=== PATIENT | female | born 1995 | race Caucasian/White ===

== ENCOUNTER 2018-09-16 14:06 | Outpatient (REF) | payer MEDICAID, SELFPAY ==
[2018-09-16 16:33] LABS: HCG Qual (Urine) Negative
== END 2018-09-16 14:26 ==
LOC: LBN 14:06
PROVIDERS: PCP Nurse Practitioner Family; Visit Provider Nurse Practitioner Family
DX: N91.2 Amenorrhea, unspecified (principal)
CPT/HCPCS: 81025

== ENCOUNTER 2018-09-19 01:00 | Outpatient (CLI) | payer MEDICAID, SELFPAY ==
--- NOTE | 2018-09-19 15:29 | DI.CT_ITS ---
SYMPTOM/DIAGNOSIS: ? STONE RT FLANK PAIN, R10.9, ABD PAIN RENAL COLIC CT: Routine examination was performed. There are no priors for comparison. There is no evidence of nephrolithiasis on the right. There is a 2 mm. non obstructing stone in the upper pole of the left kidney. No ureterolithiasis or obstructive uropathy is identified. The urinary bladder is intact. The reproductive organs are unremarkable. Lack of IV contrast does limit evaluation of the abdominal organs. The unenhanced visualized portions of the liver, spleen, pancreas, gallbladder and adrenal glands are unremarkable. The aorta is of normal caliber. The bowel shows no evidence of obstruction or inflammation. There is a normal appendix visualized. No significant abdominal or pelvic adenopathy, ascites or pneumoperitoneum is present. The lumbar spine is unremarkable. No evidence of significant foraminal or central spinal canal stenosis is present. IMPRESSION: Left nephrolithiasis. No evidence of ureterolithiasis or obstructive uropathy. Negative spine. No central spinal canal or neural foraminal stenosis is appreciated.
== END 2018-09-19 01:20 ==
PROVIDERS: PCP Nurse Practitioner Family; Visit Provider Nurse Practitioner Family
DX: R10.31 Right lower quadrant pain (principal); N20.0 Calculus of kidney
CPT/HCPCS: 74176

== ENCOUNTER 2018-09-27 16:00 | Outpatient (CLI) | payer MEDICAID, SELFPAY ==
[2018-09-27 16:54] LABS: Abs Immature Grans 0.01 k/cumm (0.0-0.09); Absolute Basophil Count 0.03 k/cumm (0.0-0.2); Absolute Eosinophil Count 0.17 k/cumm (0.0-0.7); Absolute Lymphocyte Count 1.38 k/cumm (1.2-3.4); Absolute Monocyte Count 0.31 k/cumm (0.11-0.7); Absolute Neutrophil Count 4.86 k/cumm (1.2-6.7); Basophils % 0.4; Eosinophils % 2.5; HCT 42.2 % (36.0-46.0); HGB 14.4 g/dL (12.0-15.5); Immature Grans % 0.1; Lymphocytes % 20.4; Mean Corp. HGB Concentration 34.1 g/dL (32.0-36.0); Mean Corpuscular Hemoglobin 30.4 pg (27.0-33.0); Mean Corpuscular Volume 89.2 fL (80-95); Mean Platelet Volume 11.5 fL (8.0-11.0); Monocytes % 4.6; Platelet Count 238 x1000/uL (130-400); RBC 4.73 m/cumm (4.00-5.20); RBC Distribution Width 13.6 % (11.7-14.6); White Blood Cell Count 6.76 k/cumm (4.4-10.8)
[2018-09-27 18:23] LABS: *AMPHETAMINES SCREEN URINE Negative (Negative); *BARBITURATES SCREEN URINE Negative (Negative); *BENZODIAZEPINES SCREEN URINE Negative (Negative); Cannabinoids THC POSITIVE (Negative); Cocaine Screen,Urine Negative (Negative); METHADONE URINE SCREEN Negative (Negative); OPIATES URINE SCREEN Negative (Negative)
[2018-09-27 18:30] LABS: Tricyclic Antidepressants POSITIVE (Negative)
[2018-09-27 18:33] LABS: ALT 19 U/L (12-78); AST 19 U/L (15-37); Albumin 4.1 g/dL (3.4-5.0); Alkaline Phosphatase 79 U/L (46-116); Anion Gap 12.4 mmol/L (3-11); BUN 8 mg/dL (7-18); Bilirubin, Total 0.4 mg/dL (0.2-1.0); CO2 25.6 mmol/L (21.0-32.0); CREATININE 0.88 mg/dL (0.55-1.02); Chloride 100 mmol/L (98-107); Glucose 85 mg/dL (70-100); Potassium 3.7 mmol/L (3.5-5.1); Sodium 138 mmol/L (136-145); TSH (W/Ref FT4) 1.04 uIU/mL (0.358-3.74); Total Protein 7.5 g/dL (6.4-8.2)
[2018-09-27 18:52] LABS: Vitamin B12 485 pg/mL (193-986)
[2018-09-27 19:11] LABS: Hemoglobin A1C 5.2 % (4.5-6.2)
[2018-09-27 19:28] LABS: HCG Qual (Serum) Negative
== END 2018-09-27 16:20 ==
PROVIDERS: PCP Nurse Practitioner Family; Visit Provider Nurse Practitioner Psychiatric/Mental Health
DX: F50.00 Anorexia nervosa, unspecified (principal); E63.9 Nutritional deficiency, unspecified; F33.1 Major depressive disorder, recurrent, moderate
CPT/HCPCS: 36415; 80053; 80307; 81025; 82607; 83036; 84443; 84703; 85025

== ENCOUNTER 2018-10-07 10:00 | Outpatient (CLI) | payer MEDICAID, SELFPAY ==
[2018-10-07 10:45] LABS: INR 1.1 (0.9-1.1); Prothrombin Time 10.8 sec (9.3-11.0)
[2018-10-07 11:34] LABS: Lithium 0.95 mmol/L (0.60-1.20)
== END 2018-10-07 10:20 ==
PROVIDERS: PCP Nurse Practitioner Family; Visit Provider Nurse Practitioner Psychiatric/Mental Health
DX: F33.1 Major depressive disorder, recurrent, moderate (principal); Z51.81 Encounter for therapeutic drug level monitoring; Z79.899 Other long term (current) drug therapy; R23.8 Other skin changes
CPT/HCPCS: 36415; 80178; 85610

== ENCOUNTER 2018-11-18 09:42 | Outpatient (CLI) | payer MEDICAID, SELFPAY ==
[2018-11-18 10:38] LABS: Abs Immature Grans 0.01 k/cumm (0.0-0.09); Absolute Basophil Count 0.03 k/cumm (0.0-0.2); Absolute Eosinophil Count 0.15 k/cumm (0.0-0.7); Absolute Lymphocyte Count 0.63 k/cumm (1.2-3.4); Absolute Monocyte Count 0.45 k/cumm (0.11-0.7); Basophils % 0.5; Eosinophils % 2.4; HCT 40.5 % (36.0-46.0); HGB 13.2 g/dL (12.0-15.5); Immature Grans % 0.2; Mean Corp. HGB Concentration 32.6 g/dL (32.0-36.0); Mean Corpuscular Hemoglobin 30.1 pg (27.0-33.0); Mean Corpuscular Volume 92.3 fL (80-95); Mean Platelet Volume 11.4 fL (8.0-11.0); Monocytes % 7.2; Neutrophils % 79.7; Platelet Count 249 x1000/uL (130-400); RBC 4.39 m/cumm (4.00-5.20); White Blood Cell Count 6.27 k/cumm (4.4-10.8)
[2018-11-18 12:00] LABS: Lithium 0.84 mmol/L (0.60-1.20)
[2018-11-18 12:22] LABS: ALT 23 U/L (12-78); AST 28 U/L (15-37); Albumin 3.8 g/dL (3.4-5.0); Alkaline Phosphatase 77 U/L (46-116); Anion Gap 7.5 mmol/L (3-11); BUN 11 mg/dL (7-18); Bilirubin, Total 0.4 mg/dL (0.2-1.0); CO2 30.5 mmol/L (21.0-32.0); CREATININE 0.79 mg/dL (0.55-1.02); Calcium 9.5 mg/dL (8.5-10.1); Chloride 99 mmol/L (98-107); Glucose 79 mg/dL (70-100); Sodium 137 mmol/L (136-145); Total Protein 6.9 g/dL (6.4-8.2)
== END 2018-11-18 10:02 ==
PROVIDERS: PCP Nurse Practitioner Family; Visit Provider Nurse Practitioner Psychiatric/Mental Health
DX: F31.2 Bipolar disorder, current episode manic severe with psychotic features (principal); Z51.81 Encounter for therapeutic drug level monitoring; Z79.899 Other long term (current) drug therapy
CPT/HCPCS: 36415; 80053; 80178; 85025

== ENCOUNTER 2018-11-18 14:58 | Outpatient (REF) | payer MEDICAID, SELFPAY ==
--- NOTE | 2018-11-18 14:00 | PAPFT_PTH ---
PATIENT: Edna Melgar LOC: [facility] U#:[id number] AGE/SX: 23/F ROOM: RE11/18/[address]: Mercedez Young NP : 1995 BED: DIS: 11/18/2018 SPEC #: [id number] RECD: 11/18/18 17:51 STATUS: LELIA ALBERTO #: [id number] DEBBIE: 11/18/18 14:[address]: Mercedez Young NP DEPT: [facility] Cytology RECD BY: Anu Joel ENTERED: 11/18/18 17:51 SP TYPE: PAPFT DON DR: Marlee Alvarez, SCHOOL SPEECH THERAPIST Tissues: 1 - CX/ENDOCX FOR PAP SMEARS Procedures: PAP THIN PREP/UVM Screening Comments: [id number] (CHLAMYDIA/GC)
[2018-11-21 14:41] LABS: GC Result Negative; Specimen Description SEE COMMENTS
[2018-11-21 15:32] LABS: Chlamydia Result Positive
== END 2018-11-18 15:18 ==
LOC: LBN 14:58
PROVIDERS: PCP Nurse Practitioner Family; Visit Provider Nurse Practitioner Women's Health
DX: Z12.4 Encounter for screening for malignant neoplasm of cervix (principal); Z11.3 Encounter for screening for infections with a predominantly sexual mode of transmission; Z11.51 Encounter for screening for human papillomavirus (HPV)
CPT/HCPCS: 87491; 87591; 88142

== ENCOUNTER 2018-11-25 01:38 | Outpatient (CLI) | payer MEDICAID, SELFPAY ==
--- NOTE | 2018-11-25 10:32 | PFT_ITS ---
PULMONARY FUNCTION TEST REPORT DATE OF SERVICE: November 25, 2018 REQUESTING PROVIDER: Marlee Alvarez N.P. Spirometry shows no evidence of obstructive airways disease, no bronchodilator response. Lung volumes show no evidence of restriction. Diffusion capacity normal. Airways resistance normal. IMPRESSION: Normal pulmonary function study. Clinical correlation recommended. If cold-induced asthma diagnosis is in question, proceeding with methacholine challenge testing may prove to be useful. ABIGAIL/claudine D/
[2018-11-25] MEDS: Albuterol HFA 18 GM 200 PUFF INH IH (13:59)
[2018-11-25] MEDS: Inhaler, Assist Device 1 EACH MC (13:59)
--- NOTE | 2018-11-25 14:35 | DI.RAD_ITS ---
SYMPTOMS/DIAGNOSIS: CHRONIC INTERMITTENT SOB, R06.02 PA AND LATERAL CHEST: Comparison is made with 1Feb16. The cardiac and mediastinal contours have a normal appearance. The lungs are well inflated and clear. No infiltrate, effusion or pneumothorax is seen. No bony abnormalities are identified. IMPRESSION: Negative chest x-ray.
== END 2018-11-25 01:58 ==
PROVIDERS: PCP Nurse Practitioner Family; Visit Provider Nurse Practitioner Family
DX: R06.02 Shortness of breath (principal)
CPT/HCPCS: 94060; 94150; 94726; 94729; 71046

== ENCOUNTER 2018-12-08 08:49 | Outpatient (CLI) | payer MEDICAID, SELFPAY ==
[2018-12-08 10:19] LABS: TSH (W/Ref FT4) 2.27 uIU/mL (0.358-3.74)
[2018-12-09 09:18] LABS: HIV-1/2 Ag & Ab Screen Negative (NEGAT); Hepatitis B Surface Ag Negative (NEGAT)
[2018-12-09 09:49] LABS: Hepatitis C Ab w Rflx HCV PCR Negative (NEGAT)
[2018-12-09 13:05] LABS: Syphilis Serology (RPR) Negative (Negative)
== END 2018-12-08 09:09 ==
PROVIDERS: PCP Nurse Practitioner Family; Referring Provider Nurse Practitioner Psychiatric/Mental Health; Visit Provider Nurse Practitioner Women's Health
DX: E03.9 Hypothyroidism, unspecified (principal); Z11.3 Encounter for screening for infections with a predominantly sexual mode of transmission; Z11.4 Encounter for screening for human immunodeficiency virus [HIV]; Z11.59 Encounter for screening for other viral diseases; F31.2 Bipolar disorder, current episode manic severe with psychotic features; Z51.81 Encounter for therapeutic drug level monitoring
CPT/HCPCS: 36415; 86803; 87340; 87389; 80178; 84443; 86592

== ENCOUNTER 2018-12-20 09:36 | Outpatient (CLI) | payer MEDICAID, SELFPAY ==
[2018-12-21 20:24] LABS: Alternaria Tenuis IgE <0.35 kU/L; Aspergillus Fumigatus IgE <0.35 kU/L; Bermuda Grass IgE <0.35 kU/L; Cat Epithelium IgE <0.35 kU/L; Cladosporium IgE <0.35 kU/L; Cocklebur IgE <0.35 kU/L; Cockroach IgE <0.35 kU/L; D Farinae IgE <0.35 kU/L; D Pteronyssinus IgE <0.35 kU/L; Dog Dander IgE <0.35 kU/L; Eastern Sycamore IgE <0.35 kU/L; Elm IgE <0.35 kU/L; Epicoccum purpurascens IgE <0.35 kU/L; Giant Ragweed IgE <0.35 kU/L; Lamb's Quarter IgE <0.35 kU/L; Oak IgE <0.35 kU/L; Penicillium chrysogenum IgE <0.35 kU/L; Rough Pigweed IgE <0.35 kU/L; Short Ragweed IgE <0.35 kU/L; Silver Birch IgE <0.35 kU/L; Stemphyllium IgE <0.35 kU/L; Timothy Grass IgE <0.35 kU/L; Walnut Tree IgE <0.35 kU/L
[2018-12-21 20:56] LABS: Wormwood IgE <0.35 kU/L
[2018-12-21 22:39] LABS: Cottonwood IgE <0.35 kU/L; Red Sorrel IgE <0.35 kU/L
[2018-12-23 17:42] LABS: CLASS 0; Cedar Red IgE <0.10 kU/L (<0.35); Fusarium oxysporum/vasinfectum <0.35 kU/L (<0.35); Rhodotorula IgE <0.35 kU/L (<0.35)
== END 2018-12-20 09:56 ==
PROVIDERS: PCP Nurse Practitioner Family; Visit Provider Otolaryngology Otolaryngology/Facial Plastic Surgery
DX: Z91.09 Other allergy status, other than to drugs and biological substances (principal)
CPT/HCPCS: 36415; 86003

== ENCOUNTER 2019-01-13 09:46 | Outpatient (CLI) | payer MEDICAID, SELFPAY ==
[2019-01-13 11:01] LABS: Lithium 1.42 mmol/L (0.60-1.20)
[2019-01-13 11:14] LABS: ALT 18 U/L (12-78); AST 19 U/L (15-37); Albumin 3.4 g/dL (3.4-5.0); Alkaline Phosphatase 72 U/L (46-116); Anion Gap 7.2 mmol/L (3-11); BUN 7 mg/dL (7-18); Bilirubin, Total 0.2 mg/dL (0.2-1.0); CO2 29.8 mmol/L (21.0-32.0); CREATININE 0.96 mg/dL (0.55-1.02); Chloride 104 mmol/L (98-107); Glucose 64 mg/dL (70-100); Potassium 3.6 mmol/L (3.5-5.1); Sodium 141 mmol/L (136-145); TSH (W/Ref FT4) 2.45 uIU/mL (0.358-3.74); Total Protein 6.7 g/dL (6.4-8.2)
[2019-01-13 11:19] LABS: Calcium 9.8 mg/dL (8.5-10.1)
== END 2019-01-13 10:06 ==
PROVIDERS: PCP Nurse Practitioner Family; Visit Provider Nurse Practitioner Family
DX: F31.2 Bipolar disorder, current episode manic severe with psychotic features (principal); Z51.81 Encounter for therapeutic drug level monitoring; Z79.899 Other long term (current) drug therapy; Z11.3 Encounter for screening for infections with a predominantly sexual mode of transmission
CPT/HCPCS: 36415; 80053; 87491; 87591; 80178; 84443

== ENCOUNTER 2019-01-13 12:19 | Outpatient (REF) | payer MEDICAID, SELFPAY ==
[2019-01-16 13:45] LABS: Chlamydia Result Negative; GC Result Negative; Specimen Description CERVIX
== END 2019-01-13 12:39 ==
LOC: LBN 12:19
PROVIDERS: PCP Nurse Practitioner Family; Visit Provider Nurse Practitioner Women's Health
DX: Z11.3 Encounter for screening for infections with a predominantly sexual mode of transmission (principal)
CPT/HCPCS: 87491; 87591

== ENCOUNTER 2019-01-25 09:25 | Outpatient (CLI) | payer MEDICAID, SELFPAY ==
[2019-01-25 11:18] LABS: BUN 8 mg/dL (7-18); CREATININE 0.85 mg/dL (0.55-1.02)
== END 2019-01-25 09:45 ==
PROVIDERS: PCP Nurse Practitioner Family; Visit Provider Nurse Practitioner Family
DX: F31.2 Bipolar disorder, current episode manic severe with psychotic features (principal); Z79.899 Other long term (current) drug therapy; Z51.81 Encounter for therapeutic drug level monitoring
CPT/HCPCS: 36415; 84520; 80178; 82565

== ENCOUNTER 2019-02-10 07:09 | Outpatient (CLI) | payer MEDICAID, SELFPAY ==
[2019-02-10 08:18] LABS: Lithium 1.08 mmol/L (0.60-1.20)
[2019-02-10 08:29] LABS: ALT 17 U/L (12-78); AST 18 U/L (15-37); Albumin 3.8 g/dL (3.4-5.0); Alkaline Phosphatase 74 U/L (46-116); Anion Gap 10.1 mmol/L (3-11); BUN 6 mg/dL (7-18); Bilirubin, Total 0.4 mg/dL (0.2-1.0); CO2 28.9 mmol/L (21.0-32.0); CREATININE 0.93 mg/dL (0.55-1.02); Calcium 9.6 mg/dL (8.5-10.1); Chloride 102 mmol/L (98-107); Glucose 108 mg/dL (70-100); Potassium 3.8 mmol/L (3.5-5.1); Sodium 141 mmol/L (136-145); TSH (W/Ref FT4) 2.77 uIU/mL (0.358-3.74); Total Protein 7.4 g/dL (6.4-8.2)
== END 2019-02-10 07:29 ==
PROVIDERS: PCP Nurse Practitioner Family; Visit Provider Nurse Practitioner Family
DX: F31.2 Bipolar disorder, current episode manic severe with psychotic features (principal); Z79.899 Other long term (current) drug therapy; Z51.81 Encounter for therapeutic drug level monitoring
CPT/HCPCS: 36415; 80053; 80178; 84443

== ENCOUNTER 2019-02-17 11:07 | Outpatient (REF) | payer MEDICAID, SELFPAY ==
[2019-02-20 13:55] LABS: Chlamydia Result Negative; GC Result Negative; Specimen Description URINE
== END 2019-02-17 11:27 ==
LOC: LBN 11:07
PROVIDERS: PCP Nurse Practitioner Family; Visit Provider Nurse Practitioner Women's Health
DX: Z11.3 Encounter for screening for infections with a predominantly sexual mode of transmission (principal)
CPT/HCPCS: 87491; 87591

== ENCOUNTER 2019-02-20 08:30 | Emergency (ER) | payer MEDICAID, SELFPAY ==
[2019-02-20 08:35] VITALS: BP 119/70; PULSE 100; RESP 18; TEMP 37
[2019-02-20 08:43] VITALS: RESP 18
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
--- NOTE | 2019-02-20 08:54 | NUR.NOTE ---
Nursing Note: Small bruise/hematoma noted to the right side of forehead. Pt denied dizziness, changes in vision, feeling light headed, nausea/vomiting, and loss of consciousness.
== END 2019-02-20 08:58 | disposition home or self-care (01) ==
PROVIDERS: Emergency Provider Student in an Organized Health Care Education/Training Program; PCP Nurse Practitioner Family
DX: S06.0X0A Concussion without loss of consciousness, initial encounter (principal); W22.8XXA Striking against or struck by other objects, initial encounter
CPT/HCPCS: 99283

== ENCOUNTER 2019-02-21 13:27 | Emergency (ER) | payer OTHER, SELFPAY ==
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
--- NOTE | 2019-02-21 13:46 | NUR.NOTE ---
Nursing Note: pt presents roberth working at [employer] pt got bleach in her eye. pt placed into a room immediately for flushing
[2019-02-21] MEDS: Erythromycin Ophth Oint 3.5 GM TUBE OD (14:02)
[2019-02-21 14:18] VITALS: PULSE 71; RESP 18; TEMP 37
--- NOTE | 2019-02-21 15:10 | NUR.NOTE ---
Nursing Note: Provider note faxed to [facility] for follow up this week. Abbi Belle.
== END 2019-02-21 14:18 | disposition home or self-care (01) ==
PROVIDERS: Emergency Provider Physician Assistant; PCP Nurse Practitioner Family
DX: T26.81XA Corrosions of other specified parts of right eye and adnexa, initial encounter (principal); T55.1X1A Toxic effect of detergents, accidental (unintentional), initial encounter
CPT/HCPCS: 99283

== ENCOUNTER 2019-03-15 12:44 | Emergency (ER) | payer MEDICAID, SELFPAY ==
[2019-03-15 12:52] VITALS: BP 109/70; PULSE 104; RESP 17; TEMP 37.2; O2SAT 98
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
== END 2019-03-15 13:15 | disposition home or self-care (01) ==
PROVIDERS: Emergency Provider Emergency Medicine; PCP Nurse Practitioner Family
DX: H10.32 Unspecified acute conjunctivitis, left eye (principal)
CPT/HCPCS: 99283

== ENCOUNTER 2019-04-17 08:34 | Outpatient (CLI) | payer MEDICAID, SELFPAY ==
[2019-04-17 09:51] LABS: Lithium 1.18 mmol/L (0.60-1.20)
[2019-04-17 10:03] LABS: ALT 17 U/L (12-78); AST 15 U/L (15-37); Albumin 3.3 g/dL (3.4-5.0); Alkaline Phosphatase 69 U/L (46-116); Anion Gap 7.2 mmol/L (3-11); BUN 6 mg/dL (7-18); Bilirubin, Total 0.4 mg/dL (0.2-1.0); CO2 29.8 mmol/L (21.0-32.0); CREATININE 0.85 mg/dL (0.55-1.02); Calcium 9.1 mg/dL (8.5-10.1); Chloride 106 mmol/L (98-107); Glucose 107 mg/dL (70-100); Potassium 3.7 mmol/L (3.5-5.1); Sodium 143 mmol/L (136-145); TSH (W/Ref FT4) 16.46 uIU/mL (0.36-3.74); Total Protein 6.5 g/dL (6.4-8.2)
[2019-04-17 10:23] LABS: FREE T4 0.75 ng/dL (0.76-1.46)
== END 2019-04-17 08:54 ==
PROVIDERS: PCP Nurse Practitioner Family; Visit Provider Nurse Practitioner Family
DX: F31.2 Bipolar disorder, current episode manic severe with psychotic features (principal); Z51.81 Encounter for therapeutic drug level monitoring; Z79.899 Other long term (current) drug therapy
CPT/HCPCS: 36415; 80053; 80178; 84439; 84443

== ENCOUNTER 2019-04-21 13:27 | Outpatient (CLI) | payer MEDICAID, SELFPAY ==
[2019-04-21 15:37] LABS: TSH (W/Ref FT4) 2.14 uIU/mL (0.36-3.74)
[2019-04-22 10:19] LABS: HIV-1/2 Ag & Ab Screen Negative (NEGAT)
[2019-04-22 16:47] LABS: Syphilis Total Ab w/Reflex Nonreactive (Nonreactive)
[2019-04-24 11:01] LABS: Hepatitis C Ab w Rflx HCV PCR Negative (NEGAT)
[2019-04-24 11:06] LABS: Hepatitis B Surface Ag Negative (NEGAT)
[2019-04-24 14:19] LABS: Chlamydia Result Negative; GC Result Negative
== END 2019-04-21 13:47 ==
PROVIDERS: PCP Nurse Practitioner Family; Visit Provider Nurse Practitioner Women's Health
DX: Z11.3 Encounter for screening for infections with a predominantly sexual mode of transmission (principal); E03.9 Hypothyroidism, unspecified; R30.0 Dysuria
CPT/HCPCS: 36415; 86803; 87077; 87340; 87389; 87491; 87591; 84443; 86780; 87086; 87186

== ENCOUNTER 2019-05-16 10:16 | Emergency (ER) | payer MEDICAID, SELFPAY ==
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
[2019-05-16 10:24] VITALS: BP 119/70; PULSE 101; RESP 16; TEMP 36.7; O2SAT 100
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
[2019-05-16 10:38] VITALS: BP 119/70; PULSE 101; RESP 16; TEMP 36.7; O2SAT 100
== END 2019-05-16 10:30 | disposition home or self-care (01) ==
PROVIDERS: Emergency Provider Student in an Organized Health Care Education/Training Program; PCP Nurse Practitioner Family
DX: H93.8X1 Other specified disorders of right ear (principal); L25.9 Unspecified contact dermatitis, unspecified cause
CPT/HCPCS: 99283

== ENCOUNTER 2019-05-16 14:35 | Outpatient (REF) | payer MEDICAID, SELFPAY ==
[2019-05-17 14:10] LABS: Chlamydia Result Negative; GC Result Negative; Specimen Description URINE
== END 2019-05-16 14:55 ==
LOC: LBN 14:35
PROVIDERS: PCP Nurse Practitioner Family; Visit Provider Nurse Practitioner Family
DX: Z11.3 Encounter for screening for infections with a predominantly sexual mode of transmission (principal); R30.0 Dysuria
CPT/HCPCS: 36415; 87491; 87591; 87086

== ENCOUNTER 2019-08-01 15:59 | Outpatient (REF) | payer MEDICAID, SELFPAY | END 2019-08-01 16:19 | LOC: LBN 15:59 | PROVIDERS: PCP Nurse Practitioner Family; Visit Provider Nurse Practitioner Women's Health | DX: R30.0 Dysuria (principal) | CPT/HCPCS: 87086 ==

== ENCOUNTER 2019-08-13 09:03 | Outpatient (CLI) | payer MEDICAID, SELFPAY ==
[2019-08-13 09:40] LABS: Absolute Basophil Count 0.05 k/cumm (0.0-0.2); Absolute Eosinophil Count 0.14 k/cumm (0.0-0.7); Absolute Lymphocyte Count 1.66 k/cumm (1.2-3.4); Absolute Monocyte Count 0.32 k/cumm (0.11-0.7); Basophils % 1.2; Eosinophils % 3.4; HCT 38.4 % (36.0-46.0); HGB 12.4 g/dL (12.0-15.5); Lymphocytes % 39.8; Mean Corp. HGB Concentration 32.3 g/dL (32.0-36.0); Mean Corpuscular Hemoglobin 28.4 pg (27.0-33.0); Mean Corpuscular Volume 88.1 fL (80-95); Mean Platelet Volume 12.1 fL (8.0-11.0); Monocytes % 7.7; Neutrophils % 47.9; Platelet Count 236 x1000/uL (130-400); RBC 4.36 m/cumm (4.00-5.20); White Blood Cell Count 4.17 k/cumm (4.4-10.8)
[2019-08-13 09:48] LABS: VALPROIC ACID 47.6 ug/mL (50-100)
[2019-08-13 10:11] LABS: ALT 12 U/L (14-59); AST 14 U/L (15-37); Albumin 3.4 g/dL (3.4-5.0); Alkaline Phosphatase 44 U/L (46-116); Anion Gap 10.7 mmol/L (3-11); BUN 11 mg/dL (7-18); Bilirubin, Total 0.3 mg/dL (0.2-1.0); CO2 26.3 mmol/L (21.0-32.0); CREATININE 0.92 mg/dL (0.55-1.02); Calcium 8.6 mg/dL (8.5-10.1); Chloride 104 mmol/L (98-107); Glucose 104 mg/dL (74-106); Potassium 3.9 mmol/L (3.5-5.1); Sodium 141 mmol/L (136-145); Total Protein 6.8 g/dL (6.4-8.2)
== END 2019-08-13 09:23 ==
PROVIDERS: PCP Nurse Practitioner Family; Visit Provider Nurse Practitioner Family
DX: F31.2 Bipolar disorder, current episode manic severe with psychotic features (principal); Z79.899 Other long term (current) drug therapy; Z51.81 Encounter for therapeutic drug level monitoring
CPT/HCPCS: 36415; 80053; 80164; 85025

== ENCOUNTER 2019-08-23 16:48 | Outpatient (REF) | payer MEDICAID, SELFPAY ==
[2019-08-25 15:15] LABS: Chlamydia Result Negative (Negative)
[2019-08-29 09:40] LABS: GC Result Negative (Negative)
== END 2019-08-23 17:08 ==
LOC: LBN 16:48
PROVIDERS: PCP Nurse Practitioner Family; Visit Provider Nurse Practitioner Women's Health
DX: R30.0 Dysuria (principal); Z11.3 Encounter for screening for infections with a predominantly sexual mode of transmission
CPT/HCPCS: 87491; 87591; 87086

== ENCOUNTER 2019-09-08 19:37 | Emergency (ER) | payer MEDICAID, SELFPAY ==
[2019-09-08 19:40] VITALS: BP 118/77; PULSE 98; RESP 16; TEMP 36.6; O2SAT 99
--- NOTE | 2019-09-08 19:49 | NUR.NOTE ---
Nursing Note: pt unable to void. pt asked for water. attempting to hydrate at this time.
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
[2019-09-08] MEDS: Ondansetron O.D.T. 4 MG TABEF PO (20:14)
[2019-09-08 20:18] LABS: Bilirubin Negative (Negative); Blood Negative (Negative); Clarity Sl Cloudy (Clear); Glucose Negative (Negative); Ketones Trace mg/dL (Negative); Leukocyte Esterase Small (Negative); Nitrite Negative (Negative); Specific Gravity >= 1.030 (1.005-1.025); Urobilinogen 0.2 EU/dL (Up TO 0.2); pH 5.5 (5-8)
[2019-09-08 20:33] LABS: Bacteria Rare HPF (Negative); C & S Indicated? No/Sq. Contamination; Crystals Negative HPF (Negative); Epithelial Cells Many HPF (Negative); Mucus Negative (Negative); RBC Negative HPF (0-2); WBC 20-50 HPF (0-5)
== END 2019-09-08 20:45 | disposition home or self-care (01) ==
PROVIDERS: Emergency Provider Emergency Medicine; PCP Nurse Practitioner Family
DX: R11.0 Nausea (principal); K58.9 Irritable bowel syndrome, unspecified
CPT/HCPCS: 81025; 99283; 81003; 81015

== ENCOUNTER 2019-09-19 09:27 | Outpatient (CLI) | payer MEDICAID, SELFPAY ==
[2019-09-19 10:30] LABS: Abs Immature Grans 0.01 k/cumm (0.0-0.09); Absolute Basophil Count 0.03 k/cumm (0.0-0.2); Absolute Eosinophil Count 0.07 k/cumm (0.0-0.7); Absolute Lymphocyte Count 1.27 k/cumm (1.2-3.4); Absolute Neutrophil Count 2.05 k/cumm (1.2-6.7); Basophils % 0.8; Eosinophils % 1.8; HCT 40.7 % (36.0-46.0); Immature Grans % 0.3 %; Lymphocytes % 33.2; Mean Corp. HGB Concentration 31.9 g/dL (32.0-36.0); Mean Corpuscular Hemoglobin 28.4 pg (27.0-33.0); Mean Corpuscular Volume 88.9 fL (80-95); Mean Platelet Volume 12.3 fL (8.0-11.0); Monocytes % 10.4; Neutrophils % 53.5; Platelet Count 213 x1000/uL (130-400); RBC 4.58 m/cumm (4.00-5.20); White Blood Cell Count 3.83 k/cumm (4.4-10.8)
[2019-09-19 10:38] LABS: VALPROIC ACID 111.1 ug/mL (50-100)
[2019-09-19 10:50] LABS: ALT 22 U/L (14-59); AST 21 U/L (15-37)
== END 2019-09-19 09:47 ==
PROVIDERS: PCP Nurse Practitioner Family; Visit Provider Nurse Practitioner Family
DX: F31.2 Bipolar disorder, current episode manic severe with psychotic features (principal); Z79.899 Other long term (current) drug therapy; Z51.81 Encounter for therapeutic drug level monitoring
CPT/HCPCS: 36415; 80164; 84450; 84460; 85025

== ENCOUNTER 2019-10-24 16:34 | Emergency (ER) | payer MEDICAID, SELFPAY ==
[2019-10-24 16:36] VITALS: BP 106/49; PULSE 72; TEMP 36.3; O2SAT 95
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
--- NOTE | 2019-10-24 17:30 | NUR.NOTE ---
Referral faxed to [facility] [phone].Nursing Note:
== END 2019-10-24 17:44 | disposition home or self-care (01) ==
PROVIDERS: Emergency Provider Physician Assistant; PCP Nurse Practitioner Family
DX: R11.0 Nausea (principal)
CPT/HCPCS: 81025; 99283

== ENCOUNTER 2019-11-02 01:37 | Outpatient (CLI) | payer MEDICAID, SELFPAY ==
--- NOTE | 2019-11-02 15:30 | DI.US_ITS ---
EXAM: US ABDOMEN LIMITED CLINICAL HISTORY: ruq pain/nausea/family hx of gallstones TECHNIQUE: Ultrasound performed using standard protocol of the right upper quadrant.. FINDINGS: The liver is normal in size and echogenicity. No focal liver lesions or biliary dilatation is seen . The gallbladder is unremarkable, without evidence of stones or thickening. There is no right uppe r quadrant fluid. The right kidney, pancreas and aorta are unremarkable. IMPRESSION: Negative right upper quadrant ultrasound. No evidence of cholelithiasis. DATA REPOSITORY:
== END 2019-11-02 01:57 ==
PROVIDERS: PCP Nurse Practitioner Family; Visit Provider Surgery
DX: R10.11 Right upper quadrant pain (principal); R11.0 Nausea
CPT/HCPCS: 76705

== ENCOUNTER 2019-11-02 15:53 | Outpatient (CLI) | payer MEDICAID, SELFPAY ==
[2019-11-02 16:19] LABS: VALPROIC ACID 38.4 ug/mL (50-100)
[2019-11-02 16:30] LABS: ALT 21 U/L (14-59); AST 21 U/L (15-37)
== END 2019-11-02 16:13 ==
PROVIDERS: PCP Nurse Practitioner Family; Visit Provider Nurse Practitioner Family
DX: F31.2 Bipolar disorder, current episode manic severe with psychotic features (principal); Z51.81 Encounter for therapeutic drug level monitoring; Z79.899 Other long term (current) drug therapy
CPT/HCPCS: 36415; 80164; 84450; 84460

== ENCOUNTER 2019-11-14 00:33 | Emergency (ER) | payer MEDICAID, SELFPAY ==
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
[2019-11-14 00:47] VITALS: BP 117/75; PULSE 89; RESP 18; TEMP 36.8
--- NOTE | 2019-11-14 01:04 | NUR.NOTE ---
Nursing Note: Attempt IV x 1 without success.
[2019-11-14] MEDS: Metoclopramide 10 MG/2 ML VIAL IVP (01:12)
[2019-11-14] MEDS: diphenhydrAMINE 50 MG/ML VIAL 12.5 MG IVP (01:12)
[2019-11-14] MEDS: Ketorolac 15 MG/ML VIAL IVP (01:13)
[2019-11-14] MEDS: Lactated Ringers 1,000 ML 1000 ML IV (01:14)
== END 2019-11-14 02:00 | disposition home or self-care (01) ==
PROVIDERS: Emergency Provider Emergency Medicine; PCP Nurse Practitioner Family
DX: R51 Headache (principal)
CPT/HCPCS: 96361; 96374; 96375; 99284; J1200; J1885; J2765

== ENCOUNTER 2019-11-17 03:37 | Outpatient (CLI) | payer MEDICAID, SELFPAY ==
--- NOTE | 2019-11-17 09:45 | DI.RAD_ITS ---
EXAM: XR CHEST 2V PA LATERAL CLINICAL HISTORY: r.o structural cardiopulm R00.2 PALPITATIONS TECHNIQUE: 2D digital imaging was performed. COMPARISON: No exams were available for comparison FINDINGS: MEDIASTINUM: Normal. HEART: Normal. PULMONARY VASCULATURE: Normal. LUNGS: Clear. PLEURAL SPACE: No pleural effusion or pneumothorax. BONE:Normal. OTHER FINDINGS:Normal. IMPRESSION: No acute pulmonary findings. DATA REPOSITORY: RADIATION DOSE DELIVERED:
[2019-11-17 11:33] LABS: TSH (W/Ref FT4) 0.71 uIU/mL (0.36-3.74)
== END 2019-11-17 03:57 ==
PROVIDERS: PCP Nurse Practitioner Family; Visit Provider Nurse Practitioner Family
DX: R00.2 Palpitations (principal)
CPT/HCPCS: 36415; 71046; 84443

== ENCOUNTER 2019-11-22 04:18 | Outpatient (CLI) | payer MEDICAID, SELFPAY | END 2019-11-22 04:38 | PROVIDERS: PCP Nurse Practitioner Family; Visit Provider Nurse Practitioner Family | DX: R00.2 Palpitations (principal); I49.1 Atrial premature depolarization; I49.3 Ventricular premature depolarization | CPT/HCPCS: 93225 ==

== ENCOUNTER 2019-11-23 09:27 | Outpatient (REF) | payer MEDICAID, SELFPAY | END 2019-11-23 09:47 | LOC: LBN 09:27 | PROVIDERS: PCP Nurse Practitioner Family; Visit Provider Nurse Practitioner Women's Health | DX: R30.0 Dysuria (principal) | CPT/HCPCS: 87077; 87086; 87186 ==

== ENCOUNTER 2019-11-24 08:41 | Outpatient (CLI) | payer MEDICAID, SELFPAY ==
--- NOTE | 2019-11-24 10:01 | W.HOLTRPT ---
Date of service: 11/24/19 Time of Service: 10:01 Holter Monitor Report Holter Monitor Note: This is a 2-day Holter monitor ordered for indication of palpitations. ?Patient was in normal sinus rhythm for the majority of the recording. Mean heart rate was 84 bpm. ?There were 0 episodes of supraventricular tachycardia and 3 total premature atrial contractions. ?There were 0 episodes of ventricular tachycardia and one single ventricular ectopic beat. ?There were no episodes of atrial fibrillation, no pauses greater than 3 seconds and no evidence of high degree heart block. ?There were no patient triggered events.
== END 2019-11-24 09:01 ==
PROVIDERS: PCP Nurse Practitioner Family; Visit Provider Nurse Practitioner Family
DX: R00.2 Palpitations (principal); I49.1 Atrial premature depolarization; I49.3 Ventricular premature depolarization
CPT/HCPCS: 93226

== ENCOUNTER 2020-03-04 11:38 | Outpatient (CLI) | payer MEDICAID, SELFPAY ==
[2020-03-05 00:30] LABS: COVID-19 RT-PCR UVMMC Result Negative (Negative)
== END 2020-03-04 11:58 ==
PROVIDERS: PCP Nurse Practitioner Family; Visit Provider Nurse Practitioner Family
DX: Z11.59 Encounter for screening for other viral diseases (principal); R68.89 Other general symptoms and signs
CPT/HCPCS: U0003

== ENCOUNTER 2020-03-14 15:30 | Outpatient (REF) | payer MEDICAID, SELFPAY ==
[2020-03-15 14:39] LABS: Chlamydia Result Negative (Negative); GC Result Negative (Negative)
== END 2020-03-14 15:50 ==
LOC: LBN 15:30
PROVIDERS: PCP Nurse Practitioner Family; Visit Provider Nurse Practitioner Family
DX: R30.0 Dysuria (principal); Z11.3 Encounter for screening for infections with a predominantly sexual mode of transmission
CPT/HCPCS: 87491; 87591; 87086

== ENCOUNTER 2020-04-12 02:04 | Outpatient (CLI) | payer MEDICAID, SELFPAY ==
[2020-04-12 12:42] LABS: Absolute Basophil Count 0.03 10^3/uL (0.0-0.2); Absolute Eosinophil Count 0.04 10^3/uL (0.0-0.7); Absolute Lymphocyte Count 1.84 10^3/uL (1.2-3.4); Absolute Monocyte Count 0.28 10^3/uL (0.1-0.8); Absolute Neutrophil Count 2.75 10^3/uL (1.2-6.7); Basophils % 0.6; Eosinophils % 0.8; HCT 35.5 % (36.0-46.0); HGB 11.8 g/dL (11.2-15.7); Lymphocytes % 37.2; MCH 30.4 pg (27.0-33.0); MCHC 33.2 % (32.0-36.0); MCV 91.5 fL (80-95); MPV 10.7 fL (8.0-11.0); Monocytes % 5.7; Neutrophils % 55.7; Platelet Count 202 10^3/uL (130-400); RBC 3.88 10^6/uL (3.93-5.22); RDW 14.4 % (11.7-14.6); RDW-SD 47.7 fL; WBC 4.94 10^3/uL (4.4-10.8)
[2020-04-12 13:01] LABS: PTT Activated 25.2 sec (21.0-31.4); Prothrombin Time 10.1 sec (9.3-11.0)
[2020-04-12 14:48] LABS: ALT 28 U/L (14-59); AST 28 U/L (15-37); Albumin 3.3 g/dL (3.4-5.0); Alkaline Phosphatase 71 U/L (46-116); Anion Gap 11.4 mmol/L (3-11); BUN 4 mg/dL (7-18); Bilirubin, Total 0.3 mg/dL (0.2-1.0); CO2 23.6 mmol/L (21.0-32.0); CREATININE 0.78 mg/dL (0.55-1.02); Calcium 9.1 mg/dL (8.5-10.1); Chloride 103 mmol/L (98-107); Glucose 97 mg/dL (74-106); Potassium 3.9 mmol/L (3.5-5.1); Sodium 138 mmol/L (136-145); Total Protein 6.3 g/dL (6.4-8.2)
== END 2020-04-12 02:24 ==
PROVIDERS: PCP Nurse Practitioner Family; Visit Provider Nurse Practitioner Family
DX: R23.3 Spontaneous ecchymoses (principal)
CPT/HCPCS: 36415; 80053; 85025; 85610; 85730

== ENCOUNTER 2020-04-19 03:40 | Outpatient (CLI) | payer MEDICAID, SELFPAY ==
--- NOTE | 2020-04-19 07:30 | DI.NM_ITS ---
EXAM: NM HEPATOBILIARY CCK GRP CLINICAL HISTORY: RUQ POSTPRANDIAL ABD PAIN, R10.11. COMPARISON: No exams were available for comparison EXAMINATION: Hepatic biliary scan was performed according to the usual protocol with injection of 5. 0 millicuries of technetium 99 labeled MebroFenin. Following intravenous infusion of radiopharmaceut ical there was prompt homogeneous hepatic uptake and prompt uptake in the bile ducts, small intestine , and gallbladder. Following injection 1 microgram of cholecystokinin gallbladder ejection fraction was calculated at 69 percent which is in the normal range. The patient reported mild abdominal pain following injection of CCK. FINDINGS: Normal CCK HIDA scan. IMPRESSION:
[2020-04-19] MEDS: Sincalide 5 MCG VIAL 1 MCG IJ (11:17)
== END 2020-04-19 04:00 ==
PROVIDERS: PCP Nurse Practitioner Family; Visit Provider Physical Therapy Assistant
DX: R10.11 Right upper quadrant pain (principal)
CPT/HCPCS: 78227

== ENCOUNTER 2020-08-27 15:04 | Outpatient (REF) | payer MEDICAID, SELFPAY ==
--- NOTE | 2020-08-27 13:45 | PAPFT_PTH ---
PATIENT: Edna Melgar LOC: [facility] U#:[id number] AGE/SX: 25/F ROOM: RE08/27/[address]: CRIS García : 1995 BED: DIS: 08/27/2020 SPEC #: [id number] RECD: 08/27/20 18:04 STATUS: LELIA REQ #: [id number] DEBBIE: 08/27/20 13:[address]: Malathi Davis DEPT: [facility] Cytology RECD BY: Anu Joel ENTERED: 08/27/20 18:04 SP TYPE: PAPFT DON DR: Marlee Alvarez APRN Tissues: 1 - CX/ENDOCX FOR PAP SMEARS Procedures: PAP THIN PREP/[facility] Screening Comments: [id number]
[2020-08-28 13:26] LABS: Chlamydia Result Negative (Negative); GC Result Negative (Negative)
== END 2020-08-27 15:24 ==
LOC: LBN 15:04
PROVIDERS: PCP Nurse Practitioner Family; Visit Provider Nurse Practitioner Family
DX: R30.0 Dysuria (principal); Z11.3 Encounter for screening for infections with a predominantly sexual mode of transmission; Z12.4 Encounter for screening for malignant neoplasm of cervix; R87.612 Low grade squamous intraepithelial lesion on cytologic smear of cervix (LGSIL)
CPT/HCPCS: 87491; 87591; 88142; 87086

== ENCOUNTER 2020-12-27 12:22 | Outpatient (REF) | payer MEDICAID, SELFPAY ==
[2020-12-30 15:19] LABS: Chlamydia Result Negative (Negative); GC Result Negative (Negative)
== END 2020-12-27 12:23 | disposition home or self-care (01) ==
LOC: LBN 12:22
PROVIDERS: PCP Nurse Practitioner Family; Visit Provider Nurse Practitioner Family
DX: R30.0 Dysuria (principal); Z11.3 Encounter for screening for infections with a predominantly sexual mode of transmission
CPT/HCPCS: 87491; 87591; 87086

== ENCOUNTER 2021-06-24 03:44 | Outpatient (CLI) | payer MEDICAID, SELFPAY ==
[2021-06-24 15:59] LABS: HCT 37.3 % (36.0-46.0); HGB 12.6 g/dL (11.2-15.7); MCH 31.5 pg (27.0-33.0); MCHC 33.8 % (32.0-36.0); MCV 93.3 fL (80-95); MPV 11.2 fL (8.0-11.0); Platelet Count 208 10^3/uL (130-400); RDW 11.7 % (11.7-14.6); RDW-SD 40.5 fL
[2021-06-24 16:56] LABS: ALT 24 U/L (14-59); AST 20 U/L (15-37); Albumin 3.4 g/dL (3.4-5.0); Alkaline Phosphatase 51 U/L (46-116); Anion Gap 9.2 mmol/L (3-11); BUN 7 mg/dL (7-18); Bilirubin, Total 0.3 mg/dL (0.2-1.0); CO2 26.8 mmol/L (21.0-32.0); CREATININE 0.8 mg/dL (0.55-1.02); Calcium 8.7 mg/dL (8.5-10.1); Chloride 104 mmol/L (98-107); Ferritin 22 ng/mL (8-252); Glucose 89 mg/dL (74-106); Potassium 3.9 mmol/L (3.5-5.1); Sodium 140 mmol/L (136-145); TSH (W/Ref FT4) 2.37 uIU/mL (0.36-3.74); Total Protein 6.3 g/dL (6.4-8.2)
== END 2021-06-24 03:45 | disposition home or self-care (01) ==
LOC: LBO 03:44
PROVIDERS: PCP Nurse Practitioner Family; Visit Provider Nurse Practitioner
DX: R55 Syncope and collapse (principal); F41.8 Other specified anxiety disorders; E78.00 Pure hypercholesterolemia, unspecified; R79.89 Other specified abnormal findings of blood chemistry
CPT/HCPCS: 36415; 80053; 85027; 82728; 84443

== ENCOUNTER 2021-09-22 10:53 | Outpatient (REF) | payer MEDICAID, SELFPAY ==
--- NOTE | 2021-09-22 10:30 | PAPFT_PTH ---
PATIENT: Edna Melgar LOC: [facility] U#:[id number] AGE/SX: 26/F ROOM: RE09/22/[address]: CRIS García : 1995 BED: DIS: 09/22/2021 SPEC #: [id number] RECD: 09/22/21 13:01 STATUS: LELIA REAnabela #: [id number] DEBBIE: 09/22/21 10:[address]: Malathi Davis DEPT: [facility] Cytology RECD BY: Anu Joel ENTERED: 09/22/21 13:01 SP TYPE: PAPFT OTHR DR: Marlee Alvarez APRN Tissues: 1 - CX/ENDOCX FOR PAP SMEARS Procedures: PAP THIN PREP/[facility] Screening Comments: [id number]
[2021-09-23 15:04] LABS: Chlamydia Result Negative (Negative); GC Result Negative (Negative)
== END 2021-09-22 10:54 | disposition home or self-care (01) ==
LOC: LBN 10:53
PROVIDERS: PCP Nurse Practitioner Family; Visit Provider Nurse Practitioner Family
DX: Z11.3 Encounter for screening for infections with a predominantly sexual mode of transmission (principal); Z12.4 Encounter for screening for malignant neoplasm of cervix
CPT/HCPCS: 87491; 87591; 88142

== ENCOUNTER 2021-12-26 13:27 | Outpatient (REF) | payer MEDICAID, SELFPAY | END 2021-12-26 13:28 | disposition home or self-care (01) | LOC: LBN 13:27 | PROVIDERS: PCP Nurse Practitioner Family; Visit Provider Nurse Practitioner Family | DX: R35.0 Frequency of micturition (principal) | CPT/HCPCS: 87086 ==

== ENCOUNTER 2022-04-08 14:56 | Outpatient (REF) | payer MEDICAID, SELFPAY ==
[2022-04-09 14:58] LABS: GC Result Negative (Negative)
[2022-04-09 15:14] LABS: Chlamydia Result Positive (Negative)
== END 2022-04-08 14:57 | disposition home or self-care (01) ==
LOC: LBN 14:56
PROVIDERS: PCP Nurse Practitioner Family; Visit Provider Nurse Practitioner Women's Health
DX: Z11.3 Encounter for screening for infections with a predominantly sexual mode of transmission (principal)
CPT/HCPCS: 87491; 87591

== ENCOUNTER → 2022-05-20 03:41 | Outpatient (CLI) | payer MEDICAID, SELFPAY ==
--- NOTE | 2022-05-20 07:15 | DI.US_ITS ---
Exam(s) US PELVIS TRANSVAGINAL EXAM: US PELVIS TRANSVAGINAL CLINICAL HISTORY: pelvic pain and AUB, R10.2, N93.9. TECHNIQUE: Transabdominal and transvaginal pelvic ultrasound was performed using standard protocol. FINDINGS: UTERUS: Position: Retroverted. Size: 5.2 long by 2.7 AP by 3.2 transverse cm Endometrium: 0.4 cm. Normal for patient's menstrual status. There is an IUD seen in good position. Myometrium: Unremarkable. Cervix: Unremarkable. OVARIES: Right: 2.6 x 1.2 x 3.6 cm Cyst or mass: No suspicious cystic or solid masses. Left: 2.3 x 2.8 x 2.0 cm Cyst or mass: No suspicious cystic or solid masses. DOPPLER: Color: Symmetric and uniform flow to both ovaries. CUL-DE-SAC: Free fluid: Small amount of free fluid in the cul-de-sac. Other: None. IMPRESSION: 1. Normal-appearing uterus with endometrial stripe within normal limits. 2. IUD is in good position. 3. Unremarkable bilateral ovaries. DATA REPOSITORY:
== END ==
PROVIDERS: PCP Nurse Practitioner Family; Visit Provider Nurse Practitioner Women's Health
DX: R10.2 Pelvic and perineal pain (principal); N93.9 Abnormal uterine and vaginal bleeding, unspecified; Z97.5 Presence of (intrauterine) contraceptive device
CPT/HCPCS: 76830; 76856

== ENCOUNTER 2022-06-22 17:55 | Outpatient (REF) | payer MEDICAID, SELFPAY ==
[2022-06-24 16:59] LABS: Chlamydia Result Negative (Negative); GC Result Negative (Negative)
== END 2022-06-22 17:56 | disposition home or self-care (01) ==
LOC: LBN 17:55
PROVIDERS: PCP Nurse Practitioner Family; Visit Provider Nurse Practitioner Women's Health
DX: Z11.3 Encounter for screening for infections with a predominantly sexual mode of transmission (principal)
CPT/HCPCS: 87491; 87591

== ENCOUNTER 2022-09-04 15:48 | Outpatient (REF) | payer MEDICAID, SELFPAY ==
[2022-09-08 16:55] LABS: HSV 1 DNA Result Negative (Negative); HSV 2 DNA Result Negative (Negative)
== END 2022-09-04 15:49 | disposition home or self-care (01) ==
LOC: LBN 15:48
PROVIDERS: PCP Nurse Practitioner Family; Visit Provider Advanced Practice Midwife
DX: B00.1 Herpesviral vesicular dermatitis (principal); A60.09 Herpesviral infection of other urogenital tract
CPT/HCPCS: 87529

== ENCOUNTER 2022-09-22 18:31 | Emergency (ER) | payer MEDICAID, SELFPAY ==
[2022-09-22] VITALS (18 sets, daily range): BP systolic 86–110; BP diastolic 47–65; PULSE 64–92; RESP 13–19; TEMP 37.2; O2SAT 94–100
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
[2022-09-22 18:59] LABS: Abs Immature Grans 0.04 10^3/uL (0.0-0.06); Absolute Basophil Count 0.03 10^3/uL (0.0-0.2); Absolute Eosinophil Count 0.19 10^3/uL (0.0-0.7); Absolute Lymphocyte Count 2.52 10^3/uL (1.2-3.4); Absolute Monocyte Count 0.44 10^3/uL (0.1-0.8); Absolute Neutrophil Count 5.71 10^3/uL (1.2-6.7); Basophils % 0.3; Eosinophils % 2.1; HCT 38.3 % (36.0-46.0); HGB 12.6 g/dL (11.2-15.7); Immature Grans % 0.4; Lymphocytes % 28.2; MCH 31.2 pg (27.0-33.0); MCHC 32.9 % (32.0-36.0); MCV 95 fL (80-95); MPV 10.2 fL (8.0-11.0); Monocytes % 4.9; Neutrophils % 64.1; Platelet Count 309 10^3/uL (130-400); RBC 4.04 10^6/uL (3.93-5.22); RDW 13.9 % (11.7-14.6); RDW-SD 47.7 fL; WBC 8.93 10^3/uL (4.4-10.8)
[2022-09-22] MEDS: Omnipaque 350 MG/ML 100 ML BTL 68 ML IJ (19:12)
[2022-09-22] MEDS: Normal Saline Flush 10 ML SYR IVP (19:13)
[2022-09-22 19:23] LABS: ALT 20 U/L (14-59); AST 32 U/L (15-37); Albumin 3.1 g/dL (3.4-5.0); Alkaline Phosphatase 97 U/L (46-116); Anion Gap 7.3 mmol/L (3-11); BUN 6 mg/dL (7-18); Bilirubin, Total 0.3 mg/dL (0.2-1.0); CO2 26.7 mmol/L (21.0-32.0); Calcium 8.2 mg/dL (8.5-10.1); Chloride 106 mmol/L (98-107); Estimated GFR 79.68 (mL/min/1.73m2); Glucose 121 mg/dL (74-106); Potassium 3.6 mmol/L (3.5-5.1); Sodium 140 mmol/L (136-145); Total Protein 6.4 g/dL (6.4-8.2)
[2022-09-22] MEDS: ACETAMINOPHEN 1,000 MG/100 ML BTL 400 MG IVPB (19:30)
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
[2022-09-22] MEDS: Lidocaine/Epinephri/Tetracaine Topical Gel 3 ML (19:54)
== END 2022-09-22 20:47 | disposition home or self-care (01) ==
PROVIDERS: Emergency Provider Emergency Medicine; PCP Nurse Practitioner Family
DX: S01.01XA Laceration without foreign body of scalp, initial encounter (principal); S80.02XA Contusion of left knee, initial encounter; S80.01XA Contusion of right knee, initial encounter; S40.011A Contusion of right shoulder, initial encounter; S70.01XA Contusion of right hip, initial encounter; Z23 Encounter for immunization; V67.6XXA Passenger in heavy transport vehicle injured in collision with fixed or stationary object in traffic accident, initial encounter; Y92.410 Unspecified street and highway as the place of occurrence of the external cause
CPT/HCPCS: 12001; 74177; 80053; 90471; 96374; 99285; 70450; 71260; 72125; 85025; 99284; J0131; J3490

== ENCOUNTER 2022-11-16 19:55 | Outpatient (REF) | payer MEDICAID, SELFPAY ==
[2022-11-17 14:12] LABS: Chlamydia Result Negative (Negative); GC Result Negative (Negative)
== END 2022-11-16 19:56 | disposition home or self-care (01) ==
LOC: LBN 19:55
PROVIDERS: PCP Nurse Practitioner Family; Visit Provider Advanced Practice Midwife
DX: R10.2 Pelvic and perineal pain (principal); Z11.3 Encounter for screening for infections with a predominantly sexual mode of transmission
CPT/HCPCS: 87491; 87591

== ENCOUNTER 2022-12-09 14:53 | Outpatient (REF) | payer MEDICAID, SELFPAY | END 2022-12-09 14:54 | disposition home or self-care (01) | LOC: LBN 14:53 | PROVIDERS: PCP Nurse Practitioner Family; Visit Provider Nurse Practitioner Women's Health | DX: R10.2 Pelvic and perineal pain (principal) | CPT/HCPCS: 87480; 87510; 87660 ==

== ENCOUNTER 2023-03-10 07:51 | Emergency (ER) | payer MEDICAID, SELFPAY ==
[2023-03-10 07:53] VITALS: BP 119/74; PULSE 105; RESP 18; TEMP 36.8; O2SAT 98
[2023-03-10] MEDS: Tetracaine 0.5% 4 ML BTL OP (08:29)
[2023-03-10] MEDS: Fluorescein STRIPS 100/BOX 1 MG OP (08:30)
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
== END 2023-03-10 08:36 | disposition home or self-care (01) ==
PROVIDERS: Emergency Provider Physician Assistant; PCP Nurse Practitioner Family
DX: H01.002 Unspecified blepharitis right lower eyelid (principal); H10.022 Other mucopurulent conjunctivitis, left eye
CPT/HCPCS: 99283; 99284

== ENCOUNTER 2023-05-20 13:15 | Inpatient (IN) | payer MEDICAID, SELFPAY ==
[2023-05-20] VITALS (42 sets, daily range): BP systolic 100–164; BP diastolic 66–86; PULSE 72–129; RESP 0–33; TEMP 36.6; O2SAT 71–99
--- NOTE | 2023-05-20 13:30 | RT.EKG_ITS ---
APPROVED REPORT Exam: Resting ECG Reason for Exam: OD/Poison Patient Location: E HR:92 bpm ECG Measurements Heart Rate 92 AXIS NE 133 P 48 QRSd 89 QRS 13 QT 395 T 24 QTc 489 Conclusion Sinus rhythm...normal P axis, V-rate 60- 99
[2023-05-20] MEDS: Normal Saline 1,000 ML 1000 ML IV (13:55)
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
[2023-05-20 14:25] LABS: Abs Immature Grans 0.12 10^3/uL (0.0-0.06); Absolute Eosinophil Count 0.09 10^3/uL (0.0-0.7); Basophils % 0.3; Eosinophils % 0.6; HCT 37.2 % (36.0-46.0); HGB 12.4 g/dL (11.2-15.7); Immature Grans % 0.8; Lymphocytes % 11.6; MCH 33.6 pg (27.0-33.0); MCHC 33.3 % (32.0-36.0); MCV 101 fL (80-95); MPV 11.2 fL (8.0-11.0); Monocytes % 5.2; Neutrophils % 81.5; Platelet Count 247 10^3/uL (130-400); RBC 3.69 10^6/uL (3.93-5.22); RDW 12.7 % (11.7-14.6); RDW-SD 47.8 fL; WBC 15.53 10^3/uL (4.4-10.8)
[2023-05-20 14:34] LABS: Absolute Basophil Count 0.05 10^3/uL (0.0-0.2); Absolute Monocyte Count 0.81 10^3/uL (0.1-0.8); Absolute Neutrophil Count 12.66 10^3/uL (1.2-6.7)
[2023-05-20 14:41] LABS: ALT 12 U/L (14-59); AST 16 U/L (15-37); Albumin 3.3 g/dL (3.4-5.0); Alkaline Phosphatase 84 U/L (46-116); Anion Gap 10.1 mmol/L (3-11); BUN 4 mg/dL (7-18); Bilirubin, Total 0.3 mg/dL (0.2-1.0); CO2 24.9 mmol/L (21.0-32.0); Calcium 8.2 mg/dL (8.5-10.1); Chloride 103 mmol/L (98-107); Estimated GFR 79.68 (mL/min/1.73m2); Glucose 109 mg/dL (74-106); Magnesium 1.7 mg/dL (1.8-2.4); Potassium 3.5 mmol/L (3.5-5.1); Sodium 138 mmol/L (136-145); Total Protein 6.2 g/dL (6.4-8.2); Troponin I < 50 ng/L (<or=60)
[2023-05-20] MEDS: Naloxone 0.4 MG/ML VIAL (15:08)
--- NOTE | 2023-05-20 15:36 | DI.RAD_ITS ---
Exam(s) XR PORTABLE CHEST AP EXAM: XR PORTABLE CHEST AP CLINICAL HISTORY: left chest pain. TECHNIQUE: 2D digital imaging was performed. COMPARISON: CR XR CHEST 2V PA LATERAL from 11/17/2019 FINDINGS: Single AP portable view. Heart size is upper normal. The mediastinum is not widened. Lungs are clear. No infiltrates nor obvious pleural effusions. IMPRESSION: No acute pulmonary findings on this single AP portable view of the chest. DATA REPOSITORY: RADIATION DOSE DELIVERED:
[2023-05-20] MEDS: Naloxone 0.4 MG/ML VIAL IVP ×4 (15:41→18:30)
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
[2023-05-20] MEDS: Normal Saline Flush 10 ML SYR IVP (20:08)
--- NOTE | 2023-05-20 20:52 | NUR.NOTE ---
1645-Pt admitted from the ER and is alert and oriented but withdrawn but cooperative. Within 15 minutes, pt starts to say that when her mother gets out of work at 1800, she will come to the hospital and take her home and that she is leaving. Pt explained that this should not happen as she had an OD and it was a risk of respiratory depression to go home. 1715-Dr. Conrad called and notified of this. A dose of narcan given at 1720. At 1727, pt much more alert and awake. Came out of her room asking for her clothes as she stated that she needed to be downstairs as her mother would be there soon to pick her up. [place] [facility] informed us that she could go AMA but could not be allowed to do so without a responsible adult with her and that she could not have her clothes until her mother was physically in the unit. Pt became more and more agitated, become partially undressed and was wandering around ICU looking for her clothes and trying to go into kitchen and other pt rooms. Both nurses in the icu informed her that she could not do this and that she needed to go back to her room and put her farheen back on and she could have her clothes when her mother was here. Many attempts were made to get pt to stay at least for the night but she was insistent that she wanted to leave. Eventually pt called her mother on her cell phone and this nurse talked to her on the phone and she was not outside waiting for the discharge, she was still at work and did not know that her daughter had an OD and had been admitted to the hospital. She then came to the ICU and tried to talk her daughter into staying at least 1 night. Security had been called at 1742 and was here to try to get pt to go back to her room and to stop screaming. Pt started to roll her eyes again and sao2 was in the 80's and was given another dose of narcan at 1830. After attempts to get pt to calm down and stay in the hospital, Dr. Conrad came in at 1840 to talk with patient's mother and we all tried again to get her to stay but she refused. He called [facility] and asked what time they closed and if they had OTC narcan and sold sao2 probes. IID removed by pt. 1855-pt walked out with mother and nurse Sierra Aguilar RN
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
== END 2023-05-20 18:55 | disposition left against medical advice (07) | DRG 918 ==
LOC: ER 16:15 → ICU 16:41
PROVIDERS: Admitting Provider Internal Medicine; Emergency Provider Student in an Organized Health Care Education/Training Program; PCP Nurse Practitioner Family; Visit Provider Internal Medicine
DX: T40.3X1A Poisoning by methadone, accidental (unintentional), initial encounter (principal); F33.3 Major depressive disorder, recurrent, severe with psychotic symptoms; F50.2 Bulimia nervosa; R07.89 Other chest pain; R10.2 Pelvic and perineal pain; F43.10 Post-traumatic stress disorder, unspecified; K59.00 Constipation, unspecified; G43.009 Migraine without aura, not intractable, without status migrainosus; J45.909 Unspecified asthma, uncomplicated; F60.3 Borderline personality disorder; G62.9 Polyneuropathy, unspecified; K21.00 Gastro-esophageal reflux disease with esophagitis, without bleeding; E78.5 Hyperlipidemia, unspecified; F12.20 Cannabis dependence, uncomplicated; F17.290 Nicotine dependence, other tobacco product, uncomplicated; R40.0 Somnolence; R09.02 Hypoxemia; D72.829 Elevated white blood cell count, unspecified; D75.89 Other specified diseases of blood and blood-forming organs; B00.1 Herpesviral vesicular dermatitis; A60.9 Anogenital herpesviral infection, unspecified
CPT/HCPCS: 36415; 80053; 93005; 96361; 96374; 99291; 71045; 83735; 84484; 85025; 93010; J2310

== ENCOUNTER 2023-07-01 16:08 | Outpatient (REF) | payer MEDICAID, SELFPAY | END 2023-07-01 16:09 | disposition home or self-care (01) | LOC: LBN 16:08 | PROVIDERS: PCP Nurse Practitioner Family; Visit Provider Obstetrics & Gynecology | DX: R30.0 Dysuria (principal) | CPT/HCPCS: 87077; 87086; 87186 ==

== ENCOUNTER 2023-12-17 18:29 | Outpatient (REF) | payer MEDICAID, SELFPAY ==
--- NOTE | 2023-12-17 11:00 | PAPFT_PTH ---
PATIENT: Edna Melgar LOC: [facility] U#:[id number] AGE/SX: 28/F ROOM: RE12/17/[address]: Rosa M Elena : 1995 BED: DIS: 12/17/2023 SPEC #: [id number] RECD: 12/17/23 18:55 STATUS: LELIA ALBERTO #: [id number] DEBBIE: 12/17/23 11:[address]: Rosa M Elena DEPT: [facility] Cytology RECD BY: Anu Joel ENTERED: 12/17/23 18:55 SP TYPE: PAPFT OTHR DR: Marlee Alvarez APRN Tissues: 1 - CX/ENDOCX FOR PAP SMEARS Procedures: PAP THIN PREP/UVM Screening Comments: [id number] (CHLAMYDIA/GC)
[2023-12-18 09:19] LABS: Hepatitis C Ab w Rflx HCV PCR Negative (Negative)
[2023-12-18 09:36] LABS: HIV-1/2 Ag & Ab Screen Negative (Negative)
[2023-12-20 10:51] LABS: Syphilis Serology (RPR) Negative (Negative)
[2023-12-23 14:51] LABS: Chlamydia Result Negative (Negative); GC Result Negative (Negative)
== END 2023-12-17 18:30 | disposition home or self-care (01) ==
LOC: NCHCN 18:29
PROVIDERS: PCP Nurse Practitioner Family; Visit Provider Family Medicine
DX: Z12.4 Encounter for screening for malignant neoplasm of cervix (principal); Z11.59 Encounter for screening for other viral diseases; N89.8 Other specified noninflammatory disorders of vagina
CPT/HCPCS: 86803; 87389; 87491; 87591; 88142; 86592; 87480; 87510; 87660

== ENCOUNTER 2024-09-22 15:31 | Outpatient (REF) | payer MEDICAID, SELFPAY ==
--- OUTSIDE RECORDS SUMMARY | 2024-09-22 15:33 | XMS_ITS | Encounter Summary ---
Author Organization [facility] Address [address] [place] [address] Care Team Providers Care Golf Stud Riveter Name Role Phone Marlee Alvarez NP Primary Care Provider [phone] [facility] Internal Medicine, [facility] Primary Care [place] Encounter Details Date Type Department Care Team (Late st Contact Info) Description 12/17/2023 Lab Requisition [facility] Pathology & Laboratory Medicine - [facility] [address], [place] [address] Outr Resulting Lab, Provider Social History Tobacco Use Types Packs/Day Years Used Date Smoking Tobacco: Never Assessed Interpersonal Safety Answer Date Record ed Physically Hurt Never 04/14/2020 Verbally Threaten Not on file 04/14/2020 Comments Unknown Sex and Gender Information Value Date Recorded Sex Assigned at Not on file Legal Sex Female 20:05 EDT Gender Identity Not on file Sexual Orientation Not on file documented as of this encounter Plan of Treatment Not on file documented as of this encounter Procedures Procedure Name Priority Date/Time Associated Diagnosis Comments SYPHILIS SEROLOGY Routine 12/17/2023 11: 00 EDT HEPATITIS C AB W REFLEX TO HCV RNA BY PCR Routine 12/17/2023 11:00 EDT documented in this encounter Results * SYPHILIS SEROLOGY (12/17/2023 11:00 EDT) Syphilis Serology Negative Negative 12/20/2023 10:47 EDT [facility] Blood VENOUS BLOOD / Unknown 12/17/2023 11:00 EDT 12/17/2023 21:41 EDT us Provider Outr Resulting Lab IMMUNOLOGY AND SEROL OGY ORDERABLES Final Result Performing Organization Address City/[facility]/ZIP Co de Phone Number [facility] [address] [place], [place] [address] * HEPATITIS C AB W REFLEX TO HCV RNA BY PCR (12/17/2023 11:00 EDT) Hep C Antibody Negative Negative 12/18/2023 9:14 EDT [facility] Blood VENOUS BLOOD / Unknown 12/17/2023 11:00 EDT 12/17/2023 21:41 EDT us Provider Outr Resulting Lab CHEMISTRY & BLOOD GA S ORDERABLES Final Result Performing Organization Address City/[facility] Co de Phone Number [facility] [address] [place] [address] documented in this encounter Visit Diagnoses Not on filedocumented in this encounter Care Teams Golf Stud Riveter Relationship Specialty Start Date End Date Marlee Alvarez NP PCP - General 08/27/20 02/01/24 [facility] Internal Medicine, [facility] [place] [address] PCP - General 02/02/24 documented as of this encounter
--- OUTSIDE RECORDS SUMMARY | 2024-09-22 15:33 | XMS_ITS | Clinical Summary ---
Author Organization [facility] Address [address] [place] [address] Care Team Providers Care Railroad Car Painter Name Role Phone [facility] Internal Medicine, Primary Care [place] Social History Tobacco Use Types Packs/Day Years Used Date Smoking Tobacco: Never Assessed Interpersonal Safety Answer Date Record ed Physically Hurt Never 04/14/2020 Verbally Threaten Not on file 04/14/2020 Comments Unknown Sex and Gender Information Value Date Recorded Sex Assigned at Not on file Legal Sex Female 20:05 EDT Gender Identity Not on file Sexual Orientation Not on file Plan of Treatment Health Maintenance Due Date Last Done Comments Hepatitis B Vaccine (1 of 3 - 19+ 3-dose series) 06/22 COVID-19 Vaccine ( season) 2024 Hepatitis C Screen Completed 12/17/2023 Procedures Procedure Name Priority Date/Time Associated Diagnosis Comments HEPATITIS C AB W REFLEX TO HCV RNA BY PCR Routine 12/17/2023 11:00 EDT from Last 3 Months or Most Recently Relevant to Health Maintenance Results * HEPATITIS C AB W REFLEX TO HCV RNA BY PCR (12/17/2023 11:00 EDT) Hep C Antibody Negative Negative 12/18/2023 9:14 EDT [facility] Blood VENOUS BLOOD / Unknown 12/17/2023 11:00 EDT 12/17/2023 21:41 EDT us Provider Outr Resulting Lab CHEMISTRY & BLOOD GA S ORDERABLES Final Result [facility] [address] [place] [address] from Last 3 Months or Most Recently Relevant to Health Maintenance Insurance MEDICAID [place] Care Teams Railroad Car Painter Relationship Specialty Start Date End Date [facility] Internal Medicine, [place] [address] [place] [address] PCP - General 02/02/24
--- OUTSIDE RECORDS SUMMARY | 2024-09-22 15:33 | XMS_ITS | Encounter Summary ---
Author Organization [facility] Address [address] [place] [address] Care Team Providers Care Referral Coordinator Name Role Phone Marlee Alvarez NP Primary Care Provider [phone] [facility] Internal Medicine, [place] Primary Care [place] Encounter Details Date Type Department Care Team (Late st Contact Info) Description 01/28/2024 Lab Requisition [facility] Pathology & Laboratory Medicine - [address] [address] Elyse Black MD [address] [place] [phone] Encounter for other general examination Social History Tobacco Use Types Packs/Day Years [...] Procedure Name Priority Date/Time Associated Diagnosis Comments SURGICAL PATHOLOGY Today 01/28/2024 11 :40 EDT Encounter for other general examination documented in this encounter Results * SURGICAL PATHOLOGY (01/28/2024 11:40 EDT) Note to Patient The following pathology results have been interpreted by your pathologist and may be available to you before your health provider has had the opportunity to review them. Please allow time for your provider to receive these results and explore management options, if applicable. 02/02/2024 9:11 [facility] Final Diagnosis A. ENDOCERVIX, CURETTAGE: - Specimen did not survive processing. Credit issued. 02/02/2024 9:11 [facility] Attestation There was significant resident/fellow involvement in the diagnostic evaluation of this case. By the signature below, the attending physician certifies that they have personally conducted a gross and/or microscopic examination of the described specimens and rendered or confirmed the above diagnosis. 02/02/2024 9:11 [facility] at 0911 Clinical History ASC-H benign appearing colp 02/02/2024 9:11 [facility] Gross Description A. Received in formalin labelled with proper patient identification (initials W, A) and cervix ECC is a scant amount of translucent soft tissue less than 0.1 x 0.1 x 0.1 cm. The specimen is filtered and submitted entirely in A1. Note: The specimen may not survive processing. FAISAL SNOWDEN(ASCP) 01/31/2024 8:23 02/02/2024 9:11 [facility] Resident/Teddy w: Saida Fitch MD 02/02/2024 9:11 [facility] Performing Lab [facility] 02/02/2024 9:11 [facility] Scanned Images 02/02/2024 9:11 [facility] Tissue ENDOCERVICAL STRUCTURE / Unknown 01/28/2024 11:40 EDT 01/28/2024 17:37 EDT us Elyse Black MD PATHOLOGY ORDERABLES Final R esult [facility] [address] [place] [address] documented in this encounter Visit Diagnoses Diagnosis Encounter for other general examination documented in this encounter Care Teams Referral Coordinator Relationship Specialty Start Date End Date Marlee Alvarez, TURNTABLE OPERATOR PCP - General 08/27/20 02/01/24 [facility] Internal Medicine, [place] [address] [place] [address] PCP - General 02/02/24 documented as of this encounter
--- OUTSIDE RECORDS SUMMARY | 2024-09-22 15:33 | XMS_ITS | Encounter Summary ---
Author Organization [facility] Address [address] [place] [address] Care Team Providers Care Salon Designer Name Role Phone Marlee Alvarez NP Primary Care Provider [phone] [facility] Internal Medicine, [place] Primary Care [place] Encounter Details Date Type Department Care Team (Late st Contact Info) Description 12/17/2023 Lab Requisition [facility] Pathology & Laboratory Medicine - [facility] [address] [place] [address] Outr Resulting Lab, Provider Social History Tobacco [...] Procedure Name Priority Date/Time Associated Diagnosis Comments HIV 1/2 ANTIGEN AND ANTIBODY, 4TH GENERATION Routine 12/17/2023 11:00 EDT documented in this encounter Results * HIV 1/2 ANTIGEN AND ANTIBODY, 4TH GENERATION (12/17/2023 11:00 EDT) HIV 1 and 2 Antibody/p24 Antigen, 4th Generation Negative Negative 12/18/2023 9:31 EDT [facility] Comment:If acute HIV-1 infec tion is suspected in a high risk patient, submit plasma specimen for HIV-1 RNA quantitation test. Blood VENOUS BLOOD / Unknown 12/17/2023 11:00 EDT 12/17/2023 21:41 EDT Narrative [facility] - 12/18/2023 9:31 EDT Fourth Generation assay performed on the Siemens SocietyOneaur XPT. us Provider Outr Resulting Lab IMMUNOLOGY AND SEROL OGY ORDERABLES Final Result [facility] [address] [place] [address] documented in this encounter Visit Diagnoses Not on filedocumented in this encounter Care Teams Salon Designer Relationship Specialty Start Date End Date Marlee Alvarez NP PCP - General 08/27/20 02/01/24 [facility] Internal Medicine, [address] [place] [address] PCP - General 02/02/24 documented as of this encounter
--- OUTSIDE RECORDS SUMMARY | 2024-09-22 15:33 | XMS_ITS | Encounter Summary ---
Author Organization [facility] Address [address] [place] [address] Care Team Providers Care Paraeducator Name Role Phone Marlee Alvarez NP Primary Care Provider [phone] [facility] Internal Medicine, [place] Primary Care [place]vi [place] Encounter Details Date Type Department Care Team (Late st Contact Info) Description 12/22/2023 Lab Requisition [facility] Pathology & Laboratory Medicine - [facility] [address] [place], [place] [address] Outr Resulting Lab, Provider Social History Tobacco [...] Procedure Name Priority Date/Time Associated Diagnosis Comments CHLAMYDIA/N. GONORRHOEAE AMPLIFIED NUCLEIC ACID, THINPREP Today 12/17/2023 11:00 EDT documented in this encounter Results * CHLAMYDIA/N. GONORRHOEAE AMPLIFIED RNA, THINPREP (12/17/2023 11:00 EDT) Neisseria gonorrhoeae Result Negative Negative 12/23/2023 14:45 EDT [facility] Chlamydia trachomatis Result Negative Negative 12/23/2023 14:45 EDT [facility] Pap Test CERVIX UTERI STRUCTURE / Unknown 12/17/2023 11:00 EDT 12/23/2023 9:38 EDT us Provider Outr Resulting Lab MICROBIOLOGY - GENER AL ORDERABLES Final Result [facility] [address] [place], [place] [id number] documented in this encounter Visit Diagnoses Not on filedocumented in this encounter Care Teams Paraeducator Relationship Specialty Start Date End Date Marlee Alvarez, TIRE CHANGER AIRCRAFT PCP - General 08/27/20 02/01/24 [facility] Internal Medicine, [place] [address] [place] [address] PCP - General 02/02/24 documented as of this encounter
--- OUTSIDE RECORDS SUMMARY | 2024-09-22 15:33 | XMS_ITS | Encounter Summary ---
Author Organization [facility] Address [address] [place] [address] Care Team Providers Care Leader Assembler Name Role Phone Unknown, Provider Primary Care Provider Marlee Avila TRAINING AND DEVELOPMENT ASSISTANT Primary Care Provider [phone] [facility] Internal Medicine, [place] Primary Care [place] Encounter Details Date Type Department Care Team (Late st Contact Info) Description 03/14/2020 Lab Requisition [facility] Pathology & Laboratory Medicine - [facility] [address], [place] [address] Outr Resulting Lab, Provider Social History Tobacco Use Types Packs/Day Years Used Date Smoking Tobacco: Never Assessed Comments Unknown Sex and Gender Information Value Date Recorded Sex Assigned at Not on file Legal Sex Female 20:05 EDT Gender Identity Not on file Sexual Orientation Not on file documented as of this encounter Plan of Treatment Not on file documented as of this encounter Procedures Procedure Name Priority Date/Time Associated Diagnosis Comments CHLAMYDIA/N. GONORRHOEAE AMPLIFIED NUCLEIC ACID Routine 03/14/2020 15:00 EDT documented in this encounter Results * CHLAMYDIA/N. GONORRHOEAE AMPLIFIED RNA (03/14/2020 15:00 EDT) Neisseria gonorrhoeae Result Negative Negative 03/15/2020 14:[address] [facility] Chlamydia trachomatis Result Negative Negative 03/15/2020 14:[address] [facility] Swab ENTIRE ENDOCERVIX / Unknown 03/14/2020 15:00 EDT 03/14/2020 21:00 EDT us Provider Outr Resulting Lab MICROBIOLOGY - GENER AL ORDERABLES Final Result [facility] [address] [place] [address] documented in this encounter Visit Diagnoses Not on filedocumented in this encounter Care Teams Leader Assembler Relationship Specialty Start Date End Date Unknown, Provider, PCP - General 07/06/17 08/26/20 Marlee Alvarez, TRAINING AND DEVELOPMENT ASSISTANT PCP - General 08/27/20 02/01/24 [facility] Internal Medicine, [place] [address] [place] [address] PCP - General 02/02/24 documented as of this encounter
--- OUTSIDE RECORDS SUMMARY | 2024-09-22 15:33 | XMS_ITS | Encounter Summary ---
Author Organization [facility] Address [address] [place] [address] Care Team Providers Care Bacon Stringer Name Role Phone Unknown, Provider Primary Care Provider Unava ilable Encounter Details Date Type Department Care Team (Late st Contact Info) Description 11/18/2018 Results Only [facility] [phone] Andre Leija, TUMBLER OPERATOR [address] [place] [address] Social History Tobacco Use Types Packs/Day Years [...] Procedure Name Priority Date/Time Associated Diagnosis Comments PAP TEST- RESULT ONLY Routine 11/18/2018 0:00 EST documented in this encounter Results * PAP TEST- RESULT ONLY (11/18/2018 0:00 EST) Pathology Report: CYTOPATHOLOGY REPORT Reports generated via electronic interface contain original data; however they are lacking the format of the original report. Caution should be taken when reading/interpreti ng unformatted reports. Name: ? EDNA LOGAN ? Accession #: ? [id number] : ? 1995 (Age: 23) ??F ?Collect Date: ? 11/18/2018 Location: ? [facility] ? Receive Date: ? 11/21/2018 Provider: ?ANDRE LEIJA TUMBLER OPERATOR Copy to: ?EMMA BALDERRAMA PAINT POURER ? Specimen/Source: ?Pap Test, Cervix, ThinPrep Imaging System with manual evaluation Last Menstrual Period: ? 10/22/17 ? SPECIMEN ADEQUACY ? Satisfactory for Evaluation - transformation zone component present GENERAL CATEGORIZATION ? Negative for Intraepithelial Lesion or Malignancy INTERPRETATION ? Shift in bautista present suggestive of bacterial vaginosis. ? Document reviewed and electronically signed by: ? Kori Mcdowell, CT(ASCP) ? Report Date: ??11/22/2018 13:26 End of Report [facility] 11/18/2018 11/21/2018 us Andre Leija APRN PATHOLOGY ORDERABLES Candy vizcarra Result [facility] [address] [place] [address] documented in this encounter Visit Diagnoses Not on filedocumented in this encounter Care Teams Bacon Stringer Relationship Specialty Start Date End Date Unknown, Provider, PCP - General 07/06/17 08/26/20 documented as of this encounter
--- OUTSIDE RECORDS SUMMARY | 2024-09-22 15:33 | XMS_ITS | Encounter Summary ---
Author Organization [facility] Address [address] [place] [address] Care Team Providers Care Gill Net Stringer Name Role Phone Marlee Alvarez NP Primary Care Provider [phone] [facility] Internal Medicine, [place] Primary Care Provi [place] Encounter Details Date Type Department Care Team (Late st Contact Info) Description 04/08/2022 Lab Requisition [facility] Pathology & Laboratory Medicine - [facility] [address] [place], [place] [address] Outr Resulting Lab, Provider Social History Tobacco [...] Comments CHLAMYDIA/N. GONORRHOEAE AMPLIFIED NUCLEIC ACID Routine 04/08/2022 9:45 EDT documented in this encounter Results * (ABNORMAL) CHLAMYDIA/N. GONORRHOEAE AMPLIFIED RNA (04/08/2022 9:45 EDT) Neisseria gonorrhoeae Result Negative Negative 04/09/2022 14:52 EDT [facility] Chlamydia trachomatis Result Positive(A) Negative 04/09/2022 14:52 EDT [facility] Swab ENTIRE WALL OF CERVIX / Unknown 04/08/2022 9:45 EDT 04/08/2022 21:30 EDT us Provider Outr Resulting Lab MICROBIOLOGY - GENER AL ORDERABLES Final Result Performing Organization Address City/State/[facility] Co de Phone Number [facility] [address] [place] [address] documented in this encounter Visit Diagnoses Not on filedocumented in this encounter Care Teams Gill Net Stringer Relationship Specialty Start Date End Date Marlee Alvarez, FISH TECHNOLOGIST PCP - General 08/27/20 02/01/24 [facility], [place] [address] [place] [address] PCP - General 02/02/24 documented as of this encounter
--- OUTSIDE RECORDS SUMMARY | 2024-09-22 15:33 | XMS_ITS | Encounter Summary ---
Author Organization [facility] Address [address] [place] [address] Care Team Providers Care Fmd Teacher Name Role Phone Marlee Alvarez NP Primary Care Provider [phone] [facility] Internal Medicine, [place] Primary Care Provi [place] Encounter Details Date Type Department Care Team (Late st Contact Info) Description 09/05/2022 Lab Requisition [facility] Pathology & Laboratory Medicine - [address] [id number] Outr Resulting Lab, Provider Social History Tobacco [...] Procedure Name Priority Date/Time Associated Diagnosis Comments HSV (HERPES SIMPLEX VIRUS) MOLECULAR DETECTION, PCR Routine 09/04/2022 10:00 EST documented in this encounter Results * HSV (HERPES SIMPLEX VIRUS) MOLECULAR DETECTION, PCR (09/04/2022 10:00 EST) Herpes Simplex Virus Molecular Detection 1, PCR Negative Negative 09/08/2022 16:50 EST [facility] Herpes Simplex Virus Molecular Detection 2, PCR Negative Negative 09/08/2022 16:50 EST [facility] Swab SPECIMEN FROM LABIA OBTAINED BY BIOPSY / Unknown 09/04/2022 10:00 EST 09/07/2022 16:47 EST us Provider Outr Resulting Lab MICROBIOLOGY - GENER AL ORDERABLES Final Result Performing Organization Address City/State/[facility] Co de Phone Number [facility] [address] [place] [address] documented in this encounter Visit Diagnoses Not on filedocumented in this encounter Care Teams Fmd Teacher Relationship Specialty Start Date End Date Marlee Alvarez, FILM REPLACEMENT ORDERER PCP - General 08/27/20 02/01/24 [facility] Internal Medicine, [place] [address] [place] [address] PCP - General 02/02/24 documented as of this encounter
--- OUTSIDE RECORDS SUMMARY | 2024-09-22 15:33 | XMS_ITS | Encounter Summary ---
Author Organization [facility] Address [address] [place] [address] Care Team Providers Care Urban And Regional Planner Name Role Phone Marlee Alvarez NP Primary Care Provider [phone] [facility] Internal Medicine, [place] Primary Care Provi [place] Encounter Details Date Type Department Care Team (Late st Contact Info) Description 06/23/2022 Lab Requisition [facility] Pathology & Laboratory Medicine - [facility] [address] [place], [place] [address] Outr Resulting Lab, Provider Social History Tobacco [...] Comments CHLAMYDIA/N. GONORRHOEAE AMPLIFIED NUCLEIC ACID Routine 2022 16:10 EDT documented in this encounter Results * CHLAMYDIA/N. GONORRHOEAE AMPLIFIED RNA (2022 16:10 EDT) Neisseria gonorrhoeae Result Negative Negative 06/24/2022 16:55 EDT [facility] Chlamydia trachomatis Result Negative Negative 06/24/2022 16:55 EDT [facility] Swab ENTIRE WALL OF CERVIX / Unknown 2022 16:10 EDT 06/23/2022 16:50 EDT us Provider Outr Resulting Lab MICROBIOLOGY - GENER AL ORDERABLES Final Result [facility] [address] [place] [address] documented in this encounter Visit Diagnoses Not on filedocumented in this encounter Care Teams Urban And Regional Planner Relationship Specialty Start Date End Date Marlee Alvarez, ALYSSA PCP - General 08/27/20 02/01/24 [facility] Internal [facility], [place] [address] [place] [address] PCP - General 02/02/24 documented as of this encounter
--- OUTSIDE RECORDS SUMMARY | 2024-09-22 15:33 | XMS_ITS | Referral Summary ---
Author Organization [facility] Address [address] [place] [address] Care Team Providers Care Direct Mail Clerk Name Role Phone [facility] Internal Medicine, Primary Care Provi [place] [...] Orientation Not on file Plan of Treatment Not on file Procedures Procedure Name Priority Date/Time Associated Diagnosis Comments HEPATITIS C AB W REFLEX TO HCV RNA BY PCR Routine 12/17/2023 11:00 EDT from Last 3 Months or Most Recently Relevant to Health Maintenance Results * HEPATITIS C AB W REFLEX TO HCV RNA BY PCR (12/17/2023 11:00 EDT) Hep C Antibody Negative Negative 12/18/2023 9:14 EDT [facility] Blood VENOUS BLOOD / Unknown 12/17/2023 11:00 EDT 12/17/2023 21:41 EDT us Provider Outr Resulting Lab CHEMISTRY & BLOOD GA S ORDERABLES Final Result [facility] [address] [place], [place] [address] from Last 3 Months or Most Recently Relevant to Health Maintenance Insurance MEDICAID [place] Care Teams Direct Mail Clerk Relationship Specialty Start Date End Date [facility], [place] [address] [place] [address] PCP - General 02/02/24
--- OUTSIDE RECORDS SUMMARY | 2024-09-22 15:33 | XMS_ITS | Encounter Summary ---
Author Organization [facility] Address [address] [place] [address] Care Team Providers Care Mba Intern Name Role Phone Marlee Alvarez NP Primary Care Provider [facility] Internal Medicine, [place] Primary Care Provi [place] Encounter Details Date Type Department Care Team (Late st Contact Info) Description 11/16/2022 Lab Requisition [facility] Pathology & Laboratory Medicine - [facility] [address] [place], [place] [address] Outr Resulting Lab, Provider Social History Tobacco [...] Comments CHLAMYDIA/N. GONORRHOEAE AMPLIFIED NUCLEIC ACID Routine 11/16/2022 10:30 EST documented in this encounter Results * CHLAMYDIA/N. GONORRHOEAE AMPLIFIED RNA (11/16/2022 10:30 EST) Neisseria gonorrhoeae Result Negative Negative 11/17/2022 14:07 EST [facility] Chlamydia trachomatis Result Negative Negative 11/17/2022 14:07 EST [facility] Swab ENTIRE ENDOCERVIX / Unknown 11/16/2022 10:30 EST 11/16/2022 22:06 EST us Provider Outr Resulting Lab MICROBIOLOGY - GENER AL ORDERABLES Final Result [facility] [address] [place] [address] documented in this encounter Visit Diagnoses Not on filedocumented in this encounter Care Teams Mba Intern Relationship Specialty Start Date End Date Marlee Alvarez, CALCULATOR OPERATOR PCP - General 08/27/20 02/01/24 [facility] Internal Medicine, [place] [address] [place] [address] PCP - General 02/02/24 documented as of this encounter
--- OUTSIDE RECORDS SUMMARY | 2024-09-22 15:33 | XMS_ITS | Encounter Summary ---
Author Organization [facility] Address [address] [place] [address] Care Team Providers Care Regulatory Affairs Internship Name Role Phone Marlee Alvarez NP Primary Care Provider [phone] [facility] Internal Medicine, [place] Primary Care Provi [place] Encounter Details Date Type Department Care Team (Late st Contact Info) Description 09/23/2021 Lab Requisition [facility] Pathology & Laboratory Medicine - [address] [address] Malathi [place], [facility] [address] [place] [phone] Encounter for other general examination Social [...] Name Priority Date/Time Associated Diagnosis Comments PAP TEST Today 09/22/2021 10:30 EST Encounter for other general examination documented in this encounter Results * PAP TEST (09/22/2021 10:30 EST) Specimens A. Cervix and/or Endocervix , ThinPrep Imaging System with Manual Evaluation 09/30/2021 11:05 [facility] Specimen Adequacy Satisfactory for Evaluation - transformation zone component present 09/30/2021 11:05 [facility] General Categorization Negative for intraepithelial lesion or malignancy 09/30/2021 11:05 [facility] Descriptive Diagnosis Trichomonas vaginalis present. 09/30/2021 11:05 [facility] Attestation . 09/30/2021 11:05 [facility] at [address]5 Clinical History See below 09/30/19 11:05 [facility] Performing Lab [facility] 09/30/2021 11:05 [facility] Scanned Images 09/30/2021 11:05 [facility] Papanicolaou smear specimen (specimen) CERVIX UTERI STRUCTURE / Unknown 09/22/2021 10:30 EST 09/23/2021 9:16 EST us Malathi [place] DUST COLLECTOR ORE CRUSHING PATHOLOGY ORDERABLES Final R esult [facility] [address] [place] [address] documented in this encounter Visit Diagnoses Diagnosis Encounter for other general examination documented in this encounter Care Teams Regulatory Affairs Internship Relationship Specialty Start Date End Date Marlee Alvarez NP PCP - General 08/27/20 02/01/24 [facility] Internal Medicine, [place] [address] [place] [address] PCP - General 02/02/24 documented as of this encounter
--- OUTSIDE RECORDS SUMMARY | 2024-09-22 15:33 | XMS_ITS | Encounter Summary ---
Author Organization [facility] Address [address] [place] [address] Care Team Providers Care Change Management Coordinator Name Role Phone Marlee Alvarez NP Primary Care Provider [phone] [facility] Internal Medicine, [place] Primary Care Provi [place] Encounter Details Date Type Department Care Team (Late st Contact Info) Description 12/27/2020 Lab Requisition [facility] Pathology & Laboratory Medicine - [facility] [address] [place] [address] Outr Resulting Lab, Provider Social History Tobacco [...] Comments CHLAMYDIA/N. GONORRHOEAE AMPLIFIED NUCLEIC ACID Routine 12/27/2020 11:05 EDT documented in this encounter Results * CHLAMYDIA/N. GONORRHOEAE AMPLIFIED RNA (12/27/2020 11:05 EDT) Neisseria gonorrhoeae Result Negative Negative 12/30/2020 15:14 EDT [facility] Chlamydia trachomatis Result Negative Negative 12/30/2020 15:14 EDT [facility] Swab ENTIRE ENDOCERVIX / Unknown 12/27/2020 11:05 EDT 12/27/2020 21:55 EDT us Provider Outr Resulting Lab MICROBIOLOGY - GENER AL ORDERABLES Final Result [facility] [address] [place] [address] documented in this encounter Visit Diagnoses Not on filedocumented in this encounter Care Teams Change Management Coordinator Relationship Specialty Start Date End Date Marlee Alvarez, ALYSSA PCP - General 08/27/20 02/01/24 [facility] Internal Medicine, [place] [address] [place] [address] PCP - General 02/02/24 documented as of this encounter
--- OUTSIDE RECORDS SUMMARY | 2024-09-22 15:33 | XMS_ITS | Encounter Summary ---
Author Organization [facility] Address [address] [place] [address] Care Team Providers Care Grape Cutter Name Role Phone Unknown, Provider Primary Care Provider Marlee Avila NP Primary Care Provider [phone] [facility] Internal Medicine, [place] Primary Care Provi [place] Encounter Details Date Type Department Care Team (Late st Contact Info) Description 08/24/2019 Lab Requisition [facility] Pathology & Laboratory Medicine - [facility] [address] [place] [address] Unknown, Provider, Social History Tobacco Use Types Packs/Day Years [...] Comments CHLAMYDIA/N. GONORRHOEAE AMPLIFIED NUCLEIC ACID Routine 08/23/2019 14:10 EST documented in this encounter Results * CHLAMYDIA/N. GONORRHOEAE AMPLIFIED RNA (08/23/2019 14:10 EST) Neisseria gonorrhoeae Result Negative Negative 08/25/2019 15:10 EST [facility] Chlamydia trachomatis Result Negative Negative 08/25/2019 15:10 EST [facility] Swab SPECIMEN FROM UTERINE CERVIX / Unknown Swab / Unknown 08/23/2019 14:10 EST 08/24/2019 17:06 EST us Provider Unknown MICROBIOLOGY - GENERAL ORDER MARIE Final Result [facility] [address] [place] [address] documented in this encounter Visit Diagnoses Not on filedocumented in this encounter Care Teams Grape Cutter Relationship Specialty Start Date End Date Unknown, Provider, PCP - General 07/06/17 08/26/20 Marlee Alvarez, Z OS MAINFRAME SYSTEMS PROGRAMMER PCP - General 08/27/20 02/01/24 [facility] Internal Medicine, [place] [address] [place] [address] PCP - General 02/02/24 documented as of this encounter
--- OUTSIDE RECORDS SUMMARY | 2024-09-22 15:33 | XMS_ITS | Continuity of Care Document ---
Author Organization [facility] Address [address] [place] [address] Encounter LTT[facility] FIN NBR [id number] Date(s): 11/29/22 - 12/01/[address] [id number] Encounter Diagnosis Renal insufficiency(Discharge Diagnosis) - 11/29/22 Cocaine abuse(Discharge Diagnosis) - 11/29/22 Bipolar disorder(Discharge Diagnosis) - 11/29/22 Substance abuse(Discharge Diagnosis) - 11/29/22 Suicidal ideation(Discharge Diagnosis) - 11/29/22 Discharge Disposition: Transfer to Higher Level of Care Attending Physician: Alcon Jacobo MD Admitting Physician: Alcon Jacobo MD Allergies, Adverse Reactions, Alerts Substance Reaction Severity Status codeine 1 Unknown Active penicillin 2 Unknown Active sulfa drugs 3 Unknown Active Wellbutrin 4 Unknown Active Latex 5 Unknown Active 1dry heaving 2rash 3rash 4pinpoint rash 5burning rash Assessment and Plan Diagnostic Tests Pending * Sodium Level Urine 11/29/22 * Creatinine Urine 11/29/22 Functional Status 12/01/22 Personal Care Provided Shower 11/30/22 Breakfast Percent 100 1 11/29/22 Living Environment No Living Environmen t Information Available Lives In [facility] home Lives With Parent(s)/Guardian Living Situation Home independently 11/29/22 Family Member Travel History No recent t ravel Recent Travel History No recent travel Other exposure to Infectious Disease Non e 1Result Comment: mixed veggies breakfast burrito Medications cetirizine 10 mg oral tablet 10 mg = 1 tab, Oral, every morning, 0 Refill(s) Start Date: 11/29/22 Status: Ordered clonazePAM 1.5 mg =, Oral, TID, takes 1 mg and 0.5 mg tabs Start Date: 11/30/22 Status: Ordered cyproheptadine 4 mg oral tablet 8 mg = 2 tab, Oral, BID, 0 Refill(s), 12/09/22 8:59:00 EDT Start Date: 11/29/22 Stop Date: 12/09/22 Status: Ordered Flax Seed Oil oral capsule 1,200 mg, Oral, Daily, 0 Refill(s) Start Date: 11/29/22 Status: Ordered gabapentin 800 mg oral tablet 800 mg = 1 tab, Oral, TID, 0 Refill(s) Start Date: 11/29/22 Status: Ordered Latuda 200 mg =, Oral, With Evening Meal, takes 120 mg and 80 mg tabs Start Date: 11/30/22 Status: Ordered magnesium oxide 250 mg oral tablet 250 mg = 1 tab, Oral, every evening, 0 Refill(s) Start Date: 11/29/22 Status: Ordered Melatonin 3 mg oral tablet 6 mg 2 tab, Oral, every night at bedtime Start Date: 11/29/22 Status: Ordered montelukast 10 mg oral tablet 10 mg = 1 tab, Oral, every evening, 0 Refill(s) Start Date: 11/29/22 Status: Ordered multivitamin adult, oral tablet 1 tab, Oral, Daily, Alive! multivitamin Start Date: 11/30/22 Status: Ordered prazosin 1 mg oral capsule 2 mg =, Oral, every night at bedtime Start Date: 11/29/22 Status: Ordered traZODone 100 mg oral tablet 300 mg =, Oral, every night at bedtime, 0 Refill(s) Start Date: 11/29/22 Status: Ordered valACYclovir 1 g oral tablet 1 g = 1 tab, Oral, every morning, 0 Refill(s) Start Date: 11/29/22 Status: Ordered Mental Status 11/29/22 Eye Opening Response [place] Spontaneous ly Best Verbal Response [place] Oriented Best Motor Response Renny Obeys comman ds Renny Coma Score 15 Problem List No Known Problems Results Laboratory List Name Date Potassium Level 12/01/22 Automated Diff 12/01/22 Basic Metabolic Panel (BMP) 12/01/22 CBC w/ Diff 12/01/22 Lactic Acid 12/01/22 Magnesium Level 12/01/22 Phosphorus Level 12/01/22 CBC w/ Diff 11/30/22 Automated Diff 11/30/22 Basic Metabolic Panel (BMP) 11/30/22 Lactic Acid 11/30/22 Magnesium Level 11/30/22 Phosphorus Level 11/30/22 Basic Metabolic Panel (BMP) 11/29/22 Blood Gas Venous 11/29/22 Creatine Kinase 11/29/22 Creatine Kinase 11/29/22 Creatine Kinase 11/29/22 Magnesium Level 11/29/22 Phosphorus Level 11/29/22 SARS-CoV-2 (COVID-19) PCR (GeneXpert) Acetaminophen Level 11/29/22 Alcohol Lvl (ETOH Level) 11/29/22 CBC w/ Diff 11/29/22 Comprehensive Metabolic Panel (CMP) 11/29 Drug Screen Urine 11/29/22 Free T4 11/29/22 HIV Ag/Ab Combo 1/2 11/29/22 Test Urine Qual 11/29/22 Salicylate Level 11/29/22 TSH w/ Rflx to Free T4 11/29/22 Urinalysis Microscopic 11/29/22 Urinalysis with Micro if Indicated and C ulture if Indicated 11/29/22 Automated Diff 11/29/22 Most recent to oldest [Reference Range]: 1 2 3 WBC [4.8-10.8 K/mcL] 8.7 K/mcL (12/01/22 6:30 AM) 7.1 K/mcL (11/30/22 3:17 PM) 11.5 K/mcL *HI* (11/29/22 1:21 PM) RBC [4.20-5.40 Million/mcL] 3.34 Million /mcL *LOW* (12/01/22 6:30 AM) 3.26 Million/mcL *LOW* (11/30/22 3:17 PM) 3.84 Million/mcL *LOW* (11/29/22 1:21 PM) Neutro Auto [42.2-75.2 %] 68.6 % (12/01/22 6:30 AM) 66.9 % (11/30/22 3:17 PM) 80.9 % *HI* (11/29/22 1:21 PM) Lymph Auto [20.5-51.1 %] 20.4 % *LOW* (12/01/22 6:30 AM) 21.3 % (11/30/22 3:17 PM) 11.1 % *LOW* (11/29/22 1: PM) Terry Auto [1.7-9.3 %] 8.0 % (12/01/22 6:30 AM) 9.6 % *HI* (11/30/22 3:17 PM) 7.0 % (11/29/22 1:21 PM) Basophil Auto [0.0-0.8 %] 0.3 % (12/01/22 6:30 AM) 0.6 % (11/30/22 3:17 PM) 0.3 % (11/29/22 1:21 PM) BUN [8-26 mg/dL] 7 mg/dL *LOW* (12/01/22 6:30 AM) 11 mg/dL (11/30/22 2:05 PM) 16 mg/dL (11/29/22 10:33 PM) U Amph Scrn [Negative] Negative (11/29/22 1: PM) UA Color [Yellow] Yellow (11/29/22 1: PM) UA WBC [0-3] 4-6 *ABN* (11/29/22 1:21 PM) Glucose Level [74-106 mg/dL] 93 mg/dL (12/01/22 6:30 AM) 111 mg/dL *HI* (11/30/22 2:05 PM) 122 mg/dL *HI* (11/29/22 10:33 PM) Potassium Level [3.5-5.1 mmol/L] 3.3 mmol/L *LOW* (12/01/22 2:38 PM) 3.1 mmol/L *LOW* (12/01/22 6:30 AM) 3.7 mmol/L (11/30/22 2:05 PM) Baso Absolute [0.0-0.2 K/mcL] 0.0 K/mcL (12/01/22 6:30 AM) 0.0 K/mcL (11/30/22 3:17 PM) 0.0 K/mcL (11/29/22 1:21 PM) U Benzodia Scrn [Negative] Negative (11/29/22 1:21 PM) MCV [81.0-99.0 fL] 94.0 fL (12/01/22 6:30 AM) 94.2 fL (11/30/22 3:17 PM) 91.7 fL (11/29/22 1:21 PM) UA Urobilinogen [0.2] 0.2 (11/29/22 1:21 PM) T4 Free [0.61-1.12 ng/dL] 1.16 ng/dL *HI* (11/29/22 1:21 PM) UA Bili [Negative] Negative (11/29/22 1:21 PM) CO2 Total Venous [22.0-26.0 mmol/L] 25.4 mmol/L (11/29/22 10:33 PM) UA Ketones [Negative] Negative (11/29/22 1:21 PM) HCO3 Venous [22.0-29.0 mmol/L] 24.4 mmol/L (11/29/22 10:33 PM) AST [15-41 IntlUnit/L] 32 IntlUnit/L (11/29/22 1:21 PM) ALT [14-54 IntlUnit/L] 20 IntlUnit/L (11/29/22 1:21 PM) MCHC [32.0-36.0 g/dL] 35.4 g/dL (12/01/22 6:30 AM) 35.2 g/dL (11/30/22 3:17 PM) 35.5 g/dL (11/29/22 1:21 PM) Osmolality [275-295 mOsm/kg] 270 mOsm/kg *LOW* (12/01/22 6:30 AM) 276 mOsm/kg (11/30/22 2:05 PM) 261 mOsm/kg *LOW* (11/29/22 10:33 PM) Sodium Level [134-143 mmol/L] 136 mmol/L (12/01/22 6:30 AM) 138 mmol/L (11/30/22 2:05 PM) 129 mmol/L *LOW* (11/29/22 10:33 PM) UA RBC [0-3] 4-6 *ABN* (11/29/22 1:21 PM) UA Leuk Est [Negative] Trace *ABN* (11/29/22 1:21 PM) Lymph Absolute [1.2-3.4 K/mcL] 1.8 K/mcL (12/01/22 6:30 AM) 1.5 K/mcL (11/30/22 3:17 PM) 1.3 K/mcL (11/29/22 1:21 PM) UA Nitrite [Negative] Negative (11/29/22 1:21 PM) UA Glucose [Negative] Negative (11/29/22 1:21 PM) Hct [37.0-47.0 %] 31.4 % *LOW* (12/01/22 6:30 AM) 30.7 % *LOW* (11/30/22 3:17 PM) 35.2 % *LOW* (11/29/22 1:21 PM) UA Bacteria [None Seen] 1+ *ABN* (11/29/22 1:21 PM) U Cocaine Scrn [Negative] Positive *ABN* (11/29/22 1: PM) Calcium Level [8.9-10.3 mg/dL] 7.7 mg/dL *LOW* (12/01/22 6:30 AM) 8.0 mg/dL *LOW* (11/30/22 2:05 PM) 7.4 mg/dL *LOW* (11/29/22 10:33 PM) Terry Absolute [0.1-0.6 K/mcL] 0.7 K/mcL *HI* (12/01/22 6:30 AM) 0.7 K/mcL *HI* (11/30/22 3:17 PM) 0.8 K/mcL *HI* (11/29/22 1:21 PM) Phosphorus Level [2.5-4.9 mg/dL] 3.9 mg/dL (12/01/22 6:30 AM) 2.8 mg/dL (11/30/22 2:05 PM) 2.7 mg/dL (11/29/22 2:50 PM) Albumin Level [3.5-5.0 g/dL] 3.3 g/dL *LOW* (11/29/22 1:21 PM) Protein Total [6.5-8.1 g/dL] 6.8 g/dL (11/29/22 1:21 PM) UA Protein [Negative] Negative (11/29/22 1:21 PM) MCH [27.0-31.0 pg] 33.2 pg *HI* (12/01/22 6:30 AM) 33.1 pg *HI* (11/30/22 3:17 PM) 32.6 pg *HI* (11/29/22 1:21 PM) Magnesium Level [1.8-2.5 mg/dL] 1.4 mg/dL *LOW* (12/01/22 6:30 AM) 1.8 mg/dL (11/30/22 2:05 PM) 2.3 mg/dL (11/29/22 2:50 PM) Neutro Absolute [1.4-6.5 K/mcL] 6.0 K/mcL (12/01/22 6:30 AM) 4.8 K/mcL (11/30/22 3:17 PM) 9.3 K/mcL *HI* (11/29/22 1: PM) Bilirubin Total [0.2-1.2 mg/dL] 0.7 mg/dL (11/29/22 1:21 PM) Hgb [12.0-16.0 g/dL] 11.1 g/dL *LOW* (12/01/22 6:30 AM) 10.8 g/dL *LOW* (11/30/22 3:17 PM) 12.5 g/dL (11/29/22 1:21 PM) Alk Phos [38-130 IntlUnit/L] 111 IntlUni t/L (11/29/22 1:21 PM) UA Blood [Negative] Large *ABN* (11/29/22 1:21 PM) MPV [7.4-10.4 fL] 10.4 fL (12/01/22 6:30 AM) 9.9 fL (11/30/22 3:17 PM) 10.1 fL (11/29/22 1:21 PM) pCO2 [place] [42.0-53.0 mmHg] 32.0 mmHg *LOW* (11/29/22 10:33 PM) Salicylate Level [<=30.0 mg/dL] <4.0 mg/dL (11/29/22 1:21 PM) Ethanol Level [0.00-0.08 g/dL] See Comment g/dL 1 *NA* (11/29/22 1:21 PM) UA Spec Grav 1.010 *NA* (11/29/22 1: PM) Platelets [130-400 K/mcL] 298 K/mcL (12/01/22 6:30 AM) 315 K/mcL (11/30/22 3:17 PM) 360 K/mcL (11/29/22 1:21 PM) CO2 [22-32 mmol/L] 25 mmol/L (12/01/22 6:30 AM) 25 mmol/L (11/30/22 2:05 PM) 21 mmol/L *LOW* (11/29/22 10:33 PM) Eos Absolute [0.0-0.2 K/mcL] 0.2 K/mcL (12/01/22 6:30 AM) 0.1 K/mcL (11/30/22 3:17 PM) 0.0 K/mcL (11/29/22 1:21 PM) U Pau Scrn [Negative] Negative (11/29/22 1:21 PM) Lactic Acid Lvl [0.5-2.2 mmol/L] 0.7 mmol/L (12/01/22 6:30 AM) 2.2 mmol/L (11/30/22 2:05 PM) UA Squam Epithelial [0-3] 4-6 (11/29/22 1:21 PM) TSH [0.45-5.33 mIntlUnit/mL] 0.33 mIntlU nit/mL *LOW* (11/29/22 1:21 PM) UA pH 5.00 *NA* (11/29/22 1:21 PM) pH [place] [7.32-7.42 pH unit(s)] 7.49 pH unit(s) *HI* (11/29/22 10:33 PM) U Opiate Scrn [Negative] Negative (11/29/22 1:21 PM) Base Excess Venous 1.7 *NA* (11/29/22 10:33 PM) UA Appear [Clear] Slightly Cloudy *ABN* (11/29/22 1:21 PM) Acetaminophen Level [10.0-30.0 ug/mL] <10.0 ug/mL (11/29/22 1:21 PM) Chloride Level [98-111 mmol/L] 106 mmol/L (12/01/22 6:30 AM) 101 mmol/L (11/30/22 2:05 PM) 103 mmol/L (11/29/22 10:33 PM) U Oxy Scrn [Negative] Negative (11/29/22 1:21 PM) U PCP Scrn [Negative] Negative (11/29/22 1:21 PM) RDW-CV [11.5-14.5 %] 13.1 % (12/01/22 6:30 AM) 12.9 % (11/30/22 3:17 PM) 12.6 % (11/29/22 1:21 PM) A/G Ratio 0.9 *NA* (11/29/22 1:21 PM) BUN/Creat Ratio [8.0-20.0] 5.8 *LOW* (12/01/22 6:30 AM) 6.1 *LOW* (11/30/22 2:05 PM) 5.2 *LOW* (11/29/22 10:33 PM) Globulin 3.5 *NA* (11/29/22 1:21 PM) U THC Scr [Negative] Positive *ABN* (11/29/22 1:21 PM) U PPX Scr [Negative] Negative (11/29/22 1:21 PM) U Methadone Scr [Negative] Negative (11/29/22 1:21 PM) Imm Gran Absolute 0.02 *NA* (12/01/22 6:30 AM) 0.02 *NA* (11/30/22 3:17 PM) 0.04 *NA* (11/29/22 1:21 PM) Imm Gran Auto [0.0-0.5 %] 0.2 % (12/01/22 6:30 AM) 0.3 % (11/30/22 3:17 PM) 0.3 % (11/29/22 1:21 PM) UA Culture Ind?. [No] Yes (11/29/22 1:21 PM) Urine Srce Clean Catch (11/29/22 1:21 PM) U Buprenorph Scr [Negative] Negative (11/29/22 1:21 PM) U mAMP Scr [Negative] Negative (11/29/22 1:21 PM) U TCA Scr [Negative] Negative (11/29/22 1:21 PM) SARS-CoV-2 (COVID-19) PCR (GeneXpert) [Negative] Negative (11/29/22 2:07 PM) Creatinine Level [0.44-1.00 mg/dL] 1.21 mg/dL *HI* (12/01/22 6:30 AM) 1.81 mg/dL *HI* (11/30/22 2:05 PM) 3.10 mg/dL *HI* (11/29/22 10:33 PM) Employed in healthcare? No *NA* (11/29/22 2:07 PM) Symptomatic as defined by CDC? No *NA* (11/29/22 2:07 PM) Hospitalized due to COVID-19? No *NA* (11/29/22 2:07 PM) In ICU? No *NA* (11/29/22 2:07 PM) Group care resident? No *NA* (11/29/22 2:07 PM) status? Not *NA* (11/29/22 2:07 PM) Anion Gap [3.0-12.0] 5.0 (12/01/22 6:30 AM) 12.0 (11/30/22 2:05 PM) 5.0 (11/29/22 10:33 PM) HIV 1/2 Ag/Ab Combo by CMIA [Non Reactive] Non Reactive (11/29/22 1:21 PM) Eos, Auto [0.00-3.00 %] 2.50 % (12/01/22 6:30 AM) 1.30 % (11/30/22 3:17 PM) 0.40 % (11/29/22 1:21 PM) U hCG Ql [Negative] Negative (11/29/22 1:21 PM) Instr Ethanol Lvl [<=5 mg/dL] <5 mg/dL (11/29/22 1:21 PM) eGFR CKD-EPI [>=60 mL/min/1.73 m2] 63 mL/min/1.73 m2 (12/01/22 6:30 AM) 39 mL/min/1.73 m2 *LOW* (11/30/22 2:05 PM) 20 mL/min/1.73 m2 *LOW* (11/29/22 10:33 PM) CK [38-234 unit/L] 126 unit/L 2 (11/29/22 10:33 PM) 158 unit/L 3 (11/29/22 8:32 PM) 182 unit/L 4 (11/29/22 2:50 PM) 1Result Comment: Unable to calculate ratio value as result is less than the linear limit. 2Result Comment: CK run at [facility]. 3Result Comment: CK run at [facility]. 4Result Comment: CK run at [facility]. Orders for Microbiology Reports Name Date Urine Culture 11/29/22 Microbiology Reports TEST:Urine Culture STATUS:Auth (Verified) BODY SITE:Clean Catch SOURCE:Urine COLLECTED DATE/TIME:11/29/22 1:21 PM FINAL REPORT No growth of uropathogens Radiology Reports * Exam Date Time Procedure Performing Provider Status 11/29/22 2:[address] Abdomen and Pelvi s w/o Contrast Mayra Anderson; Auth (Verified) Notes: (CT Abdomen and Pelvis w/o Contrast) Reason For Exam: flank pain/STONE CT Abdomen and Pelvis w/o Contrast PROCEDURE INFORMATION: Exam: CT Abdomen And Pelvis Without Contrast Exam date and time: 11/29/2022 2:30 PM Age: 27 years old Clinical indication: Abdominal pain; Flank; Left; Additional info: Flank pain/stone TECHNIQUE: Imaging protocol: Computed tomography of the abdomen and pelvis without contrast. Radiation optimization: All CT scans at this facility use at least one of these dose optimization techniques: automated exposure control; mA and/or kV adjustment per patient size (includes targeted exams where dose is matched to clinical indication); or iterative reconstruction. REPORTING DATA: Count of CT and Cardiac NM exams in prior 12 months: This patient has received 0 known CTs and 0 known cardiac nuclear medicine studies in the 12 months prior to the current study. COMPARISON: US ABDOMINAL COMPLETE 07/01/2017 9:11 AM FINDINGS: Limitations: Evaluation for solid parenchymal lesions is suboptimal on this examination due to lack of intravenous contrast. Liver: Normal. No mass. Gallbladder and bile ducts: Normal. No calcified stones. No ductal dilation. Pancreas: Normal. No ductal dilation. Spleen: Normal. No splenomegaly. Adrenal glands: Normal. No mass. Kidneys and ureters: See Reproductive finding. Stomach and bowel: No evidence of bowel obstruction or significant bowel wall thickening. Appendix: No evidence of appendicitis. Intraperitoneal space: Unremarkable. No free air. No significant fluid collection. Vasculature: Unremarkable. No abdominal aortic aneurysm. Lymph nodes: Unremarkable. No enlarged lymph nodes. Urinary bladder: Unremarkable as visualized. No bladder calculi. Reproductive: An IUD is in place within a retroverted uterus.No stones identified within either kidney or along the course of either ureter. There is no evidence of hydronephrosis or hydroureter. Bones/joints: Unremarkable. No acute fracture. Soft tissues: Unremarkable. IMPRESSION: No acute findings. No renal/ureteral calculi or hydronephrosis. THIS DOCUMENT HAS BEEN ELECTRONICALLY SIGNED BY SAROJ WICK MD on 11/29/2022 03:50 PM Final Signed by: Saroj Wick MD Signed (Electronic Signature): 11/29/2022 3:50 pm Vital Signs Most recent to oldest [Reference Range]: 1 2 3 Temperature Axillary [35.2-38 Deg C] 37.1 Deg C (11/29/22 5:54 PM) Temperature Tympanic [36.6-37.9 Deg C] 37.1 Deg C (11/29/22 5:59 PM) Temperature Temporal Artery [36-38 Deg C] 36.4 Deg C (12/01/22 3:32 PM) 36.6 Deg C (12/01/22 9:51 AM) 36.4 Deg C 1 (12/01/22 4:52 AM) Temperature Temporal Artery (DegF) [97.3-100 Deg F] 97.88 Deg F (11/30/22 2:26 PM) 98.78 Deg F (11/30/22 4:05 AM) Peripheral Pulse Rate [60-100 bpm] 90 bpm (12/01/22 3:32 PM) 71 bpm (12/01/22 9:51 AM) 91 bpm (12/01/22 12:00 AM) Respiratory Rate [12-24 br/min] 18 br/min (12/01/22 3:32 PM) 18 br/min (12/01/22 9:51 AM) 18 br/min (12/01/22 4:52 AM) Blood Pressure [90-140/60-90 mmHg] 115/74mmHg (12/01/22 3:32 PM) 127/69mmHg (12/01/22 9:51 AM) 110/63mmHg (12/01/22 12:00 AM) Mean Arterial Pressure, Cuff [65-140 mmHg] 98 mmHg (11/29/22 5:54 PM) Blood Pressure Location Right arm (11/29/22 5:54 PM) Patient Position BP Sitting (11/29/22 5:54 PM) Weight 64.9 kg (11/30/22 12:48 PM) 64.700 kg (11/29/22 5:59 PM) 64.7 kg (11/29/22 5:59 PM) Weight Dosing 64.700 kg (11/29/22 5:59 PM) 58.97 kg (11/29/22 1:07 PM) Weight Estimated 58.97 kg (11/29/22 12:44 PM) Height 162.600 cm (11/29/22 5:59 PM) Height/Length Dosing 162.600 cm (11/29/22 5:59 PM) 163.000 cm (11/29/22 1:07 PM) Body Mass Index 24.470 kg/m2 (11/29/22 5:59 PM) Height/Length Estimated 163.000 cm (11/29/22 12:44 PM) 1Result Comment: Patient refused to take her other vital signs such as Blood Pressure, Heart Rate & SpO2. Social History Social History Type Response Tobacco Never tobacco user T obacco Use:. 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 Last used crack on . History Of Present Illness: This patient is a 27-year-old female??with a history of crack cocaine use??who presents today for evaluation of suicidal ideation??and substance abuse.?The patient states that??she has been using crack cocaine??by smoking it multiple times a day but not every day.?? Recently she has been having suicidal thoughts although did not describe having a plan.?? She states she has tried to commit suicide in the past but does not remember how.?? Patient denies any homicidal ideation. ??The patient??is currently living with her mother who is here at the bedside.?? Patient denies any hallucinations. ??She is states that as far as??physical complaints she has??some mild bilateral flank discomfort which she describes as being a muscle tightening??and denies any urinary symptoms associated with it. ??She also??has had??a sore inside of her mouth??for which she took 1 day of valacyclovir for??but it did not resolve.?? Patient last use crack cocaine on . Review of Systems: CONSTITUTIONAL:??No fevers or chills. EYES:??No change in vision. ENT:??No sore throat. ??No headache. ??No neck pain. CARDIOVASCULAR:??No chest pain, palpitations or passing out episodes. RESPIRATORY:??No cough, shortness of breath or hemoptysis. GI:??No abdominal pain. No nausea, vomiting or diarrhea. :??+change in urination. SKIN:??No rash. NEUROLOGIC:??No numbness or weakness. MUSCULOSKELETAL:??No swelling or pain. PSYCHIATRIC:??+depression. LYMPH:??No swelling. Review of systems otherwise as stated in HPI Physical Exam Vitals & Measurements T:??36.9?C ??(Temporal Artery)?? HR:??119??(Peripheral)?? RR:??18?? BP:??144/86?? SpO2:??100%?? HT:??163.000??cm?? WT:??58.97??kg??(Estimated)?? O2 Flow Rate:??0?? General: ??AAOx3. ??GCS15. ??No acute distress, answering questions appropriately.?? Or hygiene. Head: ??Atraumatic; Normocephalic Eye: ??PERRLA; EOMI; no scleral icterus / pallor ENT: moist mucous membranes; no epistaxis. No stridor.?? On the frenulum of the tongue there is a??verrucous??growth??which is white in color??and small.?? On the mucosal aspect of the lower lip there is what appears to be an aphthous ulcer.?? There is also a lesion at the gumline on the mucosal aspect of the lower lip??which is??raised but has a flat top to it it is also white with clear borders??with a flat wartlike appearance to it Neck: ??Active ROM intact; Trachea Midline. ??No JVD. ??No meningismus appreciated. Skin: Warm, dry Chest: ??Equal BS bilaterally. ??Clear to auscultation bilaterally. Heart: RRR; no murmur, rub, or gallop Abdomen: ??Soft, non-tender, non-distended, no guarding, rebound, or rigidity. No Hepatosplenomegaly Musculoskeletal: ??ROM intact of all extremities/joints without discomfort. ??Sensation grossly intact throughout. ??No obvious deformity. ??Strength Intact 5/5 throughout. ?? Neuro: Alert and oriented. Answering questions appropriately with clear speech. Motor and sensory grossly normal in all extremities.?? Psychiatric: Tearful although answering my questions appropriately and cooperative.?? Does not appear to be acutely intoxicated.?? No slurred speech.?? Does not appear to be responding to any internal stimuli. Medical Decision Making: Patient is a 27-year-old female who has a history of crack cocaine use who presents today for evaluation of suicidal ideation.?? Patient is asking for help with her substance abuse and also for depressed mood with suicidal ideation. ??She does not currently have a plan. ?? 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 ??I have added on an HIV test for the patient. ??I also explained to the patient that she will need to have a biopsy of this lesion??to understand??that a diagnosis or origin for these lesions especially since they seem to be recurrent for her and are concerning in their appearance. ?? Patient's blood work shows a CBC with a white blood cell count of 11.5 and stable hemoglobin.?? Surprisingly, on her CMP she has a creatinine of 4.09.?? Patient states she has no history of any kidney function issues in the past and otherwise no past medical history.?? Patient's BUN is normal.??She has been complaining of some flank discomfort so I am going to get a CT scan of the abdomen pelvis and also do a bladder scan to make sure there is no obstructive uropathy causing her elevated creatinine.?? Patient's test is negative, Tylenol, salicylate and alcohol levels are normal.?? Her urine tox screen was positive for marijuana and cocaine both of which she had admitted to using.?? She has large blood on the UA but no evidence of infection.?? Patient tells me ally go back totalk to her about her kidney function that over the last few weeks she has noted that she only urinates once or twice per day. ??She has been drinking fluids but not eating.?? She has been having bilateral flank discomfort. Patient's blood pressure is not significantly elevated.?? She shows no signs of acute urinary retention on bladder scan.?? She is not currently .?? CT scan??of the abdomen pelvis was negative. Procedure No Qualifying Data Assessment/Plan 1.??Renal insufficiency??N28.9 2.??Cocaine abuse??F14.10 Orders: nicotine 21 mg/24 hr Transderm ER Film, 1 patches, TD, Film, every 24 hr, First Dose: 11/30/22 14:00:00 EDT Nicotine Patch Removal, 1 EA, TD, Misc, every 24 hr, First Dose: 11/29/22 14:00:[address] Abdomen and Pelvis w/o Contrast, 11/29/22 14:18:00 EDT, Stat, Reason: flank pain/STONE, Transport Mode: Stretcher Decision to Admit, 11/29/22 15:26:00 EDT, Medical Unit HIV Ag/Ab Combo 1/2, Blood, Stat, 11/29/22 13:13:00 EDT, Once, Nurse collect Urine Culture, Urine, Clean Catch, Stat collect, ST - Stat, 11/29/22 13:21:00 EDT, Once, Nurse collect, Collected, 11/29/22 13:21:00 EDT, Print Label, [id number] Medication Reconciliation Changed cyproheptadine (cyproheptadine 4 mg oral tablet)1 tab Oral (given by mouth) 2 times a day for 10 Days. ?? lurasidone (Latuda 120 mg oral tablet)200 Milligrams Oral (given by mouth) every evening. ?? melatonin (Melatonin 3 mg oral tablet)2 tab Oral (given by mouth) every night at bedtime. TAKE TWO TABLETS BY MOUTH AT BEDTIME. ?? montelukast (montelukast 10 mg oral tablet)1 tab Oral (given by mouth) every evening. ?? prazosin (prazosin 1 mg oral capsule)2 Milligrams Oral (given by mouth) every night at bedtime. TAKE THREE CAPSULES BY MOUTH AT BEDTIME. ?? traZODone (traZODone 100 mg oral tablet)300 Milligrams Oral (given by mouth) every night at bedtime. ?? valACYclovir (valACYclovir 1 g oral tablet)1 tab Oral (given by mouth) every day. ?? Unchanged cetirizine ?? cetirizine (cetirizine 10 mg oral tablet)1 tab Oral (given by mouth) every day as needed as needed for allergy symptoms. ?? clonazePAM (clonazePAM 0.5 mg oral tablet)1.5 Milligrams Oral (given by mouth) 3 times a day. ?? flax (Flax Seed Oil oral capsule)1,200 Milligrams Oral (given by mouth) every day. ?? gabapentin (gabapentin 800 mg oral tablet)1 tab Oral (given by mouth) 3 times a day. ?? magnesium oxide (magnesium oxide 250 mg oral tablet)1 tab Oral (given by mouth) every day. Problem List/Past Medical History Ongoing No qualifying data Historical No qualifying data Medication Administration Given Sodium Chloride 0.9%, 1000 mL, Hydration Bolus. For: Renal insufficiency,??Cocaine abuse Nicotine Patch Removal, 1 EA, TD Allergies Latex Wellbutrin codeine penicillin sulfa drugs Social History Electronic Cigarette/Vaping Electronic Cigarette Use: Use, within last 90 days. Tobacco Never tobacco user Tobacco Use:. Lab Results CBC and Differential?? LATEST RESULTS?? WBC?? 11/29/22 13:21?? 11.5 ??High?? RBC?? 11/29/22 13:21?? 3.84 ??Low?? Hgb?? 11/29/22 13:21?? 12.5?? Hct?? 11/29/22 13:21?? 35.2 ??Low?? MCV?? 11/29/22 13:21?? 91.7?? MCH?? 11/29/22 13:21?? 32.6 ??High?? MCHC?? 11/29/22 13:21?? 35.5?? RDW-CV?? 11/29/22 13:21?? 12.6?? Platelets?? 11/29/22 13:21?? 360?? MPV?? 11/29/22 13:21?? 10.1?? Neutro Auto?? 11/29/22 13:21?? 80.9 ??High?? Lymph Auto?? 11/29/22 13:21?? 11.1 ??Low?? Terry Auto?? 11/29/22 13:21?? 7.0?? Eos, Auto?? 11/29/22 13:21?? 0.40?? Basophil Auto?? 11/29/22 13:21?? 0.3?? Imm Gran Auto?? 11/29/22 13:21?? 0.3?? Neutro Absolute?? 11/29/22 13:21?? 9.3 ??High?? Lymph Absolute?? 11/29/22 13:21?? 1.3?? Terry Absolute?? 11/29/22 13:21?? 0.8 ??High?? Eos Absolute?? 11/29/22 13:21?? 0.0?? Baso Absolute?? 11/29/22 13:21?? 0.0?? Imm Gran Absolute?? 11/29/22 13:21?? 0.04? Routine Chemistry?? LATEST RESULTS?? Sodium Level?? 11/29/22 13:21?? 131 ??Low?? Potassium Level?? 11/29/22 13:21?? 3.3 ??Low?? Chloride Level?? 11/29/22 13:21?? 95 ??Low?? CO2?? 11/29/22 13:21?? 22?? Alk Phos?? 11/29/22 13:21?? 111?? AST?? 11/29/22 13:21?? 32?? ALT?? 11/29/22 13:21?? 20?? BUN?? 11/29/22 13:21?? 18?? Glucose Level?? 11/29/22 13:21?? 131 ??High?? Creatinine Level?? 11/29/22 14:45?? 3.89 ??High?? BUN/Creat Ratio?? 11/29/22 13:21?? 4.4 ??Low?? Calcium Level?? 11/29/22 13:21?? 8.9?? Protein Total?? 11/29/22 13:21?? 6.8?? Albumin Level?? 11/29/22 13:21?? 3.3 ??Low?? Globulin?? 11/29/22 13:21?? 3.5?? A/G Ratio?? 11/29/22 13:21?? 0.9?? Bilirubin Total?? 11/29/22 13:21?? 0.7?? Anion Gap?? 11/29/22 13:21?? 14.0 ??High?? Osmolality?? 11/29/22 13:21?? 266 ??Low?? eGFR CKD-EPI?? 11/29/22 14:45?? 16 ??Low? Testing?? LATEST RESULTS?? U hCG Ql?? 11/29/22 13:21?? Negative? Thyroid Studies?? LATEST RESULTS?? T4 Free?? 11/29/22 13:21?? 1.16 ??High?? TSH?? 11/29/22 13:21?? 0.33 ??Low? Serum Toxicology?? LATEST RESULTS?? Acetaminophen Level?? 11/29/22 13:21?? <10.0?? Salicylate Level?? 11/29/22 13:21?? <4.0?? Ethanol Level?? 11/29/22 13:21?? See Comment?? Instr Ethanol Lvl?? 11/29/22 13:21?? <5? Urine Toxicology?? LATEST RESULTS?? U Amph Scrn?? 11/29/22 13:21?? Negative?? U Pau Scrn?? 11/29/22 13:21?? Negative?? U Benzodia Scrn?? 11/29/22 13:21?? Negative?? U Buprenorph Scr?? 11/29/22 13:21?? Negative?? U Cocaine Scrn?? 11/29/22 13:21?? Positive Abnormal?? U TCA Scr?? 11/29/22 13:21?? Negative?? U THC Scr?? 11/29/22 13:21?? Positive Abnormal?? U mAMP Scr?? 11/29/22 13:21?? Negative?? U Methadone Scr?? 11/29/22 13:21?? Negative?? U Opiate Scrn?? 11/29/22 13:21?? Negative?? U Oxy Scrn?? 11/29/22 13:21?? Negative?? U PCP Scrn?? 11/29/22 13:21?? Negative?? U PPX Scr?? 11/29/22 13:21?? Negative? UA Macroscopic?? LATEST RESULTS?? Urine Srce?? 11/29/22 13:21?? Clean Catch?? UA Color?? 11/29/22 13:21?? Yellow?? UA Appear?? 11/29/22 13:21?? Slightly Cloudy Abnormal?? UA Glucose?? 11/29/22 13:21?? Negative?? UA Bili?? 11/29/22 13:21?? Negative?? UA Ketones?? 11/29/22 13:21?? Negative?? UA Spec Grav?? 11/29/22 13:21?? 1.010?? UA Blood?? 11/29/22 13:21?? Large Abnormal?? UA pH?? 11/29/22 13:21?? 5.00?? UA Protein?? 11/29/22 13:21?? Negative?? UA Urobilinogen?? 11/29/22 13:21?? 0.2?? UA Nitrite?? 11/29/22 13:21?? Negative?? UA Leuk Est?? 11/29/22 13:21?? Trace Abnormal?? UA Culture Ind?.?? 11/29/22 13:21?? Yes? UA Microscopic?? LATEST RESULTS?? UA WBC?? 11/29/22 13:21?? 4-6 Abnormal?? UA RBC?? 11/29/22 13:21?? 4-6 Abnormal?? UA Squam Epithelial?? 11/29/22 13:21?? 4-6?? UA Bacteria?? 11/29/22 13:21?? 1+ Abnormal? Infectious Disease?? LATEST RESULTS?? SARS-CoV-2 (COVID-19) PCR ([facility])?? 11/29/22 14:07?? Negative?? Employed in healthcare??? 11/29/22 14:07?? No?? Symptomatic as defined by CDC??? 11/29/22 14:07?? No?? Hospitalized due to COVID-19??? 11/29/22 14:07?? No?? In ICU??? 11/29/22 14:07?? No?? Group care resident??? 11/29/22 14:07?? No?? status??? 11/29/22 14:07?? Not ? Electronically Signed on 11/30/22 08:39 AM Nisha Morse MD Nutrition and dietetics Progress note * Aimee Cordero: PERFORM Event Display: Nutrition Note Authored Date: [id number] Assessment and Monitoring Initial Nutrition Assessment Reason for Referral:??education ?? Diet Order:??Diet Order -- 11/29/22 17:02:00 EDT, Regular, Vegan, Safety precautions, vegan Allergies:??Latex; Wellbutrin; sulfa drugs; penicillin; codeine ? Nutrition Assessment: 27 yo F admit??for SI and substance abuse. Cr was elevated at admission but trending down with hydration.??Mg, K+??low, does take MVI. ?Patient is Vegan, does have??limited options here but said she is okay with our options so far and feels like she has enough to eat. Offered with generally have??vegan smoothies, hummus and veggie wraps etc.??Appetite good.??Continue to monitor and adjust as needed. Skin intact. ? Monitor/Evaluation:?? Nutrition Diagnosis no active nutrition diagnosis. Nutrition Goals POs >75% of meals sKin WNL labs wnl Nutrition Interventions Regular/vegan diet per choice offer vegan options/increase variety as able Anthropometrics/Estimated Needs Mkxquc66.9 kg(Recorded: 11/30/2022 12:48 EDT) Bcgavq877.600 cm(Recorded: 11/29/2022 17:59 EDT) Body Mass Index24.470 kg/m2(Recorded: 11/29/2022 17:59 EDT) Estimated Energy Needs: 1625-1950kcal (25-30kcal/kg actual BW) Estimated Protein Needs: 52-65g (.8-1.0g/kg actual BW) Estimated Fluid Needs: 1625-1950ml (1ml/kcal) Reason for Visit Patient voluntary admitted for substance use and suicidal ideations Problem List/Past Medical History Ongoing No chronic problems Historical No qualifying data Social History Electronic Cigarette/Vaping Electronic Cigarette Use: Use, within last 90 days. Tobacco Never tobacco user Tobacco Use:. Diet Orders Diet Order, 11/29/22 17:02:00 EDT, Regular, Vegan, Safety precautions, vegan Allergies Latex Wellbutrin codeine penicillin sulfa drugs Nutrition Lab Results Test Name Test Result Date/Time WBC 8.7 K/mcL 12/01/2022 06:30 EDT Hgb 11.1 g/dL 12/01/2022 06:30 EDT Hct 31.4 % 12/01/2022 06:30 EDT MCV 94.0 fL 12/01/2022 06:30 EDT Platelets 298 K/mcL 12/01/2022 06:30 EDT Sodium Level 136 mmol/L 12/01/2022 06:30 EDT Potassium Level 3.1 mmol/L 12/01/2022 06:30 EDT Chloride Level 106 mmol/L 12/01/2022 06:30 EDT CO2 25 mmol/L 12/01/2022 06:30 EDT Alk Phos 111 IntlUnit/L 11/29/2022 13:21 EDT ALT 20 IntlUnit/L 11/29/2022 13:21 EDT BUN 7 mg/dL 12/01/2022 06:30 EDT Glucose Level 93 mg/dL 12/01/2022 06:30 EDT Creatinine Level 1.21 mg/dL 12/01/2022 06:30 EDT Phosphorus Level 3.9 mg/dL 12/01/2022 06:30 EDT Albumin Level 3.3 g/dL 11/29/2022 13:21 EDT Bilirubin Total 0.7 mg/dL 11/29/2022 13:21 EDT Magnesium Level 1.4 mg/dL 12/01/2022 06:30 EDT Medications Inpatient acetaminophen, 1000 mg= 2 tab, Oral, every 6 hr, PRN clonazePAM, 1.5 mg= 3 tab, Oral, TID cyproheptadine 4 mg oral tablet, 4 mg= 1 tab, Oral, BID gabapentin, 300 mg= 1 cap, Oral, TID Latuda, 60 mg= 3 tab, Oral, every evening melatonin 3 mg oral tablet, 6 mg= 2 tab, Oral, every night at bedtime montelukast, 10 mg= 1 tab, Oral, every evening nicotine 2 mg oral transmucosal gum, 2 mg= 1 EA, Transmucosal, every 2 hr, PRN nicotine 21 mg/24 hr Transderm ER Film, 1 patches, TD, every 24 hr Nicotine Patch Removal, 1 EA, TD, every 24 hr prazosin, 2 mg= 2 cap, Oral, every night at bedtime senna 8.6 mg oral tablet, 8.6 mg= 1 tab, Oral, BID traZODone, 200 mg= 4 tab, Oral, every night at bedtime valACYclovir, 500 mg= 1 tab, Oral, Daily Home cetirizine 10 mg oral tablet, 10 mg= 1 tab, Oral, every morning clonazePAM, 1.5 mg, Oral, TID cyproheptadine 4 mg oral tablet, 8 mg= 2 tab, Oral, BID Flax Seed Oil oral capsule, 1200 mg, Oral, Daily gabapentin 800 mg oral tablet, 800 mg= 1 tab, Oral, TID Latuda, 200 mg, Oral, With Evening Meal magnesium oxide 250 mg oral tablet, 250 mg= 1 tab, Oral, every evening Melatonin 3 mg oral tablet, 6 mg= 2 tab, Oral, every night at bedtime montelukast 10 mg oral tablet, 10 mg= 1 tab, Oral, every evening multivitamin adult, oral tablet, 1 tab, Oral, Daily prazosin 1 mg oral capsule, 2 mg, Oral, every night at bedtime traZODone 100 mg oral tablet, 300 mg, Oral, every night at bedtime valACYclovir 1 g oral tablet, 1 g= 1 tab, Oral, every morning Electronically Signed on 12/01/22 03:08 PM Aimee Cordero Progress note * Alcon Jacobo MD: PERFORM Event Display: Progress Note - Physician Authored Date: [id number] LAURI LOGAN :1995 Age:27 years Sex:Female Visit Date:11/29/2022 Subjective The patient has multiple complaints today, wanting nicotine gum on top of her nicotine patch, wanting stool softener. Review of Systems Constitutional: Rate of needles, frustrated ENT: Mouth pain,??significant improvement Respiratory:??No shortness of breath, cough Cardiovascular:??No Chest pain, palpitations, syncope Gastrointestinal:??No nausea, vomiting, diarrhea Genitourinary:??No hematuria Musculoskeletal:??No back pain, neck pain, joint pain, muscle pain, decreased range of motion Neurologic:??Alert & oriented X 4 ?? Objective Vitals & Measurements T:??36.6?C ??(Temporal Artery)?? TMIN:??36.6?C ??(Temporal Artery)?? TMAX:??37.1?C ??(Axillary)?? HR:??68??(Peripheral)?? RR:??18?? BP:??144/85?? SpO2:??100%?? HT:??162.600??cm?? WT:??64.700??kg?? WT:??64.7??kg?? BMI:??24.470?? Pain Score:??0?? O2 Flow Rate:??0?? O2 Therapy:??Room air??O2 Therapy:??Room air?? Physical Exam General: Appears more frustrated, irritated today.?? HENT: All 3 lesions in mouth's look improved, less whiteness under the tongue.?? Lungs:??Clear to auscultation and percussion, non-labored respiration.?? Heart:??Normal rate, regular rhythm, no murmur, gallop or edema. Abdomen:??Soft, non-tender, non-distended, normal bowel sounds, no masses.?? Musculoskeletal:??Normal range of motion and strength, no tenderness or swelling. Skin:??Skin is warm, dry and pink, no rashes or lesions. Neurologic:??Awake, alert and oriented X4, CN I-XII intact Lab Results Last 24 Hours?? Chemistry ? Event Name?? Event Result?? Date/Time?? Sodium Level 129 mmol/L??Low 11/29/22 22:33:00 Potassium Level 2.9 mmol/L??Low 11/29/22 22:33:00 Chloride Level 103 mmol/L 11/29/22 22:33:00 CO2 21 mmol/L??Low 11/29/22 22:33:00 Alk Phos 111 IntlUnit/L 11/29/22 13:21:00 AST 32 IntlUnit/L 11/29/22 13:21:00 ALT 20 IntlUnit/L 11/29/22 13:21:00 BUN 16 mg/dL 11/29/22 22:33:00 Glucose Level 122 mg/dL??High 11/29/22 22:33:00 Creatinine Level 3.1 mg/dL??High 11/29/22 22:33:00 BUN/Creat Ratio 5.2??Low 11/29/22 22:33:00 Calcium Level 7.4 mg/dL??Low 11/29/22 22:33:00 Phosphorus Level 2.7 mg/dL 11/29/22 14:50:00 Protein Total 6.8 g/dL 11/29/22 13:21:00 Albumin Level 3.3 g/dL??Low 11/29/22 13:21:00 Globulin 3.5 11/29/22 13:21:00 A/G Ratio 0.9 11/29/22 13:21:00 Bilirubin Total 0.7 mg/dL 11/29/22 13:21:00 Anion Gap 5 11/29/22 22:33:00 Magnesium Level 2.3 mg/dL 11/29/22 14:50:00 Osmolality 261 mOsm/kg??Low 11/29/22 22:33:00 eGFR CKD-EPI 20 mL/min/1.73 m2??Low 11/29/22 22:33:00 CK 126 unit/L 11/29/22 22:33:00 U hCG Ql Negative 11/29/22 13:21:00 T4 Free 1.16 ng/dL??High 11/29/22 13:21:00 TSH 0.33 mIntlUnit/mL??Low 11/29/22 13:21:00 ? Hematology ? Event Name?? Event Result?? Date/Time?? WBC 11.5 K/mcL??High 11/29/22 13:21:00 RBC 3.84 Million/mcL??Low 11/29/22 13:21:00 Hgb 12.5 g/dL 11/29/22 13:21:00 Hct 35.2 %??Low 11/29/22 13:21:00 MCV 91.7 fL 11/29/22 13:21:00 MCH 32.6 pg??High 11/29/22 13:21:00 MCHC 35.5 g/dL 11/29/22 13:21:00 RDW-CV 12.6 % 11/29/22 13:21:00 Platelets 360 K/mcL 11/29/22 13:21:00 MPV 10.1 fL 11/29/22 13:21:00 Neutro Auto 80.9 %??High 11/29/22 13:21:00 Lymph Auto 11.1 %??Low 11/29/22 13:21:00 Terry Auto 7 % 11/29/22 13:21:00 Eos, Auto 0.4 % 11/29/22 13:21:00 Basophil Auto 0.3 % 11/29/22 13:21:00 Imm Gran Auto 0.3 % 11/29/22 13:21:00 Neutro Absolute 9.3 K/mcL??High 11/29/22 13:21:00 Lymph Absolute 1.3 K/mcL 11/29/22 13:21:00 Terry Absolute 0.8 K/mcL??High 11/29/22 13:21:00 Eos Absolute 0 K/mcL 11/29/22 13:21:00 Baso Absolute 0 K/mcL 11/29/22 13:21:00 Imm Gran Absolute 0.04 11/29/22 13:21:00 ? Urinalysis ? Event Name?? Event Result?? Date/Time?? Urine Srce Clean Catch 11/29/22 13:21:00 UA Color YELLOW. 11/29/22 13:21:00 UA Appear SL CLOUDY Abnormal 11/29/22 13:21:00 UA Glucose NEGATIVE 11/29/22 13:21:00 UA Bili NEGATIVE 11/29/22 13:21:00 UA Ketones NEGATIVE 11/29/22 13:21:00 UA Spec Grav 1.01 11/29/22 13:21:00 UA Blood LARGE Clinitek Abnormal 11/29/22 13:21:00 UA pH 5 11/29/22 13:21:00 UA Protein NEGATIVE 11/29/22 13:21:00 UA Urobilinogen 0.2 11/29/22 13:21:00 UA Nitrite NEGATIVE 11/29/22 13:21:00 UA Leuk Est TRACE Abnormal 11/29/22 13:21:00 UA Culture Ind?. Yes 11/29/22 13:21:00 UA WBC 4-6 Abnormal 11/29/22 13:21:00 UA RBC 4-6 Abnormal 11/29/22 13:21:00 UA Squam Epithelial 4-6 11/29/22 13:21:00 UA Bacteria 1+ Abnormal 11/29/22 13:21:00 ? Blood Gases ? Event Name?? Event Result?? Date/Time?? pH Jessee 7.49 pH unit(s)??High 11/29/22 22:33:00 pCO2 Jes[place] 32 mmHg??Low 11/29/22 22:33:00 HCO3 Venous 24.4 mmol/L 11/29/22 22:33:00 CO2 Total Venous 25.4 mmol/L 11/29/22 22:33:00 Base Excess Venous 1.7 11/29/22 22:33:00 ? All Other Results ? Event Name?? Event Result?? Date/Time?? Acetaminophen Level <10.0 11/29/22 13:21:00 Salicylate Level <4.0 11/29/22 13:21:00 Ethanol Level See Comment 11/29/22 13:21:00 Instr Ethanol Lvl <5 11/29/22 13:21:00 U Amph Scrn NEG 11/29/22 13:21:00 U Pau Scrn NEG 11/29/22 13:21:00 U Benzodia Scrn NEG 11/29/22 13:21:00 U Buprenorph Scr NEG 11/29/22 13:21:00 U Cocaine Scrn POS Abnormal 11/29/22 13:21:00 U TCA Scr NEG 11/29/22 13:21:00 U THC Scr POS Abnormal 11/29/22 13:21:00 U mAMP Scr NEG 11/29/22 13:21:00 U Methadone Scr NEG 11/29/22 13:21:00 U Opiate Scrn NEG 11/29/22 13:21:00 U Oxy Scrn NEG 11/29/22 13:21:00 U PCP Scrn NEG 11/29/22 13:21:00 U PPX Scr NEG 11/29/22 13:21:00 SARS-CoV-2 (COVID-19) PCR ([facility]) Neg[facility] 11/29/22 14:07:00 Employed in healthcare? No 11/29/22 14:07:00 Symptomatic as defined by CDC? No 11/29/22 14:07:00 Hospitalized due to COVID-19? No 11/29/22 14:07:00 In ICU? No 11/29/22 14:07:00 Group care resident? No 11/29/22 14:07:00 status? Not 11/29/22 14:07:00 ? Assessment/Plan 1.??Renal insufficiency??N28.9 Nephrology consult appreciated yesterday. ?? Agree with plan,??guidance. ??Was able to finally get CPK, no sign of rhabdo. ?? Cocaine induced??ATN,??current ATN including infectious??with??combination of prerenal, likely.?? Rocephin on board. urine culture no growth to date. Responding well to IV fluid.?? Creatinine??trending in the right direction. ?? Currently sodium bicarbonate with half-normal saline, will convert to??LR??when bicarbonate corrected. 2.??Cocaine abuse??F14.10 Her last dose was , no signs of detox. 3.??Bipolar disorder??F31.9 Maintain current regimen, renally dosed. 4.??Substance abuse??F19.10 [facility] will see the patient today. 5.??Mouth ulcers??K12.1 Lesions seem to be healing by themselves, may be related to valacyclovir although prophylactic dose, may be related to the fact that she is further away from most recent crack cocaine use. ??ENT??follow-up. 6.??Abnormal thyroid function test??R94.6 Minimal increase, in the setting of cocaine use, no sign of thyroid storm, numbers would not reflect that either. ??Can be repeated??later. 7.??Suicidal ideation??R45.851 [facility] will see the patient today, direct observation. ?? Time spent on patient care today is 40 minutes. Orders: cefTRIAXone, 1 g = 50 mL, IV Piggyback, Injection, every 24 hr (marcio) for 3 days, Antibiotic Indication Urinary Tract Infection, Administer over: 30 minutes, First Dose: 11/30/22 9:00:00 EDT, Stop Date: 12/03/22 8:59:00 EDT, Physician Stop, Routine, 100 mL/hr clonazePAM, 1.5 mg = 3 tab, Oral, Tab, TID, First Dose: 11/29/22 21:00:00 EDT, Routine cyproheptadine 4 mg oral tablet, 4 mg = 1 tab, Oral, Tab, BID, First Dose: 11/29/22 21:25:00 EDT, Physician Stop, Routine gabapentin, 300 mg = 1 cap, Oral, Cap, BID, First Dose: 11/29/22 21:00:00 EDT, Routine Latuda, 60 mg = 3 tab, Oral, Tab, every evening, First Dose: 11/29/22 18:00:00 EDT, Routine melatonin 3 mg oral tablet, 6 mg = 2 tab, Oral, Tab, every night at bedtime for 30 days, First Dose: 11/29/22 21:00:00 EDT, Stop Date: 12/29/22 20:59:00 EDT, Physician Stop, Routine montelukast, 10 mg = 1 tab, Oral, Tab, every evening, First Dose: 11/29/22 21:00:00 EDT, Routine Nicotine Patch Removal, 1 EA, TD, Misc, every 24 hr, First Dose: 12/01/22 11:00:00 EDT, Routine nicotine 14 mg/24 hr Transderm ER Film, 1 patches, TD, Film, every 24 hr, First Dose: 12/01/22 11:00:00 EDT, Routine prazosin, 2 mg = 2 cap, Oral, Cap, every night at bedtime, First Dose: 11/29/22 21:00:00 EDT, Routine senna 8.6 mg oral tablet, 8.6 mg = 1 tab, Oral, Tab, BID for 30 days, First Dose: 11/30/22 10:32:00EDT, Stop Date: 12/30/22 8:59:00 EDT, Physician Stop, Routine traZODone, 200 mg = 4 tab, Oral, Tab, every night at bedtime, First Dose: 11/29/22 21:00:00 EDT, Routine valACYclovir, 500 mg = 1 tab, Oral, Tab, Daily, Antibiotic Indication Other (specify in order comments), First Dose: 11/30/22 9:00:00 EDT, Routine Basic Metabolic Panel, Blood, Routine, 11/29/22 17:03:00 EDT, Daily, for 3 days, Lab Collect Consult to Dietitian Adult, 11/29/22 17:02:00 EDT, Reason for Consult Education Consult to Mental Health, Routine, suicidal ideation Creatinine Urine, Urine, Stat Collect, 11/29/22 17:03:00 EDT, Once, Nurse collect, Print Label Diet Order, 11/29/22 17:02:00 EDT, Renal, Safety precautions, vegan Intake and Output, 11/29/22 17:02:00 EDT, every 12 hr (marcio), q shift, 11/29/22 21:00:00 EDT Magnesium Level, Blood, Routine, 11/29/22 17:03:00 EDT, Daily, for 3 days, Lab Collect Patient Condition, 11/29/22 17:02:00 EDT, Condition Guarded Phosphorus Level, Blood, Routine, 11/29/22 17:03:00 EDT, Daily, for 3 days, Lab Collect PSO Admit to Inpatient, [facility], Inpatient, 11/29/22 16:59:00 EDT, 11/29/22 16:59:00 EDT, 11/29/22 16:59:00 EDT, Less than 96 hours Resuscitation Status, 11/29/22 17:02:00 EDT, Full Code Sodium Level Urine, Urine, Stat Collect, 11/29/22 17:02:00 EDT, Once, Nurse collect, Print Label Suicide Precautions, 11/29/22 19:06:00 EDT, Constant Order Up ad Cassia, 11/29/22 17:02:00 EDT, Constant Order, at nurse's discretion Vital Signs, 11/29/22 17:02:00 EDT, every 4 hr (marcio) Weight, 11/30/22 5:00:00 EDT, every 24 hr Electronically Signed on 11/30/22 10:48 AM Alcon Jacobo MD History and physical note * Alcon Jacobo MD: PERFORM, MODIFY, MODIFY Event Display: History and Physical Authored Date: [id number] LAURI LOGAN :1995 Age:27 years Sex:Female Visit Date:11/29/2022 Chief Complaint Im smoking crack and I want to pt reports SI w/o plan. Last used crack on . History of Present Illness This is a??27-year-old female who I am meeting for the first time.?? She has a past medical history??that includes??bipolar disorder. ??He has had multiple hospitalizations in the past, she has 8 hospitalizations??in the last 5 years. ?? She feels her medications help her with her danilo but her depression seems to breakthrough and has been the cause of most of her hospitalizations. ??She has had multiple suicide??thoughts and attempts in the past. ?? She also suffers from substance abuse. ??She??smokes crack cocaine. ??She says she does this in phases. ??She usually finds herself depressed afterwards??and sometimes at??lasting a phase as well. ?? She last used on and states that she has had??depression since.?? She has had suicidal thoughts including cutting herself??and came to the emergency room for such. ?? She does not eat and drink well in general she states. ??When she is using her highly depressed this is much more notable. ?? Thus,??when she is??receiving basic??clearance??laboratory values??for her??potential??consult with??psychiatry, she is noted to??have an elevated creatinine. ?? Only urinating 1-2 times a day. ??She denies any dysuria, frequency,??hesitancy. ??She denies any flank pain??but says she may have generalized lower back pain. ??She denies any??fevers??or??constitutional symptoms of infection. ?? Of note, she also??has ulcerations in her mouth that she took valacyclovir for??and felt that they went away. ??She has been taking prophylactic valacyclovir but now feels her ulcers??are similar??and are??back. ?? The hospitalist service is called for admission. Review of Systems Constitutional: Depression, mild appetite ENT: Mouth sores. Respiratory:??No shortness of breath, cough Cardiovascular: No chest pain or palpitations. Gastrointestinal: No GI symptoms. Genitourinary:??The patient denies any dysuria, hematuria, frequency, hesitancy, or flank pain. Musculoskeletal:??No back pain, neck pain, joint pain, muscle pain, decreased range of motion Neurologic:??Alert & oriented X 4 Physical Exam Vitals & Measurements T:??36.9?C ??(Temporal Artery)?? HR:??98??(Peripheral)?? RR:??16?? BP:??113/77?? SpO2:??99%?? HT:??163.000??cm?? WT:??58.97??kg??(Estimated)?? O2 Flow Rate:??0?? General: Pleasant, .?? HENT:??Ulcers in the area of the lower lip that look like aphthous ulcers, 1 mildly scab. ??Area under the tongue??that also looks like ulceration to be with some notable whiteness. Lungs:??Clear to auscultation and percussion, non-labored respiration.?? Heart:??Normal rate, regular rhythm, no murmur, gallop or edema. Abdomen: Benign abdominal exam in all 9 quadrants,??no flank pain..?? Musculoskeletal:??Normal range of motion and strength, no tenderness or swelling. Skin:??Skin is warm, dry and pink, no rashes or lesions. Neurologic:??Awake, alert and oriented X4, CN I-XII intact Assessment/Plan 1.??Renal insufficiency??N28.9 There are many potential reasons??for??her elevated creatinine. ?? This may be as simple as prerenal although unlikely at her age.?? Hydration, recheck creatinine which is already going in the right direction. ??Urine sodium??and urine creatinine. ??Intakes and output need to be strict. ?? Avoid all nephrotoxic agents and dose??all medications renally.?She denies any use of??nephrotoxic agents??before admission. ?? Crack cocaine certainly can play a role here. ??Either directly??by??inducing ATN??or even indirectly by inducing??rhabdomyolysis.?? Urine studies, monitor??urine, monitor intake and output. ??Check creatinine kinase. ?? Urinalysis is mildly positive as well with a positive leuk esterase and this could certainly??cause ATN be a causation.?? Consideration of??dosing of Rocephin. 2.??Cocaine abuse??F14.10 The Patient will be seen by [facility] tomorrow. ??Her last cocaine use was on I do not anticipate signs??of aggressive detoxification as the patient??stated??she only used??shortly and it has been 4 days. ??Will monitor nonetheless for signs of such. 3.??Bipolar disorder??F31.9 Maintain the patient's??current regimen.?? Some medications will need to be renally dosed and then??titrated as her??kidney function improves. 4.??Substance abuse??F19.10 [facility] will evaluate the patient. 5.??Mouth ulcers??K12.1 HIV test pending. ??These ulcers??may be related to herpes, unlikely HIV. ??I am not sure biopsy isneeded but certainly an ENT referral is needed. ??Crack cocaine??use needs to be considered as well. 6.??Abnormal thyroid function test??R94.6 Only mild in the setting of cocaine use.?? FT4 is barely elevated fortunately. ??No signs of thyroid storm??at this level but will monitor for symptoms, can be repeated??at another time. 7.??Suicidal ideation??R45.851 Direct observation, [facility] consult. ?? Time spent in patient care today is 60 minutes. Orders: clonazePAM, 1.5 mg = 3 tab, Oral, Tab, TID, First Dose: 11/29/22 21:00:00 EDT, Routine gabapentin, 300 mg, Oral, Tab, BID, First Dose: 11/29/22 21:00:00 EDT, Routine Latuda, 60 mg = 3 tab, Oral, Tab, every evening, First Dose: 11/29/22 21:00:00 EDT, Routine melatonin 3 mg oral tablet, 6 mg = 2 tab, Oral, Tab, every night at bedtime for 30 days, First Dose: 11/29/22 21:00:00 EDT, Stop Date: 12/29/22 20:59:00 EDT, Physician Stop, Routine montelukast, 10 mg = 1 tab, Oral, Tab, every evening, First Dose: 11/29/22 21:00:00 EDT, Routine prazosin, 2 mg = 2 cap, Oral, Cap, every night at bedtime, First Dose: 11/29/22 21:00:00 EDT, Routine Sodium Chloride 0.9% 1,000 mL, Total Volume (mL): 1,000, 1,000 mL, Soln-IV, IV, 125 mL/hr, Start Date: 11/29/22 17:04:00 EDT, 58.97 kg, Populate Charting Weight From Order, 1.63, m2 traZODone, 200 mg = 4 tab, Oral, Tab, every night at bedtime, First Dose: 11/29/22 21:00:00 EDT, Routine valACYclovir, 500 mg = 1 tab, Oral, Tab, Daily, Antibiotic Indication Other (specify in order comments), First Dose: 11/30/22 9:00:00 EDT, Routine Basic Metabolic Panel, Blood, Routine, 11/29/22 17:03:00 EDT, Daily, for 3 days, Lab Collect Consult to Dietitian Adult, 11/29/22 17:02:00 EDT, Reason for Consult Education Consult to Mental Health, Routine, suicidal ideation Creatine Kinase, Blood, Add On, 11/29/22 17:02:00 EDT, Once, Nurse collect Creatinine Urine, Urine, Stat Collect, 11/29/22 17:03:00 EDT, Once, Nurse collect, Print Label Diet Order, 11/29/22 17:02:00 EDT, Custom (See Special Instructions), renal Intake and Output, 11/29/22 17:02:00 EDT, every 12 hr (marcio), q shift, 11/29/22 21:00:00 EDT Magnesium Level, Blood, Routine, 11/29/22 17:03:00 EDT, Daily, for 3 days, Lab Collect Magnesium Level, Blood, Add On, 11/29/22 17:29:00 EDT, Once, Lab Collect Occupational Therapy Evaluation and Treatment Acute, 11/29/22 17:02:00 EDT, Once Patient Condition, 11/29/22 17:02:00 EDT, Condition Guarded Phosphorus Level, Blood, Add On, 11/29/22 17:02:00 EDT, Once, Lab Collect Phosphorus Level, Blood, Routine, 11/29/22 17:03:00 EDT, Daily, for 3 days, Lab Collect Physical Therapy Evaluation and Treatment, 11/29/22 17:02:00 EDT, Once PSO Admit to Inpatient, [facility], Inpatient, 11/29/22 16:59:00 EDT, 11/29/22 16:59:00 EDT, 11/29/22 16:59:00 EDT, Less than 96 hours Resuscitation Status, 11/29/22 17:02:00 EDT, Full Code Sodium Level Urine, Urine, Stat Collect, 11/29/22 17:02:00 EDT, Once, Nurse collect, Print Label Up ad Cassia, 11/29/22 17:02:00 EDT, Constant Order, at nurse's discretion Vital Signs, 11/29/22 17:02:00 EDT, every 4 hr (marcio) Weight, 11/30/22 5:00:00 EDT, every 24 hr Problem List/Past Medical History Ongoing No qualifying data Historical No qualifying data Medications Inpatient clonazePAM, 1.5 mg= 3 tab, Oral, TID gabapentin, 300 mg, Oral, BID Latuda, 60 mg= 3 tab, Oral, every evening melatonin 3 mg oral tablet, 6 mg= 2 tab, Oral, every night at bedtime montelukast, 10 mg= 1 tab, Oral, every evening nicotine 21 mg/24 hr Transderm ER Film, 1 patches, TD, every 24 hr Nicotine Patch Removal, 1 EA, TD, every 24 hr prazosin, 2 mg= 2 cap, Oral, every night at bedtime Sodium Chloride 0.9% 1,000 mL, 1000 mL, IV traZODone, 200 mg= 4 tab, Oral, every night at bedtime valACYclovir, 500 mg= 1 tab, Oral, Daily Home cetirizine cetirizine 10 mg oral tablet, 10 mg= 1 tab, Oral, Daily, PRN clonazePAM 0.5 mg oral tablet, 1.5 mg, Oral, TID cyproheptadine 4 mg oral tablet, 4 mg= 1 tab, Oral, BID Flax Seed Oil oral capsule, 1200 mg, Oral, Daily gabapentin 800 mg oral tablet, 800 mg= 1 tab, Oral, TID Latuda 120 mg oral tablet, 200 mg, Oral, every evening magnesium oxide 250 mg oral tablet, 250 mg= 1 tab, Oral, Daily Melatonin 3 mg oral tablet, 6 mg= 2 tab, Oral, every night at bedtime montelukast 10 mg oral tablet, 10 mg= 1 tab, Oral, every evening prazosin 1 mg oral capsule, 2 mg, Oral, every night at bedtime traZODone 100 mg oral tablet, 300 mg, Oral, every night at bedtime valACYclovir 1 g oral tablet, 1 g= 1 tab, Oral, Daily Allergies Latex Wellbutrin codeine penicillin sulfa drugs Social History Electronic Cigarette/Vaping Electronic Cigarette Use: Use, within last 90 days. Tobacco Never tobacco user Tobacco Use:. Electronically Signed on 11/30/22 10:37 AM Alcon Jacobo MD Discharge summary * Corey Gallegos MD: PERFORM Event Display: Discharge Summary Authored Date: [id number] LAURI LOGAN :1995 Age:27 years Sex:Female Visit Date:11/29/2022 Hospital Course female came in positive for cocaine and THC with suicidal thoughts found to have??acute??kidney injury which resolved rapidly likely from prerenal azotemia??she had some mild electrolyte??deficiencies which??were improved??and no longer need to be checked. ??See details below Physical Exam Vitals & Measurements T:??36.4?C ??(Temporal Artery)?? TMIN:??36.4?C ??(Temporal Artery)?? TMAX:??36.9?C ??(Temporal Artery)?? HR:??90??(Peripheral)?? RR:??18?? BP:??115/74?? SpO2:??97%?? Pain Score:??0?? O2 Therapy:??Room air?? General:??Alert and oriented, well nourished, No acute distress Eye:??PERRL, EOMI, normal conjunctiva Lungs:??Clear to auscultation and percussion, Non-labored respiration Heart:??Normal rate, Normal rhythm, No murmur, No gallop Abdomen:??Soft, non-tender, non-distended, normal bowel sounds, no masses Medications Inpatient acetaminophen, 1000 mg= 2 tab, Oral, every 6 hr, PRN clonazePAM, 1.5 mg= 3 tab, Oral, TID cyproheptadine 4 mg oral tablet, 4 mg= 1 tab, Oral, BID gabapentin, 800 mg= 2 cap, Oral, TID Latuda, 60 mg= 3 tab, Oral, every evening melatonin 3 mg oral tablet, 6 mg= 2 tab, Oral, every night at bedtime montelukast, 10 mg= 1 tab, Oral, every evening nicotine 2 mg oral transmucosal gum, 2 mg= 1 EA, Transmucosal, every 2 hr, PRN nicotine 21 mg/24 hr Transderm ER Film, 1 patches, TD, every morning Nicotine Patch Removal, 1 EA, TD, every morning prazosin, 2 mg= 2 cap, Oral, every night at bedtime senna 8.6 mg oral tablet, 8.6 mg= 1 tab, Oral, BID traZODone, 300 mg= 6 tab, Oral, every night at bedtime valACYclovir, 500 mg= 1 tab, Oral, Daily Home cetirizine 10 mg oral tablet, 10 mg= 1 tab, Oral, every morning clonazePAM, 1.5 mg, Oral, TID cyproheptadine 4 mg oral tablet, 8 mg= 2 tab, Oral, BID Flax Seed Oil oral capsule, 1200 mg, Oral, Daily gabapentin 800 mg oral tablet, 800 mg= 1 tab, Oral, TID Latuda, 200 mg, Oral, With Evening Meal magnesium oxide 250 mg oral tablet, 250 mg= 1 tab, Oral, every evening Melatonin 3 mg oral tablet, 6 mg= 2 tab, Oral, every night at bedtime montelukast 10 mg oral tablet, 10 mg= 1 tab, Oral, every evening multivitamin adult, oral tablet, 1 tab, Oral, Daily prazosin 1 mg oral capsule, 2 mg, Oral, every night at bedtime traZODone 100 mg oral tablet, 300 mg, Oral, every night at bedtime valACYclovir 1 g oral tablet, 1 g= 1 tab, Oral, every morning Social History Electronic Cigarette/Vaping Electronic Cigarette Use: Use, within last 90 days. Tobacco Never tobacco user Tobacco Use:. Discharge Plan 1.??Renal insufficiency??N28.9 Creatinine was 4 on admission??and with IV fluids downtrend to 1.2??and she was making great urine the entire time??given the rapid resolution this favors prerenal azotemia.?? She had slightly low magnesium potassium??with a potassium of 1.7 with 2 g ordered today??and I??potassium of 3.1 with 60 mEq taken today??an hour after dosing??was already up to 3.3.?? The creatinine and electrolytes??do not need??immediate rechecking??provided she is??continuing to eat which she has right now.?? These can be checked on a as needed basis or even on an outpatient??standpoint Ordered: Transfer to Another Facility, 12/01/22 16:36:00 EDT ?? 2.??Cocaine abuse??F14.10 Ordered: Transfer to Another Facility, 12/01/22 16:36:00 EDT ?? 3.??Bipolar disorder??F31.9 We did continue her home meds??which include benzodiazepines, Latuda, gabapentin, prazosin at night Ordered: Transfer to Another Facility, 12/01/22 16:36:00 EDT ?? 4.??Substance abuse??F19.10 Ordered: Transfer to Another Facility, 12/01/22 16:36:00 EDT ?? 5.??Suicidal ideation??R45.851 Ordered: Transfer to Another Facility, 12/01/22 16:36:00 EDT ?? Orders: gabapentin, 800 mg = 2 cap, Oral, Cap, TID, First Dose: 12/01/22 15:00:00 EDT, Routine traZODone, 300 mg = 6 tab, Oral, Tab, every night at bedtime for 30 days, First Dose: 12/01/22 21:00:00 EDT, Stop Date: 12/31/22 20:59:00 EDT, Physician Stop, Routine CV Electrocardiogram 12 Lead, 12/01/22 12:46:00 EDT, Routine, Reason: Other (please specify), Frequency Once Stop date and time 12/01/22 12:46:00 EDT, Requested by Radha Condon, ORD_SET_REQ_DT_RANGE, [facility] Internal Person Id All Diagnoses This Visit Renal insufficiency Cocaine abuse Bipolar disorder Substance abuse Suicidal ideation Medication Reconciliation Changed cetirizine (cetirizine 10 mg oral tablet)1 tab Oral (given by mouth) every morning. ?? clonazePAM1.5 Milligrams Oral (given by mouth) 3 times a day. takes 1 mg and 0.5 mg tabs. ?? cyproheptadine (cyproheptadine 4 mg oral tablet)2 tab Oral (given by mouth) 2 times a day. ?? lurasidone (Latuda)200 Milligrams Oral (given by mouth) With Evening Meal. takes 120 mg and 80 mg tabs. ?? magnesium oxide (magnesium oxide 250 mg oral tablet)1 tab Oral (given by mouth) every evening. ?? melatonin (Melatonin 3 mg oral tablet)2 tab Oral (given by mouth) every night at bedtime. ?? prazosin (prazosin 1 mg oral capsule)2 Milligrams Oral (given by mouth) every night at bedtime. ?? valACYclovir (valACYclovir 1 g oral tablet)1 tab Oral (given by mouth) every morning. ?? Unchanged flax (Flax Seed Oil oral capsule)1,200 Milligrams Oral (given by mouth) every day. ?? gabapentin (gabapentin 800 mg oral tablet)1 tab Oral (given by mouth) 3 times a day. ?? montelukast (montelukast 10 mg oral tablet)1 tab Oral (given by mouth) every evening. ?? multivitamin (multivitamin adult, oral tablet)1 tab Oral (given by mouth) every day. Alive! multivitamin. ?? traZODone (traZODone 100 mg oral tablet)300 Milligrams Oral (given by mouth) every night at bedtime. Electronically Signed on 12/01/22 04:40 PM Corey Gallegos MD CT Abdomen and Pelvis WO contrast * Saroj Wick MD: VERIFY, VERIFY Event Display: Report PROCEDURE INFORMATION: Exam: CT Abdomen And Pelvis Without Contrast Exam date and time: 11/29/2022 2:30 PM Age: 27 years old Clinical indication: Abdominal pain; Flank; Left; Additional info: Flank pain/stone TECHNIQUE: Imaging protocol: Computed tomography of the abdomen and pelvis without contrast. Radiation optimization: All CT scans at this facility use at least one of these dose optimization techniques: automated exposure control; mA and/or kV adjustment per patient size (includes targeted exams where dose is matched to clinical indication); or iterative reconstruction. REPORTING DATA: Count of CT and Cardiac NM exams in prior 12 months: This patient has received 0 known CTs and 0 known cardiac nuclear medicine studies in the 12 months prior to the current study. COMPARISON: US ABDOMINAL COMPLETE 07/01/2017 9:11 AM FINDINGS: Limitations: Evaluation for solid parenchymal lesions is suboptimal on this examination due to lack of intravenous contrast. Liver: Normal. No mass. Gallbladder and bile ducts: Normal. No calcified stones. No ductal dilation. Pancreas: Normal. No ductal dilation. Spleen: Normal. No splenomegaly. Adrenal glands: Normal. No mass. Kidneys and ureters: See Reproductive finding. Stomach and bowel: No evidence of bowel obstruction or significant bowel wall thickening. Appendix: No evidence of appendicitis. Intraperitoneal space: Unremarkable. No free air. No significant fluid collection. Vasculature: Unremarkable. No abdominal aortic aneurysm. Lymph nodes: Unremarkable. No enlarged lymph nodes. Urinary bladder: Unremarkable as visualized. No bladder calculi. Reproductive: An IUD is in place within a retroverted uterus.No stones identified within either kidney or along the course of either ureter. There is no evidence of hydronephrosis or hydroureter. Bones/joints: Unremarkable. No acute fracture. Soft tissues: Unremarkable. IMPRESSION: No acute findings. No renal/ureteral calculi or hydronephrosis. THIS DOCUMENT HAS BEEN ELECTRONICALLY SIGNED BY SAROJ WICK MD on 11/29/2022 03:50 PM Final Signed by: Saroj Wick MD Signed (Electronic Signature): 11/29/2022 3:50 pm Patient Care team information Care Team Personnel Name: Nisha Morse MD Position: Physician Member Role: ED Physician Address: Address: [address] [place] [address] Name: Katherine Olivier Position: Nurse Member Role: ED Nurse
--- OUTSIDE RECORDS SUMMARY | 2024-09-22 15:33 | XMS_ITS | Encounter Summary ---
Author Organization [facility] Address [address] [place] [address] Care Team Providers Care Patent Solicitor Name Role Phone Marlee Alvarez NP Primary Care Provider [phone] [facility] Internal [facility], [place] Primary Care Provi denver Encounter Details Date Type Department Care Team (Late st Contact Info) Description 12/21/2023 Lab Requisition [facility] Pathology & Laboratory Medicine - [facility] [address] [place] [address] Rosa M Elena MD [address] [place] [phone] Encounter for other general examination Social History [...] Date/Time Associated Diagnosis Comments PAP TEST Today 12/17/2023 11:00 EDT Encounter for other general examination documented in this encounter Results * PAP TEST (12/17/2023 11:00 EDT) Specimens A. Cervix and/or Endocervix , ThinPrep Imaging System with Manual Evaluation 12/27/2023 14:28 [facility] Specimen Adequacy Satisfactory for Evaluation - transformation zone component present 12/27/2023 14:28 [facility] General Categorization Epithelial Cell Abnormality 12/27/2023 14:28 [facility] Descriptive Diagnosis Squamous Cell Abnormality - Atypical squamous cells, cannot exclude high grade squamous intraepithelial lesion (ASC-H). Shift in bautista present suggestive of bacterial vaginosis. 12/27/2023 14:28 [facility] Educational Comments [facility] recommends following the ASCCP's management guidelines which may be found at www.asccp.org 12/27/2023 14:28 [facility] Attestation By the signature below, the attending physician certifies that they have personally conducted a gross and/or microscopic examination of the described specimens and rendered or confirmed the above diagnosis. 12/27/2023 14:28 [facility] at 1428 Clinical History See below 12/27/19 14:28 [facility] Performing Lab [facility] 12/27/2023 14:28 [facility] Scanned Images 12/27/2023 14:28 [facility] Pap Test CERVIX UTERI STRUCTURE / Unknown 12/17/2023 11:00 EDT 12/21/2023 10:34 EDT us Rosa M Elena MD PATHOLOGY ORDERABLES Final Res ult [facility] [address] [place] [address] documented in this encounter Visit Diagnoses Diagnosis Encounter for other general examination documented in this encounter Care Teams Patent Solicitor Relationship Specialty Start Date End Date Marlee Alvarez NP PCP - General 08/27/20 02/01/24 [facility], [facility] [address], [place] [address] PCP - General 02/02/24 documented as of this encounter
--- OUTSIDE RECORDS SUMMARY | 2024-09-22 15:33 | XMS_ITS | Encounter Summary ---
Author Organization [facility] Address [address] [place] [address] Care Team Providers Care Ophthalmic Medical Technician Name Role Phone Marlee Alvarez NP Primary Care Provider [phone] [facility] Internal Medicine, [place] Primary Care Provi den[place] Encounter Details Date Type Department Care Team (Late st Contact Info) Description 08/27/2020 Lab Requisition [facility] Pathology & Laboratory Medicine - [address] [id number] Outr Resulting Lab, Provider Social History Tobacco [...] Comments CHLAMYDIA/N. GONORRHOEAE AMPLIFIED NUCLEIC ACID Routine 08/27/2020 13:45 EST documented in this encounter Results * CHLAMYDIA/N. GONORRHOEAE AMPLIFIED RNA (08/27/2020 13:45 EST) Neisseria gonorrhoeae Result Negative Negative 08/28/2020 13:21 EST [facility] Chlamydia trachomatis Result Negative Negative 08/28/2020 13:21 EST [facility] Swab ENTIRE ENDOCERVIX / Unknown 08/27/2020 13:45 EST 08/27/2020 22:27 EST us Provider Outr Resulting Lab MICROBIOLOGY - GENER AL ORDERABLES Final Result [facility] [address] [place] [address] documented in this encounter Visit Diagnoses Not on filedocumented in this encounter Care Teams Ophthalmic Medical Technician Relationship Specialty Start Date End Date Marlee Alvarez, ALYSSA PCP - General 08/27/20 02/01/24 [facility] [place] [address] [place] [address] PCP - General 02/02/24 documented as of this encounter
--- OUTSIDE RECORDS SUMMARY | 2024-09-22 15:33 | XMS_ITS | Encounter Summary ---
Author Organization [facility] Address [address] [place] [address] Care Team Providers Care Salvationist Name Role Phone Unknown, Provider Primary Care Provider Marlee Avila [employer] SPECIALIST Primary Care Provider [phone] [facility] Internal Medicine, [place] Primary Care Provi den[place] Encounter Details Date Type Department Care Team (Late st Contact Info) Description 03/04/2020 Lab Requisition [facility] Pathology & Laboratory Medicine - [facility] [address] [place], [place] [id number] Outr Resulting Lab, Provider Social History Tobacco [...] Procedure Name Priority Date/Time Associated Diagnosis Comments ZZCOVID-19 TEST [facility] PCR Today 03/04/2020 13:21 EDT COVID-19 TESTING Routine 03/04/2020 13:2 1 EDT documented in this encounter Results * COVID-19 TEST [facility] PCR (03/04/2020 13:21 EDT) Swab ENTIRE NASOPHARYNX / Unknown 03/04/2020 13:21 EDT 03/04/2020 20:25 EDT us Provider Outr Resulting Lab MICROBIOLOGY - GENER AL ORDERABLES Final Result Performing Organization Address [facility] [address]/[facility] de Phone Number [facility] [address] [place] [address] * COVID-19 TESTING (03/04/2020 13:21 EDT) COVID-19 rt-PCR Result Negative Negative 03/05/2020 0:25 EDT [facility] Comment: This test has not been FDA cleared or approved. This test has been authorized by FDA under an EUA for use by authorized laboratories. This test has been authorized only for detection of nucleic acid from 2019-nCoV, not for any other viruses or pathogens. This test is only authorized for the duration of the declaration that circumstances exist justifying the authorization of emergency use of in vitro diagnostic tests for detection and/or diagnosis of 2019-nCoV under section 564(b)(1) of Act, 21 U.S.C ?? 360bbb-3(b) (1), unless the authorization is terminated or revoked sooner. Negative results do not preclude 2019-nCoV infection and should not be used as the sole basis for treatment or other patient management decisions. Negative results must be combined with clinical observations, patient history, and epidemiological information. Performed on the IntroBridgeher Fusion instrument Performing Lab [place] [facility] Lab 03/05/2020 0:25 EDT [facility] Swab 03/04/2020 13:2 1 EDT 03/04/2020 20:25 EDT Provider Outr Resulting Lab MICROBIOLOGY - GENER AL ORDERABLES Final Result Performing Organization Address [facility] [address]/[facility] Co de Phone Number [facility] [address] [place] [address] documented in this encounter Visit Diagnoses Not on filedocumented in this encounter Care Teams Salvationist Relationship Specialty Start Date End Date Unknown, Provider, PCP - General 07/06/17 08/26/20 Marlee Alvarez NP PCP - General 08/27/20 02/01/24 [facility] Internal [facility], [place] [address] [place] [address] PCP - General 02/02/24 documented as of this encounter
--- OUTSIDE RECORDS SUMMARY | 2024-09-22 15:33 | XMS_ITS | Encounter Summary ---
Author Organization [facility] Address [address] [place] [address] Care Team Providers Care Press Box Custodian Name Role Phone Marlee Alvarez NP Primary Care Provider [phone] [facility] Internal Medicine, [place] Primary Care Provi [place] Encounter Details Date Type Department Care Team (Late st Contact Info) Description 09/22/2021 Lab Requisition [facility] Pathology & Laboratory Medicine - [facility] [address] [place], [place] [address] Outr Resulting Lab, Provider Social History Tobacco [...] Comments CHLAMYDIA/N. GONORRHOEAE AMPLIFIED NUCLEIC ACID Routine 09/22/2021 10:30 EST documented in this encounter Results * CHLAMYDIA/N. GONORRHOEAE AMPLIFIED RNA (09/22/2021 10:30 EST) Neisseria gonorrhoeae Result Negative Negative 09/23/2021 15:00 EST [facility] Chlamydia trachomatis Result Negative Negative 09/23/2021 15:00 EST [facility] Swab ENTIRE ENDOCERVIX / Unknown 09/22/2021 10:30 EST 09/22/2021 21:30 EST us Provider Outr Resulting Lab MICROBIOLOGY - GENER AL ORDERABLES Final Result [facility] [address] [place] [address] documented in this encounter Visit Diagnoses Not on filedocumented in this encounter Care Teams Press Box Custodian Relationship Specialty Start Date End Date Marlee Alvarez, SENIOR ADMINISTRATIVE ASSOCIATE PCP - General 08/27/20 02/01/24 [facility] [place] [address] [place] [address] PCP - General 02/02/24 documented as of this encounter
--- OUTSIDE RECORDS SUMMARY | 2024-09-22 15:33 | XMS_ITS | Encounter Summary ---
Author Organization [facility] Address [address] [place] [address] Care Team Providers Care On Call Pharmacy Technician Name Role Phone Marlee Alvarez NP Primary Care Provider [phone] [facility] [place] Encounter Details Date Type Department Care Team (Late st Contact Info) Description 08/28/2020 Lab Requisition [facility] Pathology & Laboratory Medicine - [address] [address] Malathi Davis, [facility] [address] [place] [phone] Encounter for other general examination Social [...] Date/Time Associated Diagnosis Comments PAP TEST Today 08/27/2020 13:45 EST Encounter for other general examination documented in this encounter Results * PAP TEST (08/27/2020 13:45 EST) Specimens A. Cervix and/or Endocervix , ThinPrep Imaging System with Manual Evaluation 09/04/2020 12:59 [facility] Specimen Adequacy Satisfactory for Evaluation - transformation zone component present 09/04/2020 12:59 [facility] General Categorization Epithelial Cell Abnormality 09/04/2020 12:59 [facility] Descriptive Diagnosis Squamous Cell Abnormality - Low grade squamous intraepithelial lesion (LSIL). Shift in bautista present suggestive of bacterial vaginosis. 09/04/2020 12:59 [facility] Educational Comments [facility] recommends following ASCCP's 2012 Updated Consensus Guidelines for the Management of Abnormal Cervical Cancer Screening Tests and Cancer Precursors (JLGTD, 2013; 17(5):S1-S27). Consensus guidelines are available online at www.asccp.org. 09/04/2020 12:59 [facility] Attestation By the signature below, the attending physician certifies that they have personally conducted a gross and/or microscopic examination of the described specimens and rendered or confirmed the above diagnosis. 09/04/2020 12:59 [facility] at 1259 Clinical History See below 09/04/20 12:59 [facility] Performing Lab [facility] 09/04/2020 12:59 [facility] Scanned Images 09/04/2020 12:59 [facility] Papanicolaou smear specimen (specimen) CERVIX UTERI STRUCTURE / Unknown 08/27/2020 13:45 EST 08/28/2020 13:35 EST us Malathi Davis HOSPITALITY COORDINATOR PATHOLOGY ORDERABLES Final R esult [facility] [address] [place] [address] documented in this encounter Visit Diagnoses Diagnosis Encounter for other general examination documented in this encounter Care Teams On Call Pharmacy Technician Relationship Specialty Start Date End Date Marlee Alvarez NP PCP - General 08/27/20 02/01/24 [facility] [address] [place] [address] PCP - General 02/02/24 documented as of this encounter
--- OUTSIDE RECORDS SUMMARY | 2024-09-22 15:34 | XMS_ITS | Encounter Summary ---
Author Organization [facility] Address [address] [place] [address] Care Team Providers Care District Sales Representative Name Role Phone Rosalba Zimmerman MD Primary Care Provider + Encounter Details Date Type Department Care Team (Late st Contact Info) Description 07/01/2017 Results Only [facility] [phone] Luis Daniel Roberson MD [address] [place] [address], [place] [phone] Social History Tobacco Use Types Packs/Day Years [...] Priority Date/Time Associated Diagnosis Comments SURGICAL PATHOLOGY Routine 07/01/2017 15 :41 EDT documented in this encounter Results * SURGICAL PATHOLOGY (07/01/2017 15:41 EDT) Pathology Report: SURGICAL PATHOLOGY REPORT Reports generated via electronic interface contain original data; however they are lacking the format of the original report. Caution should be taken when reading/interpretin g unformatted reports. Name: ? EDNA LOGAN ? Accession #: ? [id number] ? : ? 1995 (Age: 22) ??F ? Collect Date: ? 07/01/2017 ? Location: ? [facility] ? Receive Date: ? 07/02/2017 ? Provider: LUIS DANIEL ROBERSON MD Copy to: ? Final Pathologic Diagnosis: A. DUODENUM, 2ND PORTION, BIOPSY: - ??Duodenal mucosa with no specific pathologic features. B. STOMACH, ANTRUM, BIOPSY: - ??Mild chronic gastritis. - ??Immunohistochemic al staining for Helicobacter pylori is negative. C. ESOPHAGUS, DISTAL, BIOPSY: - ??Squamous mucosa with mild reactive changes. Comment: ANTIBODY(CLONE)(BLO CK):RESULT H PYLORI (Rabbit Monoclonal (SP48), [place]) (B1): Negative. NOTE: ??One or more of the reagents used in immunoperoxidase testing in this case may not have been cleared or approved by the U.S. Food and Drug Administration (FDA). ??The FDA has determined that such clearance or approval is not necessary. ??These tests are used for clinical purposes. ??They should not be regarded as investigational or for research. ??These reagents' performance characteristics have been determined by [facility]. ??The positive and negative controls worked appropriately. If immunoperoxidase staining has been performed on alcohol fixed cytology specimens, which has not been fully validated, the assays should be interpreted with caution and correlated with clinical data. ??This laboratory is certified under the Clinical Laboratory Improvement Amendments of 1988 (CLIA-88) as qualified to perform high complexity clinical laboratory testing. Document reviewed and electronically signed by: SARAH DAY MD Report ??Date: 07/07/2017 13:00 By the signature above, the attending physician certifies that he/she has personally conducted a gross and/or microscopic examination of the described specimens and rendered or confirmed the above diagnosis. Specimen(s) Received: A. ??2nd portion bx B. ??Antrum bx C. ??Distal esophagus bx Clinical History: Reflux, abd pain; clinical diagnosis code: ??K21.9 Gross Description: A. ?Received in formalin labelled with proper patient identification (initials W, A) and 2nd portion bx are four light jesus tissues (0.7 x 0.1 x 0.1 cm to 0.2 x 0.1 x 0.1 cm). Entirely submitted in A1 and A2. B. ?Received in formalin labelled with proper patient identification (initials W, A) and antrum bx is a single white tissue fragment (0.5 x 0.1 x 0.1 cm). Submitted intact in B1. C. ?Received in formalin labelled with proper patient identification (initials W, A) and distal esophagus bx are three white tissues (0.4 x 0.2 x 0.1 cm, 0.3 x 0.2 x 0.1 cm and 0.2 x 0.1 x 0.1 cm). Entirely submitted in C1. Mihrab Ali 07/02/2017 4:15 PM End of Report [facility] 07/01/2017 15:4 1 EDT 07/02/2017 15:41 EDT us Luis Daniel Roberson MD PATHOLOGY ORDERABLES Final Res ult [facility] [address] [place] [address] documented in this encounter Visit Diagnoses Not on filedocumented in this encounter Care Teams District Sales Representative Relationship Specialty Start Date End Date Rosalba Zimmerman MD PCP - General 03/27/15 07/05/17 documented as of this encounter
--- OUTSIDE RECORDS SUMMARY | 2024-09-22 15:34 | XMS_ITS | Encounter Summary ---
Author Organization [facility] Address [address] [place] [address] Care Team Providers Care Shaft Mechanic Name Role Phone Rosalba Zimmerman MD Primary Care Provider + Encounter Details Date Type Department Care Team (Latest Contact Info) Description 07/01/2017 9:54 EDT - 07/01/2017 23:59 EDT Hospital Encounter [address] [address] Unknown, Provider, MD Discharge Disposition: Home or Self Care Social History Tobacco Use Types Packs/Day Years Used Date Smoking Tobacco: Never Assessed Comments Unknown Sex and Gender Information Value Date Recorded Sex Assigned at Not on file Legal Sex Female 20:05 EDT Gender Identity Not on file Sexual Orientation Not on file documented as of this encounter Discharge Disposition Disposition Code Departure Means Destination Home or Self [facility] documented in this encounter Plan of Treatment Not on file documented as of this encounter Visit Diagnoses Not on filedocumented in this encounter Care Teams Shaft Mechanic Relationship Specialty Start Date End Date Rosalba Zimmerman MD PCP - General 03/27/15 07/05/17 documented as of this encounter
--- OUTSIDE RECORDS SUMMARY | 2024-09-22 15:34 | XMS_ITS | Clinical Summary ---
Author Organization [facility] Address [facility] [place] [address] Care Team Providers Care Spray Drier Name Role Phone Nikky Jaycob Angelita MACKEY Primary Care Provider [phone] Allergies Active Allergy Reactions Criticality Noted Date Comments Bupropion Rash Medium 11/26/2014 Medications Medication Sig Dispensed Refills Start Date End Date Status levonorgestrel-ethin yl estradiol (AVIANE;ALESSE;LESSI NA) 0.1-20 mg-mcg TabletIndications:pr egnancy contraception Take 1 tablet by mouth daily. 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 Social History Tobacco Use Types Packs/Day Years Used Date Smoking Tobacco: Never Assessed Sex and Gender Information Value Date Recorded Sex Assigned at Not on file Gender Identity Not on file Sexual Orientation Not on file Last Filed Vital Signs Vital Sign Reading Time Taken Comments Blood Pressure 143/78 11/26/2014 1:41 PM EDT Pulse 117 11/26/2014 1:41 PM EDT Temperature - - Respiratory Rate - - Oxygen Saturation - - Inhaled Oxygen Concentration - - Weight 57.3 kg (126 lb 6.4 oz) 11/26/2014 1:41 P M EDT Height 164.5 cm (5' 4.75) 11/26/2014 1:41 PM ED T Body Mass Index 21.2 11/26/2014 1:41 PM EDT Plan of Treatment Health Maintenance Due Date Last Done Comments HIV screen 2014 Hepatitis C Screening 2014 Hepatitis B vaccine (0-59 yrs) (1) 2015 Tetanus/Diphtheria/Pertussis Vaccines (1 - Tdap) 06/22 PAP Smear 2017 Covid-19 Vaccine (1 - 2023-25 season) 2024 Influenza (Flu) vaccine (1 o f 1 - Influenza standard series) 05/14/2024 Care Teams Spray Drier Relationship Specialty Start Date End Date Jaycob Sher DO [address] [place] [address] PCP - General Family Medicine 06/03/17
--- OUTSIDE RECORDS SUMMARY | 2024-09-22 15:34 | XMS_ITS | Encounter Summary ---
Author Organization [facility] Address [address] [place] [address] Care Team Providers Care Teletypewriter Installer Name Role Phone Rosalba Zimmerman MD Primary Care Provider + Encounter Details Date Type Department Care Team (Latest Contact Info) Description 03/27/2015 17:40 EDT - 03/27/2015 23:59 EDT Hospital Encounter [address] [address] Unknown, Provider, MD Discharge Disposition: Home or [...] Code Departure Means Destination Home or Self Longterm documented in this encounter Plan of Treatment Not on file documented as of this encounter Visit Diagnoses Not on filedocumented in this encounter Care Teams Teletypewriter Installer Relationship Specialty Start Date End Date Rosalba Zimmerman MD PCP - General 03/27/15 07/05/17 documented as of this encounter
--- OUTSIDE RECORDS SUMMARY | 2024-09-22 15:34 | XMS_ITS | Encounter Summary ---
Author Organization [facility] Address [facility] [place] [address] Care Team Providers Care Refrigerated Company Driver Name Role Phone Merced Conti MD Primary Care Provider [phone] Reason for Visit * Reason Comments Depression Encounter Details Date Type Department Care Team (Late st Contact Info) Description 11/26/2014 12:20 PM EDT Office Visit Psychiatry [place] [id number] Yas Carreon MD Major depressive disorder, single episode, moderate degree (Primary Dx); Social anxiety disorder Social History Tobacco Use Types Packs/Day Years Used Date Smoking Tobacco: Never Assessed Sex and Gender Information Value Date Recorded Sex Assigned at Not on file Gender Identity Not on file Sexual Orientation Not on file documented as of this encounter Last Filed Vital Signs Vital Sign Reading [...] Mass Index 21.2 11/26/2014 1:41 PM EDT Body Mass Index Percentile 47.52% 11/26/2014 1:4 1 PM EDT Growth Chart: [facility] (Girls, 2- 20 Years) documented in this encounter Progress Notes * Geremias Jeong MD - 11/28/2014 3:33 PM EDT I have examined this patient, reviewed the records and discussed the case in detail with the Dr. Carreon. I agree with the findings, diagnoses and plan as described in her note. * Yas Carreon MD - 11/26/2014 12:12 PM EDT Mood Disorders Service - Department of Psychiatry Summary of Evaluation and Recommendations Date of Evaluation: 11/26/2014 Patient Name: Edna Melgar Date of : 1995 This patient was seen and discussed with teaching faculty Dr. Matt Jeong. Please see his note for additional details. IDENTIFYING DATA: Edna Melgar (: 1995) was referred by Rosalba Zimmerman MD for evaluation of major depression. HISTORY OF PRESENT ILLNESS: Edna Melgar is a 19 y.o. female with history of major depression, social anxiety, and cannabis dependence who presents for evaluation due to lack of improvement in depression symptoms despite several medication trials with SSRIs, SNRI and wellbutrin (either lacked effectiveness or caused side effects), and psychotherapy for several months. Edna endorses her depression started out at a mild severity about age 16 and has not resolved since then. She feels it has been worse since February of 2014, but no specific trigger at that time. Mood as been gradually worsening since then. Feels more depressed when alone. Has lots of negative thoughts such as she is fat, or hates herself. Feels this idea of being too fat starting sophomore year of high school. Also had a boyfriend that said she should lost weight. Tries to hide more and stay home, but no change in eating or exercise. No big changes in her weight lately. No seasonal variation tomood. Hard to fall asleep, toss and turns often. Often feels fatigued. Lacks motivation to get things done and doesn't enjoy many things. She states Getting out of bed is the hardest thing Goes to bed 3-4am, then wakes up at 6am for school. Slept a lot more on medical leave because could sleep later inthe morning. Feels guilty for being depressed or like a burden. Has hopelessness but no suicidal thoughts or violent thoughts. Impaired concentration and memory due to ruminating thoughts and lack ofsleep. Her levels of depression and anxiety making it hard to go to school and have led to medical leave from school for one month (went back to school 2 weeks ago). Has lots of social anxiety and hard timekeeping friends due to being sad all the time. She believes kids at school just feel she wants attention. Feels self concious and like she is being judged. She endorses being less stressed when on medical leave due to not having to be anxious at school and getting more sleep. She denies worrying about many other things except for worries that are socially related. Ruminating thoughts and negativethinking are common. She has had a panic attack before, which she attributes to side effect of effexor (happened 1 hour after took effexor). She denies agoraphobia, obsessions and compulsions. Feels most comfortable at her friends house and tries to spend some time there daily if possible. Has a small group of friends, but doesn't like to burden them with her feelings. Relationship with mom has been tense since she got more depressed. Edna feels her mom gets mad at her for being depressed. Feels like she doesn't have a support system from her family. Not close with her sister Nia,or her parents. Has been going to therapy, which she likes her therapist, and feels she can talk with her. Uses marijuana daily to help with negative thinking and insomnia, mostly at her friend's house. Usewas intermittent before got very depressed and increased to daily use after February of 2014 when she noticed it helpful her social anxiety and insomnia. Denies paranoia or other adverse effects from thecannabis use. Denies other drug or alcohol use. Danilo: denies episodes of sustained euphoria, grandiosity or irritability, decreased need for sleep, racing thoughts, distractability, hypersexuality, excessive talkativeness, risk taking behavior, SI/Safety: denies suicidal thoughts, intent, or plan; past history of suicide attempts, cutting/self mutilation. HI/violence: denies thoughts of violence, past history of violence Psychosis: denies hallucinations, delusions, paranoia, ideas of reference, delusions, thought insertion Trauma: denies exposure to trauma, abuse/neglect in childhood, trauma related nightmares or flashbacks, intrusive thoughts, hypervigilance, avoidance Denies history binge eating, not eating, excessive exercising, use of laxative etc to lose weight, PSYCHOMETRICS: Patient did not complete REVIEW OF SYSTEMS: General: Denies fever, chills, nightsweats. + fatigue, diaphoresis Eyes: Denies blurry vision, diplopia ENT: Denies changes in hearing, congestion, sore throat, dental pain Cardiovascular: Denies chest pain/pressure or palpitations Respiratory: Denies SOB, cough GI: Denies dysphagia, abd pain, , N/V/C/D, bloody stool : Denies dysuria, itching, hesitation, menorrhagia, Musculoskeletal: Denies arthralgias, myalgias Endocrine: Denies polyuria, cold or heat intolerance Neuro: Denies numbness or tingling, weakness, vertigo, ataxia, headache Hem/Lymph: Denies new lumps or bumps Skin: Denies rash or concerning lesions, no pruritis Allergy/Immuno: Psychiatric: See above PAST PSYCHIATRIC HISTORY Prior diagnoses: major depression, THC use disorder (mild) Hospitalizations: None Outpatient Tx: Psychotherapy with Ivana Coronel since Jun 2014 Suicide Attempts: No history of self harm or suicidal ideation. Prior Medication Trials: ?? Fluoxetine 10mg daily -nausea, diarrhea - took for for 1 month ?? Sertraline 50mg daily - nausea, diarrhea - took for for 1 month ?? Fluvoxamine 100mg daily ?? Bupropion - 300mg daily, hives, facial swelling ?? Escitalopram 20 mg daily - nausea ?? Citalopram 20mg daily -?Sedation ?? Venlafaxine 37.5mg - increased anxiety within 1 hour of taking it. Prior ECT: Denies. Substance Use History: Alcohol: Has Tried alcohol in the past. Drinks of rare occasions with her family Nicotine: Non-smoker Illicits: Currently uses marijuana multiples times per day, which helps mood and anxiety. Has not tried other drug including opiates, stimulants, hallucinogens, etc. Treatment: None PAST MEDICAL HISTORY No past medical history on file. ALLERGIES: Allergies Allergen Reactions ??? Wellbutrin [Bupropion] Rash CURRENT MEDICATIONS: Outpatient Encounter Prescriptions as of 11/26/2014 Medication Sig Dispense Refill ??? levonorgestrel-ethinyl estradiol (AVIANE;ALESSE;LESSINA) 0.1-20 mg-mcg Tablet Take 1 tablet by mouth daily. Indications: Contraception No facility-administered encounter medications on file as of 11/26/2014. FAMILY HISTORY: Depression in an Maternal Aunt Schizophrenia in an Maternal Uncle Alcohol abuse and drug abuse in Uncle and cousins Stoke in an Aunt SOCIAL HISTORY: (Substance Use listed above). Edna was born in [facility]. She was raised in [place], [place] and [facility]. Currently lives with her mother and 16 yo sister. Her father lives in [place]. She is not close with her parents or 16 yo sister Nia. 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 She recently took a 1 month medical leave from school, but she will still graduate on time. She enjoys photography and would like to study this in college, but has no firm plans for after high schoo. No known complications with her . VITALS: Filed Vitals: 11/26/14 1341 BP: 143/78 Pulse: 117 Height: 164.5 cm (5' 4.75) Weight: 57.335 kg (126 lb 6.4 oz) Wt Readings from Last 3 Encounters: 11/26/14 57.335 kg (126 lb 6.4 oz) (52.91 %*) * Growth percentiles are based on CDC 2-20 Years data. MENTAL STATUS EXAM: * Appearance: Edna appears approximately documented age. Slender, causally dressed. Grooming and hygiene are good. Motor/Behavior: No psychomotor aberrations. She is calm and cooperative with the interview process. Eye Contact: Appropriate/good. * Speech: Normal rate, rhythm, and tone. Coherent. * Language: Fluent Dutch. No neologisms. * Mood: depressed anxious & Affect: Mood-congruent. Appropriate to topics discussed. Appropriate range and intensity. No lability. * Thought Process: Linear, logical, and goal-directed. * Associations: Normal, tight * Thought Content: No abnormal perceptions expressed during interview. SI/HI/: Denies Hallucinations: Denies AVH. No overt signs of responding to internal stimuli. Delusions: Denies. None evident. Obsessions: Denies. None evident. * Orientation: Person, place, date, and situation. * Attn. & Conc: Sustained. Able to follow conversation adequately and without requiring significant redirection. Cognition: Grossly within normal limits, by conversation. * Memory: Grossly intact; able to recall personal history adequately. * Fund of Knowledge: Appropriate to degree of education. * Insight: Good. & Judgement: Good. LABORATORY VALUES: None recent in the [facility] system. IMPRESSIONS Edna Melgar is a 19 y.o. female with major depression (moderate), social anxiety, and cannabis dependence who presents for evaluation due to lack of improvement in depression symptoms despite several medication trials with SSRIs, SNRI and wellbutrin due to inability to tolerate these medications because of side effects. Ms. Melgar's history and exam seems consistent with her prior diagnoses. We discussed with Edna that many of the side effects she has experienced with antidepressants are likely to go away with time, but since she seems to be especially sensitive to and worried about side effects then a different titration method might be required. We described using liquid formulations of SSRIs such as prozac, zoloft, citalopram etc starting at very low (basically homeopathic doses) and then gradually uptitrating from there with goal of getting to therapeutic range dose over time. Side effects at such low doses would be highly unlikely to be due to the medication itself and more likely a ttributed to patient's expectations and worries about medication treatment. The dose could then be gradually titrated up to allow for adjusment mentally and physically to the dose. SSRIs are likely to have the least side effects and a good change of improving both depression and anxiety symptoms. We did discuss other antidepressant classes of medications, which have greater risks and side effect burden, but could also be considered see below for details about specific medications. Ms. Melgar was most interested in the MAO-I class of medications given her reported sensitivity to sedating effectsof medications, despite her difficulty sleeping. Augmentation of antidepressant medications could also be considered, especially to help with anxiety (e.g. Buspirone) or energy level (liothyronine inlow dose). Antidepressant alternatives to consider (if SSRI low and slow titration not successful) : - Mirtazapine which can increases levels of serotonin and norepinephrine through a mechanism differents than Serotonin-Norepinephrine Reuptake Inhibitor medications for help with depression and anxiety, plus it can help increase appetite and decrease insomnia (via anti-histamine effects), though the patient endorses being sensitive to sedating effects. Mirtazapine is less likely to cause nausea, diarrhea, but may cause constipation or dry mouth. Lower doses of mirtazapine are more sedating thanhigher doses. Does not come as a liquid - Serotonin-Norepinephrine Reuptake Inhibitor such as duloxetine could be tried, though the patientreports having a panic attack with venlafaxine. It is not clear that venlafaxine caused the panic attack and duloxetine may not cause the same effect Increased blood pressure should be monitored for. - Tricyclic antidepressants such as desipramine or nortriptyline would have more noradrenergic activity than antidepressants, and thus could potentially be more beneficial for depression, anxiety. Desipramine or nortriptyline have lower risk of anticholinergic side effects than amitriptyline, imipramine, though per the patient's report she is sensitive to sedating effects. - Monoamine oxidase inhibitor(MAO-I) such as selegeline or tranylcypromine would affect serotonin, norepinephrine and dopamine levels. Selegeline has fewer drug interactions and the patch form in lower dose (6mg) does not require adherence to a tyramine restricted diet. Tranylcypromine (Parnate) has a with a structure similar to amphetamine and thus has some stimulant like properties that may help with fatigue in addition to depression and anxiety. All types of sympathomimetics and psychostimulants (including OTC products such as decongestants and other cold products, migraine medications, weight loss products) are contraindicated for use in patients receiving monoamine oxidase inhibitors (MAOIs), activity should be stopped at least 2 weeks before starting MAO-I, 5 weeks for those on fluoxetine, to minimize risk of serotonin syndrome and hypertensive crisis. Oral use of MAO-Is and transdermal use of selegeline >6mg/24hrs requires a tyramine restricted diet. Additive hypotensive effects may be seen when MAOIs are combined with medications that effect the blood pressure. - Newer antidepressants such as vortioxetine (Brintellix) or Viibryd (vilazodone) could also be tried, given their mechanism of action is similar to, but not exactly the same as SSRIs though these medications are less likely to be covered by the patient's insurance and do not come in liquid formulation. Could also consider many augmentation options to add to antidepressant regimen if patient is able to achieve partial response with an antidepressant: - Liothyronine (T3) is commonly used for augmentation, may provide a boost to energy, - Buspirone can be effective for augmentation and helpful for anxiety, especially at higher doses, and is usually well tolerated if effective. Buspirone also has some serotinergic like properties andthus monitoring for any symptoms of serotonin syndrome is warranted. - Bellamy is commonly used for refractory depression, can decrease suicidality over the chcf, is not hepatically metabolized and thus has fewer interactions. However, lithium can have many side effects and would have to be cautious with medications that can increase lithium level such as NSAIDs, diuretics. Bellamy also has some serotinergic like properties and thus monitoring for any symptoms of serotonin syndrome is warranted when used in combination with antidepressants. - Atypical antipsychotics such as abilify, seroquel, olanzapine can be used for augmentation. Abilify would be less likely to cause worsening of metabolic status compared to Seroquel or other atypicals. Would also obtain EKG to monitor for QTc prolongation. Monitoring for extrapyramidal effects (dyskinesia, dystonia, parkinsonism, akathisia) is warranted. Akathisia has been reported with antidepressant use, is most likely to occur within the first few weeks of treatment, and dose increases may exacerbate the symptom (unpleasant restlessness and need to move). - TMS could be considered, though it is less effective in resistant depression, not readily coveredby insurance and would be logistically difficult, but has the advantage of being without drug interactions. - ECT could be considered, but would be more indicated if the patient in acute episode of depression and is not as helpful in chronic depressed/partial remission. It would also be logistically difficult for the patient given where he/she currently lives. RECOMMENDATIONS: 1. Try to get to therapeutic dose of SSRI using liquid formulation, starting at very low dose (basically homeopathic) to help manage patient's expectations and anxiety about medications. For example,start with sertraline liquid formulation at 5mg PO daily and increase by 10mg every 1-2 weeks or prozac starting at 2mg daily and increasing by 2-4mg every 1-2 weeks. Reassure patient that she is unli rayo to have side effects at these low doses and symptoms experienced may be physical manifestations of anxiety. 2. Complete screening labs for other causes of depression symptoms if they have not already been done, including thyroid panel, B12, folate, CBC, CMP, iron studies and urine drug screen 3. Recommend continuation of psychotherapy using CBT or other evidenced based therapy. Would also strongly consider family therapy that might help communication and relationships within the family for patient and her family members. 4. Sleep hygiene was briefly discussed with the patient and handout was given 5. Psychiatric consequences of cannabis use are unclear to date as there is no good evidence of a cannabis induced mood disorder, but it is certainly reasonable to consider trial of discontinuation of cannabis to see if this helps improve mood over time. 6. Other antidepressant classes of medications discuss, which have greater irsks and side effect burden, which could also be considered. Try one of the following options sequentially in approximatelythe following order if the previous suggestion is not effective. Dose ranges are given as suggestions, but doses should be increased only as needed/tolerated. Higher doses are sometimes needed in treatment resistant depression for a response, with close monitoring for adverse/side effects: 1. Vilazodone starting at 5mg daily and titrating up to 40mg daily 2. Mirtazapine starting at 7.5mg nightly, titrating up to 45mg nightly 3. Vortioxetine starting at 5mg daily, titrating up to 20mg daily 4. Duloxetine starting at 10mg daily and titrating up gradually to max dose of 120mg daily. 5. Tricyclic antidepressant such as desipramine or nortriptyline starting at 5- 10mg daily (low dosegiven patient's sensitivity), titrating up to 200mg in single of divided doses 6. MAO-I antidepressant such a tranylcypromine starting at 5mg BID and titrating up to 30mg BID. Selegeline patch starting at 6 mg/24 hr applied transdermally once daily. Max dose is 12mg/24hrs, would titrate up no faster than 3mg every 2 weeks. Tyramine restricted diet is required. 7. For medication regimen augmentation try adding on one of the following options sequentially in approximately the following order if the previous suggestion is not effective. Dose ranges are given as suggestions, but doses should increased only as needed/tolerated. Higher doses are sometimes needed in treatment resistant depression for a response, with close monitoring for adverse/side effects. 1. Liothyronin (T3) starting at 5mcg, up to 100mcg, for help with mood and energy 2. Buspirone starting at 5mg BID and titrating up to 30 mg BID for help with mood and anxiety 3. Abilify 1mg daily or nightly (comes in a liquid), titrating up to 20mg daily, would get EKG onceon a stable dose 4. Bellamy starting at 150mg nightly and titrating up to 600mg BID as long as dose that does not exceed therapeutic range (dose does not need to be therapeutic and would aim for blood level <1.0 given patient has no history of danilo). Thank you for this interesting consultation. Yas Carreon MD documented in this encounter Plan of Treatment Not on file documented as of this encounter Visit Diagnoses Diagnosis Major depressive disorder, single episode, moderate degree- Primary Major depressive disorder, single episode, moderate Social anxiety disorder Social phobia documented in this encounter Care Teams Refrigerated Company Driver Relationship Specialty Start Date End Date Merced Conti MD [facility] [address] [place] [address] PCP - General 05/30/12 06/02/17 documented as of this encounter
--- OUTSIDE RECORDS SUMMARY | 2024-09-22 15:34 | XMS_ITS | Encounter Summary ---
Author Organization [facility] Address [address] [place] [address] Care Team Providers Care Health Plan Specialist Name Role Phone Unknown, Provider Primary Care Provider Unava ilable Encounter Details Date Type Department Care Team (Late st Contact Info) Description 03/23/2015 Results Only [facility] [phone] Silvina Swann, [address] [place], [place] [id number] Social History Tobacco Use Types Packs/Day Years [...] Date/Time Associated Diagnosis Comments SURGICAL PATHOLOGY Routine 03/23/2015 20 :06 EDT documented in this encounter Results * SURGICAL PATHOLOGY (03/23/2015 20:06 EDT) Pathology Report: SURGICAL PATHOLOGY REPORT Reports generated via electronic interface contain original data; however they are lacking the format of the original report. Caution should be taken when reading/interpret ing unformatted reports. Name: ? EDNA LOGAN ? Accession #: ? [id number] ? : ? 1995 (Age: 19) ??F ? Collect Date: ? 03/23/2015 ? Location: ? [facility] ? Receive Date: ? 03/25/2015 ? Provider: SILVINA SWANN DO Copy to: ? Final Pathologic Diagnosis: A. TONSIL, RIGHT, TONSILLECTOMY: - ??Tonsillar tissue with acute and chronic inflammation and reactive lymphoid follicular hyperplasia. B. TONSIL, LEFT, TONSILLECTOMY: - ??Tonsillar tissue with: - ??Focal accumulation of inflammatory debris consistent with abscess. - ??Reactive lymphoid follicular hyperplasia. - ??Portions of salivary gland and skeletal muscle. Document reviewed and electronically signed by: Luís Jara MD Report ??Date: 03/27/2015 17:10 By the signature above, the attending physician certifies that he/she has personally conducted a gross and/or microscopic examination of the described specimens and rendered or confirmed the above diagnosis. Specimen(s) Received: A. ??Right tonsil B. ??Left tonsil Clinical History: L peritonsillar abscess Gross Description: A. ?Received in formalin labelled with proper patient identification (initials W, A) and right tonsil is a fragment palatine tonsil (2.2 x 2.0 x 1.1 cm) as well as two jesus-white tissues (1.4 x 0.5 x 0.2 cm and 1.5 x 0.9 x 0.4 cm). ??The mucosa is smooth, glistening and slightly cryptic. ??Serial sections reveal lobular homogeneous tissue without abnormality. One hospital insurance representative section of the tonsil as well as the two fragmented pieces is submitted in A1. B. ?Received in formalin labelled with proper patient identification (initials W, A) and left tonsil is a moderately fragmented palatine tonsil (3.0 x 1.8 x 0.8 cm). ??The mucosa is jesus-pink and smooth. Three hospital insurance representative sections are submitted as B1. Rolanda Carlisle 03/26/2015 8:25 AM End of Report [facility] 03/23/2015 20:0 6 EDT 03/25/2015 20:06 EDT us Silvina Swann DO PATHOLOGY ORDERABLES Fi nal Result [facility] [address] [place] [address] documented in this encounter Visit Diagnoses Not on filedocumented in this encounter Care Teams Health Plan Specialist Relationship Specialty Start Date End Date Unknown, Provider, PCP - General 03/25/15 03/26/15 documented as of this encounter
--- OUTSIDE RECORDS SUMMARY | 2024-09-22 15:34 | XMS_ITS | Encounter Summary ---
Author Organization [facility] Address [address] [place] [address] Care Team Providers Care Resident Care Associate Name Role Phone Unknown, Provider Primary Care Provider Unava ilable Encounter Details Date Type Department Care Team (Late st Contact Info) Description 03/26/[address] [facility]- [facility] [phone] Lakhwinder Coulter, DO [address] [place] [address] [address] [place], [place] [id number] Social History Tobacco Use Types Packs/Day Years [...] Procedure Name Priority Date/Time Associated Diagnosis Comments IDENTIFY ANAEROBE Routine 03/26/2015 16: 24 EDT documented in this encounter Results * IDENTIFY ANAEROBE (03/26/2015 16:24 EDT) Result FUSOBACTERIUM NECROPHORUM 03/28/2015 11:19 EDT [facility] PERITONSILLAR ABSCESS / Unknown 03/26/2015 16:24 EDT 03/26/2015 16:24 EDT Lakhwinder Coulter DO MICROBIOLOGY - GENERAL ORDERABLES Final Result [facility] [address] [place] [address] documented in this encounter Visit Diagnoses Not on filedocumented in this encounter Care Teams Resident Care Associate Relationship Specialty Start Date End Date Unknown, Provider, PCP - General 03/25/15 03/26/15 documented as of this encounter
--- OUTSIDE RECORDS SUMMARY | 2024-09-22 15:34 | XMS_ITS | Encounter Summary ---
Author Organization [facility] Address [facility] [place] [address] Care Team Providers Care Dampproofer Name Role Phone Monica Garcia MD Primary Care Provider [phone] Reason for Visit * Reason Comments Skin Check Encounter Details Date Type Department Care Team (Latest Contact Info) Description 05/27/2012 10:00 AM [place] [address] Yas Charles MD [facility] [place] [address] Telangiectasia (Primary Dx) Discharge Disposition: Home Social History Tobacco Use Types Packs/Day Years Used Date Smoking Tobacco: Never Assessed Sex and Gender Information Value Date Recorded Sex Assigned at Not on file Gender Identity Not on file Sexual Orientation Not on file documented as of this encounter Progress Notes * Yas Charles MD - 05/27/2012 10:02 AM EDT DERMATOLOGY CONSULT NOTE Date of service: 05/27/2012 Edna Melgar : 1995 Provider: Yas Charles MD PROBLEM:Spot on the nose The patient is seen at the request of Monica Garcia , who instructed the patient to be seen for evaluation of above HPI Edna is a 16 y.o. female here with a red spot on the tip of the nose for the past year .She admitsto having popped a pimple and since has had a red spot which she does not like. FH: neg for skin cancer ADR: Review of patient's allergies indicates not on file. MEDS: No current outpatient prescriptions on file prior to encounter. ROS General: feeling well Skin: denies other skin complaints EXAM General: NAD, pleasant, cooperative Skin: Focused exam of the face Significant skin findings: A. Single vessel on nasal tip ASSESSMENT/PLAN: A. Vessel- epilation B. 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
--- OUTSIDE RECORDS SUMMARY | 2024-09-22 15:34 | XMS_ITS | Encounter Summary ---
Author Organization [facility] Address [facility] [place] [address] Care Team Providers Care Residential Driver Name Role Phone Merced Conti MD Primary Care Provider [phone] Encounter Details Date Type Department Care Team (Late st Contact Info) Description 11/07/2014 Telephone Psychiatry [place] [phone] Marcela Kaur RN Social History Tobacco Use Types Packs/Day Years Used Date Smoking Tobacco: Never Assessed Sex and Gender Information Value Date Recorded Sex Assigned at Not on file Gender Identity Not on file Sexual Orientation Not on file documented as of this encounter Miscellaneous Notes * Telephone Encounter - Marcela Kaur RN - 11/21/2014 10:01 AM EDT At 10:01 AM on 11/21/14 this credit underwriter called this pt's mother at [phone] (H) as follow up to not having received 2 paged medication history form in preparation for upcoming [facility] appt 11/26 (M) at 1:00 PM. Edna's mothers said she just faxed this form to doctor's office and requested they fill it out. This credit underwriter gave her this credit underwriter's fax ([phone]) and phone ([phone]) numbers. She said will will try to get this completed form faxed back to this credit underwriter today. * Telephone Encounter - Marcela Kaur RN - 11/07/2014 3:57 PM EST At 10:28 AM on 11/07/[address] Santamaria's office called and said she would relay the information (that this pt has an appt with Dr. Carreon in the [facility] on 11/26. From: Marcela Kaur Sent: Friday, November 07, 2014 9:25 AM To: Marcela Kaur Subject: RE: ARW RE: referral to [facility] Hi Dr. Zimmerman, Apparently my attempts to respond to your email last week were unsuccessful. I just left a voice with Dr. Santamaria's MATessie letting her know this pt is scheduled to see Mimi Carreon 11/26. Please feel free to call me ([phone]) if I can be of further assistance. Respectfully, Patsy --- Originally sent by [email or web address] on Oct 29, 2014 3:11 PM --- This message was sent securely using [employer]. Eben Garner, We communicated with one another about 3 weeks ago regarding a patient of mine here in [place] who I wished to refer to the [facility]. She reports to me that she received and returned the packet that was sent to her in the mail, but does not yet have an appointment. After a frustratingweek of attempting to find voluntary inpatient care for her without success, I promised I would find out when she might be seeing your team at [facility] so that we could make some appropriate next outpatient steps. Please let me know if an appt has been or can be scheduled for her. Her name is Edna MelgarAYAKA 89. I look forward to hearing from you soon. Sincerely, Rosalba Zimmerman MD documented in this encounter Plan of Treatment Not on file documented as of this encounter Visit Diagnoses Not on filedocumented in this encounter Care Teams Residential Driver Relationship Specialty Start Date End Date Merced Conti MD [facility] [address] [place] [address] PCP - General 05/30/12 06/02/17 documented as of this encounter
--- OUTSIDE RECORDS SUMMARY | 2024-09-22 15:34 | XMS_ITS | Encounter Summary ---
Author Organization [facility] Address [address] [place] [address] Care Team Providers Care Merchandise Flow Team Leader Name Role Phone Unknown, Provider Primary Care Provider Unava ilable Encounter Details Date Type Department Care Team (Late st Contact Info) Description 03/30/2018 Historical Results Only [facility] - Main [address] [address] Alverto Vasquez MD [address] [place] [phone] Social History Tobacco Use Types Packs/Day Years [...] Procedure Name Priority Date/Time Associated Diagnosis Comments URINALYSIS/COMPLETE - [facility] Routine 03/30/2018 18:00 EDT DRUG SCREEN, PRESCRIPTION/OTC, URINE Routine 03/30/2018 18:00 EDT BACTERIAL CULTURE, URINE Routine 03/30/2018 18:00 EDT ETHYL ALCOHOL - [facility] Routine 03/30/2018 17:53 EDT COMPLETE BLOOD COUNT WITH DIFFERENTIAL (AUTO) Routine 03/30/2018 17:53 EDT THYROID CASCADE Routine 03/30/2018 17:53 EDT MAGNESIUM Routine 03/30/2018 17:53 EDT ACETAMINOPHEN Routine 03/30/2018 17:53 EDT COMPREHENSIVE METABOLIC PANEL (CMP) Routine 03/30/2018 17:53 EDT documented in this encounter Results * BACTERIAL CULTURE, URINE (03/30/2018 18:00 EDT) Pathologist [facility] USUAL UROGENITAL BARBARA - [facility] UUV 04/01/2018 11:04 EDT [facility] CitrateConcentration 10,000-1 00,000 CFU/ML 04/01/2018 11:04 EDT [facility] 03/30/2018 18:0 0 EDT 03/30/2018 18:42 EDT Comment:VOID us Alverto Vasquez MD MICROBIOLOGY - GENERAL ORDER MARIE Final Result [facility] * URINALYSIS/COMPLETE - [facility] (03/30/2018 18:00 EDT) Pathologist [facility] URINE APPEARANCE - [facility] Clear CLEAR 03/30/2018 18:20 EDT [facility] URINE BACTERIA - [facility] RARE 03/30/2018 18:42 EDT [facility] URINE BILIRUBIN - DIPSTICK - [facility] Negative NEGATIVE 03/30/2018 18:20 EDT [facility] URINE BLOOD - [facility] Negative NEG 03/30/2018 18:20 EDT [facility] URINE COLOR - [facility] Yellow YELLOW 03/30/2018 18:20 EDT [facility] URINE GLUCOSE - DIPSTICK - [facility] Negative NEGATIVE 03/30/2018 18:20 EDT [facility] URINE KETONE - [facility] Negative NEGATIVE 03/30/2018 18:20 EDT [facility] URINE LEUK ESTERASE - [facility] Trace NEG 03/30/2018 18:20 EDT [facility] URINE NITRITE - DIPSTICK - [facility] Negative NEG 03/30/2018 18:20 EDT [facility] URINE PH - [facility] 6.5 4.0 - 8.0 8 18:20 EDT [facility] URINE PROTEIN - DIPSTICK - [facility] Negative NEG 03/30/2018 18:20 EDT [facility] URINE RBC - [facility] NEG rbc/hpf 03/30/20 18 18:42 EDT [facility] URCULTIF+? - [facility] Culture Ordered 03/30/2018 18:42 EDT [facility] URINE SPECIFIC GRAVITY - [facility] <=1.005 1.001 - 1.035 03/30/2018 18:20 EDT [facility] URINE SQUAMOUS CELLS - [facility] FEW NEG #/hpf 03/30/2018 18:42 EDT [facility] URINE UROBILINOGEN - DIPSTICK - [facility] 0.2 0.2 - 1.0 03/30/2018 18:20 EDT [facility] URINE WBC - [facility] RARE NEG wbc/hpf 018 18:42 EDT [facility] 03/30/2018 18:0 0 EDT 03/30/2018 18:11 EDT us Alverto Vasquez MD CHEMISTRY & BLOOD GAS ORDERA BLES Final Result [facility] * (ABNORMAL) DRUG SCREEN, PRESCRIPTION/OTC, URINE (03/30/2018 18:00 EDT) AMPHETAMINES NEG NEG 03/30/2018 18:30 EDT [facility] BARBITURATES,UR - [facility] NEG NEG 03/30/2018 18:30 EDT [facility] BENZODIAZEPINES POS(A) NEG 8 18:30 EDT [facility] COCAINE,URINE - [facility] NEG NEG 03/30/2018 18:30 EDT [facility] MAMP (METHAMPHETAMINES - [facility] NEG NEG 03/30/2018 18:30 EDT [facility] MARIJUANA,URINE - [facility] POS(A) NEG 03/30/2018 18:30 EDT [facility] MTD (METHADONE) - [facility] NEG NEG 03/30/2018 18:30 EDT [facility] OPIATES,URINE - [facility] NEG NEG 03/30/2018 [facility]OX[facility] - [facility] NEG NEG 03/30/2018 [facility] PCP (PHENCYCLIDINE) - [facility] NEG NEG 03/30/2018 [facility] PROPOXYPHENE (PPX) - [facility] NEG NEG 03/30/2018 18:30 [facility] TRICYCLIC ANTIDEPRESSANTS - [facility] NEG NEG 03/30/2018 18:30 EDT [facility] Comment: Drug Class ?Cutoff Concentration Amphetamines (AMP) ?500 ng/ml Barbiturates (BAR) ?200 ng/ml Benzodiazepines (BZO) ? 150 ng/ml Cocaine (WAQAS) ? 150 ng/ml Methamphetamine (mAMP) ?500 ng/ml Methadone (MTD) ? 200 ng/ml Opiates (OPI) ? 100 ng/ml Oxycodone (OXY) ? 100 ng/ml Phencyclidine (PCP) ?25 ng/ml Tetrahydrocannabinol (THC) ? 50 ng/ml Propoxyphene (PPX) ?300 ng/ml Tricyclic antidepressants (TCA) ? 300 ng/ml This is a screening assay only, intended for use in clinical monitoring or management of patients. False positive or false negative results can occur. If confirmation testing is needed, please call the lab. Specimens are retained in the laboratory for 7 days. 03/30/2018 18:0 0 EDT 03/30/2018 18:11 EDT us Alverto Vasquez MD URINALYSIS ORDERABLES Final Result Performing Organization Address [facility] Co de Phone Number [facility] * MAGNESIUM (03/30/2018 17:53 EDT) Pathologist [facility] Magnesium 2.30 1.7 - 2.8 mg/dL 03/30/2018 18:21 EDT [facility] 03/30/2018 17:5 3 EDT 03/30/2018 17:57 EDT us Alverto Vasquez MD CHEMISTRY & BLOOD GAS ORDERA BLES Final Result Performing Organization Address [facility] de Phone Number [facility] * ETHYL ALCOHOL - [facility] (03/30/2018 17:53 EDT) [facility] ETHYL ALCOHOL - [facility] <10.0 <10 mg/dL 03/30/2018 18:21 EDT [facility] 03/30/2018 17:5 3 EDT 03/30/2018 17:57 EDT us Alverto Vasquez MD CHEMISTRY & BLOOD GAS ORDERA BLES Final Result Performing Organization Address [facility] Co de Phone Number [facility] * COMPREHENSIVE METABOLIC PANEL (CMP) (03/30/2018 17:53 EDT) Pathologist [facility] Albumin % 4.0 3.4 - 4.9 g/dL 03/30/2018 18:21 EDT [facility] ALKALINE PHOSPHATASE - [facility] 82 38 - 126 U/L 03/30/2018 18:21 [facility] BILIRUBIN TOTAL 0.3 0.2 - 1.3 mg/dL 03/30/2018 18:21 [facility] BUN - [facility] 10 10 - 26 mg/dL 03/30/2018 18:21 [facility] CALCIUM - [facility] 9.3 8.5 - 10.5 mg/dL 03/30/2018 18:21 [facility] Chloride 107 96 - 110 mmol/L 03/30/2018 18:21 [facility] CO2 Total 24 22 - 32 mEq/L 03/30/2018 18:21 [facility] CREATININE 0.65 0.52 - 1.04 mg/dL 03/30/2018 18:21 [facility] eGFR >60 03/30/2018 18:21 [facility] Comment: Chronic renal impairment is defined as GFR <60 Multiply result by 1.210 for patients. eGFR calculated using the IDMS-traceable MDRD Study Equation. ??(effective 07/16/2014) Anion Gap 10 0 - 18 03/30/2018 18:21 [facility] GLUCOSE - [facility] 83 70 - 100 mg/dL 03/30/2018 18:21 [facility] Potassium 3.9 3.5 - 5.0 mEq/L 03/30/2018 18:21 [facility] Sodium 141 136 - 145 mEq/L 03/30/2018 18:21 [facility] TOTAL PROTEIN - [facility] 6.8 6.2 - 8.2 gm/dL 03/30/2018 18:21 [facility] SGOT/AST - [facility] 27 14 - 36 U/L 03/30/2018 18:21 [facility] SGPT/ALT - [facility] 36 9 - 52 U/L 8 18:21 [facility] 03/30/2018 17:5 3 EDT 03/30/2018 17:57 EDT Alverto Vasquez MD CHEMISTRY & BLOOD GAS ORDERA BLES Final Result Performing Organization Address [facility] de Phone Number [facility] * (ABNORMAL) ACETAMINOPHEN (03/30/2018 17:53 EDT) Acetaminophen <10(L) ug/mL 03/30/2018 18:22 EDT [facility] Comment: Not Available. Date and Time for last dose: ?? Therapeutic range: 10-30 Possible Toxicity: 150-200 Probable toxicity: ??> 200 Critical: >150 @ 4 hrs post ingestion. ?> 50 @ 12 hours post ingestion. 03/30/2018 17:5 3 EDT 03/30/2018 17:57 EDT Alverto Vasquez MD CHEMISTRY & BLOOD GAS ORDERA BLES Final Result Performing Organization Address [facility] Phone Number [facility] * THYROID CASCADE (03/30/2018 17:53 EDT) Pathologist [facility] TSH 0.82 0.46 - 4.68 uIU/mL 03/30/2018 18:49 EDT [facility] 03/30/2018 17:5 3 EDT 03/30/2018 17:57 EDT Alverto Vasquez MD CHEMISTRY & BLOOD GAS ORDERA BLES Final Result Performing Organization Address [facility] Co de Phone Number [facility] * COMPLETE BLOOD COUNT WITH DIFFERENTIAL (AUTO) (03/30/2018 17:53 EDT) ABSOLUTE NEUTROPHIL COUN - [facility] 4.22 1.7 - 7.0 10e3/ul 03/30/2018 18:09 EDT [facility] BASO # - [facility] 0.04 0.0 - 0.3 10e3/uL 03/30/2018 18:09 EDT [facility] BASO % - [facility] 1 0 - 2 % 03/30/2018 18:09 EDT [facility] EOS # - [facility] 0.21 0.05 - 0.5 10e3/uL 03/30/2018 18:09 [facility] EOS % - [facility] 3 0 - 5 % 03/30/2018 18:09 [facility] GRAN % - [facility] 63 40 - 80 % 03/30/2018 18:09 [facility] HEMATOCRIT - [facility] 39.5 34.0 - 47.0 % 03/30/2018 18:09 [facility] HEMOGLOBIN - [facility] 13.1 11.2 - 15.7 g/dl 03/30/2018 18:09 [facility] IG# - [facility] 0 0 - 0.07 10e3/uL 03/30/2018 18:09 [facility] IG% - [facility] 0 0 - 0.9 % 03/30/2018 18:09 [facility] LYMPH # - [facility] 1.89 0.9 - 2.9 10e3/uL 03/30/2018 18:09 [facility] LYMPH% - [facility] 28 20 - 40 % 03/30/2018 18:09 [facility] MEAN CORPUSCULAR HGB - [facility] 31.0 26 - 34 pg 03/30/2018 18:09 [facility] MEAN CORPUSCULAR HGB CONC - [facility] 33.2 31 - 36 g/dL 03/30/2018 18:09 [facility] MEAN CELL VOLUME - [facility] 93.6 77 - 100 fl 03/30/2018 18:09 [facility] MONO # - [facility] 0.38 0.3 - 0.9 10e3/uL 03/30/2018 18:09 [facility] MONO% - [facility] 6 0 - 12 % 03/30/2018 18:09 [facility] PLATELET COUNT 283 150 - 400 10e3/ul 03/30/2018 18:09 [facility] RED BLOOD COUNT - [facility] 4.22 3.8 - 5.2 10e6/ul 03/30/2018 18:09 [facility] RED CELL DISTRI WIDTH - [facility] 13.1 11.8 - 15.6 % 03/30/2018 18:09 EDT [facility] WHITE BLOOD COUNT - [facility] 6.7 3.5 - 10.5 10e3/ul 03/30/2018 18:09 EDT [facility] 03/30/2018 17:5 3 EDT 03/30/2018 17:57 EDT us Alverto Vasquez MD HEMATOLOGY & PF4 ORDERABLES Final Result [facility] documented in this encounter Visit Diagnoses Not on filedocumented in this encounter Care Teams Merchandise Flow Team Leader Relationship Specialty Start Date End Date Unknown, Provider, PCP - General 07/06/17 08/26/20 documented as of this encounter
== END 2024-09-22 15:32 | disposition home or self-care (01) ==
LOC: NCHCN 15:31
PROVIDERS: PCP Family Medicine; Visit Provider Nurse Practitioner Family
DX: N89.8 Other specified noninflammatory disorders of vagina (principal)
CPT/HCPCS: 87480; 87510; 87660

== ENCOUNTER 2025-05-10 15:02 | Outpatient (REF) | payer MEDICAID, SELFPAY ==
--- NOTE | 2025-05-10 14:45 | PAPFT_PTH ---
PATIENT: Edna Melgar LOC: [facility] U#:[id number] AGE/SX: 29/F ROOM: RE05/10/[address]: Yajaira Zamora DO : 1995 BED: DIS: 05/10/2025 SPEC #: [id number] RECD: 05/10/25 17:49 STATUS: JENNIFERDarío REQ #: [id number] DEBBIE: 05/10/25 14:[address]: Yajaira Zamora DEPT: [facility] Cytology RECD BY: Anu Joel ENTERED: 05/10/25 17:50 SP TYPE: PAPFT OTHR DR: Rosa M Elena Tissues: 1 - CX/ENDOCX FOR PAP SMEARS Procedures: PAP THIN PREP/[facility] Screening HPV DNA PROBE Comments: [id number] (HPV 16 & 18/45)
== END 2025-05-10 15:03 | disposition home or self-care (01) ==
LOC: LBN 15:02
PROVIDERS: PCP Family Medicine; Visit Provider Obstetrics & Gynecology
DX: Z12.4 Encounter for screening for malignant neoplasm of cervix (principal)
CPT/HCPCS: 88142; 87624

== ENCOUNTER 2025-07-06 09:47 | Outpatient (REF) | payer MEDICAID, SELFPAY ==
--- NOTE | 2025-07-06 09:47 | CER_PTH ---
PATIENT: Edna Melgar LOC: [facility] U#:[id number] AGE/SX: 30/F ROOM: RE07/06/[address]: Elyse Black MD : 1995 BED: DIS: 07/06/2025 SPEC #: [id number] RECD: 07/06/25 12:24 STATUS: LELIA REAnabela #: [id number] DEBBIE: 07/06/25 09:[address]: Elyse Black DEPT: Surgical Specimen RECD BY: Anu Joel ENTERED: 07/06/25 12:25 SP TYPE: CER OTHR DR: Rosa M Elena Tissues: 1 - CERVICAL BIOPSY Procedures: GROSS AND MICRO LEVEL 4 IMMUNOPEROXIDASE STAIN Comments: [id number]
== END 2025-07-06 09:48 | disposition home or self-care (01) ==
LOC: LBN 09:47
PROVIDERS: PCP Family Medicine; Visit Provider Obstetrics & Gynecology
DX: R87.613 High grade squamous intraepithelial lesion on cytologic smear of cervix (HGSIL) (principal); N87.1 Moderate cervical dysplasia
CPT/HCPCS: 88305; 88361

== ENCOUNTER 2025-09-10 12:58 | Emergency (ER) | payer MEDICAID, SELFPAY ==
[2025-09-10 12:59] VITALS: BP 112/67; PULSE 85; RESP 16; TEMP 37; O2SAT 97
[2025-09-10 13:05] VITALS: BP 112/67; PULSE 85; RESP 16; TEMP 37; O2SAT 97
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
== END 2025-09-10 13:43 | disposition home or self-care (01) ==
PROVIDERS: Emergency Provider Registered Nurse Emergency; PCP Family Medicine
DX: H65.192 Other acute nonsuppurative otitis media, left ear (principal)
CPT/HCPCS: 99282 ×2